=== PATIENT | female | born 1970 | race African-American/Black ===

== ENCOUNTER 2019-11-01 14:53 | Inpatient (IN) | payer BC, SELFPAY ==
[2019-11-01] VITALS (9 sets, daily range): BP systolic 79–103; BP diastolic 49–75; PULSE 71–79; RESP 16–20; TEMP 36.9–39.1; O2SAT 88–97; BMI 42.1
--- NOTE | ~2019-11-01 | XR_ITS ---
EXAMINATION: XR chest 1V portable DATE: 11/12/2019 06:49 INDICATION: Bilateral pneumonia. TECHNIQUE: A single frontal view of the chest was obtained. COMPARISON: Chest single view 11/09/2019 FINDINGS: There are airspace opacities in all lung zones bilaterally. No pleural effusion or pneumoth orax. The heart size is normal. There are surgical clips in left axilla. IMPRESSION: 1. Diffuse lung disease with slight improvement on the right, consistent with pneumonia versus pulmon rajendra edema versus acute respiratory distress syndrome (ARDS). Reviewed, dictated and finalized at location A. IMPRESSION: 1. Diffuse lung disease with slight improvement on the right, consistent with p neumonia versus pulmonary edema versus acute respiratory distress syndrome (CAPRICE S).
--- NOTE | ~2019-11-01 | XR_ITS ---
EXAMINATION: XR chest 1V portable DATE: 11/09/2019 06:05 INDICATION: Respiratory failure. TECHNIQUE: A single frontal view of the chest was obtained. COMPARISON: Chest single view 11/08/2019 FINDINGS: There are patchy airspace opacities in all lung zones bilaterally. No pleural effusion or p neumothorax. The heart size is normal. Surgical clips overlie left axilla. IMPRESSION: 1. Diffuse lung disease with slight improvement on the left, consistent with pneumonia versus pulmona ry edema versus acute respiratory distress syndrome (ARDS). Reviewed, dictated and finalized at location A. IMPRESSION: 1. Diffuse lung disease with slight improvement on the left, consistent with pn eumonia versus pulmonary edema versus acute respiratory distress syndrome (ARDS ).
--- NOTE | ~2019-11-01 | XR_ITS ---
EXAMINATION: XR chest 1V portable DATE: 11/01/2019 15:54 INDICATION: Cough and congestion. TECHNIQUE: A single frontal view of the chest was obtained. COMPARISON: Neck CT 11/09/2016 FINDINGS: There are airspace opacities involving all lung zones bilaterally with relative sparing of left upper lung zone. No pleural effusion or pneumothorax. The heart size is normal. IMPRESSION: 1. Diffuse lung disease, consistent with pneumonia versus pulmonary edema versus chronic lung disease . Reviewed, dictated and finalized at location A. IMPRESSION: 1. Diffuse lung disease, consistent with pneumonia versus pulmonary edema versu s chronic lung disease.
--- NOTE | ~2019-11-01 | XR_ITS ---
EXAMINATION: XR chest 1V portable DATE: 11/05/2019 05:49 INDICATION: Respiratory failure. TECHNIQUE: A single frontal view of the chest was obtained. COMPARISON: Chest single view 11/04/2019 FINDINGS: Lung volumes are small. There are airspace opacities involving all lung zones bilaterally. No pleural effusion or pneumothorax. The heart size is normal. IMPRESSION: 1. Stable diffuse lung disease, consistent with pneumonia versus pulmonary edema versus acute respira tory distress syndrome (ARDS). Reviewed, dictated and finalized at location A. IMPRESSION: 1. Stable diffuse lung disease, consistent with pneumonia versus pulmonary laureen a versus acute respiratory distress syndrome (ARDS).
--- NOTE | ~2019-11-01 | XR_ITS ---
XR chest 1V portable DATE: 11/07/2019 06:22 INDICATION: Respiratory failure TECHNIQUE: Portable upright AP chest on 11/07/2019 at 0546 hours COMPARISON: 11/06/2019 portable AP chest at 0519 hours FINDINGS: Persistent patchy consolidating infiltrates are again noted throughout both lung zones, rel atively sparing only the apices. No pleural effusion or pneumothorax is evident. Heart size appears within normal range. IMPRESSION: Stable extensive bilateral pulmonary infiltrates Reviewed, dictated and finalized at location A.
--- NOTE | ~2019-11-01 | XR_ITS ---
EXAMINATION: XR chest 1V portable DATE: 11/04/2019 06:06 INDICATION: Bilateral pneumonia. TECHNIQUE: A single frontal view of the chest was obtained. COMPARISON: Chest single view 11/03/2019 FINDINGS: The lung volumes are small. There are patchy airspace opacities throughout the lungs bilate rally. No pleural effusion or pneumothorax. The heart size is normal. IMPRESSION: 1. Stable diffuse lung disease, consistent with pulmonary edema versus pneumonia versus acute respira tory distress syndrome (ARDS). Reviewed, dictated and finalized at location A. IMPRESSION: 1. Stable diffuse lung disease, consistent with pulmonary edema versus pneumoni a versus acute respiratory distress syndrome (ARDS).
--- NOTE | ~2019-11-01 | US_ITS ---
EXAMINATION: US renal BI DATE: 11/02/2019 13:37 INDICATION: Acute renal failure TECHNIQUE: Multiple ultrasound grayscale images of the kidneys were obtained. COMPARISON: None. FINDINGS: The right kidney measures 10.1 x 4.7 x 3.9 cm. The left kidney measures 10.2 x 4.7 x 5.6 cm. The kidn eys demonstrate normal echogenicity. 2.9 cm anechoic cyst at the left kidney. There is no hydronephro sis in either kidney. No stones identified. The bladder is normal. IMPRESSION: 1. 2.9 cm left renal cyst. Otherwise normal kidneys with no hydronephrosis. Reviewed, dictated and finalized at location A.
--- NOTE | ~2019-11-01 | XR_ITS ---
EXAMINATION: XR chest 1V portable DATE: 11/03/2019 05:33 INDICATION: Pneumonia TECHNIQUE: frontal view of the chest was obtained. COMPARISON: Chest radiograph dated 11/03/2019 FINDINGS: Patchy airspace opacities throughout both lungs relatively sparing the apices which is without signif icant interval change accounting for differences in positioning. No pleural effusion or pneumothorax. The cardiomediastinal silhouette is normal. Surgical clips at the left axilla. IMPRESSION: 1. No significant change in bilateral airspace disease which could represent pneumonia or pulmonary e tye. Reviewed, dictated and finalized at location A. IMPRESSION: 1. No significant change in bilateral airspace disease which could represent pn eumonia or pulmonary edema.
--- NOTE | ~2019-11-01 | XR_ITS ---
XR chest 1V portable DATE: 11/08/2019 06:02 INDICATION: Respiratory failure TECHNIQUE: Portable upright AP chest on 11/08/2019 at 0526 hours COMPARISON: 11/07/2019 portable AP chest at 0546 hours FINDINGS: Extensive persistent lateral pulmonary infiltrates without significant change since 0. Heart size appears within normal limits. No pleural effusion or pneumothorax. Surgical clips overlie left axillary area. IMPRESSION: Persistent extensive bilateral pulmonary infiltrates, without significant change since 11/07/2019 Reviewed, dictated and finalized at location A. IMPRESSION: Persistent extensive bilateral pulmonary infiltrates, without signi ficant change since 11/07/2019
--- NOTE | ~2019-11-01 | XR_ITS ---
EXAMINATION: XR chest 1V portable DATE: 11/06/2019 05:50 INDICATION: Respiratory failure. TECHNIQUE: A single frontal view of the chest was obtained. COMPARISON: Chest single view 11/05/2019 FINDINGS: The lung volumes are small. There are patchy airspace opacities throughout the lungs bilate rally. No pleural effusion or pneumothorax. The heart size is normal. There are surgical clips in lef t axilla. IMPRESSION: 1. Stable diffuse lung disease, consistent with pneumonia versus pulmonary edema versus acute respira tory distress syndrome (ARDS). Reviewed, dictated and finalized at location A. IMPRESSION: 1. Stable diffuse lung disease, consistent with pneumonia versus pulmonary laureen a versus acute respiratory distress syndrome (ARDS).
--- NOTE | 2019-11-01 14:58 | ECG_ITS ---
Measurements Intervals Casa Rate: 77 P: 42 MT: 140 QRS: -10 QRSD: 105 T: -2 QT: 354 QTc: 401 Interpretive Statements SINUS RHYTHM INCOMPLETE RIGHT BUNDLE BRANCH BLOCK VOLTAGE CRITERIA FOR LVH BORDERLINE ST-T WAVE ABNORMALITY- ANT/INF LEADS BORDERLINE ECG Electronically Signed On 11-02-2019 7:13:56 CDT by Kayden Knapp D.O.
--- NOTE | 2019-11-01 15:14 | ED.URI ---
HPI - URI/Sore Throat General Chief Complaint: Upper Respiratory Infection Stated Complaint: COUGHING, TREATED WITH ANTIBX, NOT HELPING Time Seen by Provider: 11/01/19 15:15 Source: patient Mode of arrival: ambulatory Limitations: no limitations History of Present Illness HPI Narrative: A 49 y/o female presents to the ED with c/o a cough for 5 days. Pt states she was prescribed antibiotics over the phone by her PCP on (3 days ago) which she has been taking with no relief. Pt has become more SOB over the past few days and also c/o left-sided CP, diarrhea, and low grade fevers of 97 degrees F for a few days. Pt is not normally on oxygen at home. Pt notes that she works for [employer], but works over the phone and has not had contact with the residents. Pt has not taken Ibuprofen or Tylenol today. She denies smoking, alcohol use, drug use, sick contacts, and recent travel. Family member at bedside states she has not been experiencing any of the same symptoms as the pt. Onset (ago): day(s) () Related Data Home Medications Medication Instructions Recorded Confirmed amlodipine 11/01/19 carvedilol 11/01/19 doxycycline hyclate 11/01/19 fluoxetine mg 11/01/19 fluticasone propionate INTRANASAL 11/01/19 hydroxyzine HCl 11/01/19 lisinopril-hydrochlorothiazide tablet 11/01/19 methocarbamol mg 11/01/19 propranolol 11/01/19 spironolactone 11/01/19 trazodone 11/01/19 Allergies Allergy/AdvReac Type Severity Reaction Status Date / Time bupropion Allergy Severe HALLUCINATIONS Verified 11/09/16 14:28 & AGITATION Penicillins Allergy Severe Hives / Verified 11/09/16 14:28 Red Face latex Allergy Mild Rash Verified 11/09/16 14:28 Sulfa (Sulfonamide Allergy Mild Rash Verified 11/09/16 14:28 Antibiotics) Review of Systems Review of Systems: Narrative: CONSTITUTIONAL: Reports: low grade fevers of 97 degrees F; Denies chills, or sweats. CARDIOVASCULAR: Reports: left-sided CP; Denies palpitations, or edema. RESPIRATORY: Reports: cough, dyspnea GASTROINTESTINAL: Reports: diarrhea; Denies abdominal pain, nausea, vomiting. Neuro: Denies numbness Skin: Denies rash All systems reviewed & are unremarkable except as noted in HPI and below PMFSH Past Medical History Medical History Abnormal uterine bleeding Anxiety Back injury Depression Fibroids HTN (hypertension) IBS (irritable bowel syndrome) Panic disorder Wears glasses Surgical History Surgical History History of surgery on arm right Social History Social History (Updated 11/01/19 @ 15:39 by Samantha Anand) Smoking status: Never smoker Alcohol intake: never Substance use: never Comments PCP: Dr. Burnette Exam Narrative: Exam Narrative: GENERAL: Awake, alert, conversant HEAD: Normocephalic, atraumatic. NECK: Full range of motion CHEST: No respiratory distress, speaking in full sentences, no tachypnea HEART: Regular rate ABDOMEN: Non distended, non tender EXTREMITIES: Normal range of motion. No edema. SKIN: Warm, dry, no rash. NEURO: No focal deficits. Alert and oriented x3. Course Consultations Consultation #1: Discussed case with Dr. Bustos and accepted admission. Date: 11/01/19 Time: 15:56 Consultation #2: Discussed case with CELINE Krause and accepted admission. Date: 11/01/19 Time: 16:37 Vital Signs Vital signs: Vital Signs Temperature 36.9 C 11/01/19 14:56 Pulse Rate 79 11/01/19 14:56 Respiratory Rate 20 11/01/19 14:56 Blood Pressure 93/49 L 11/01/19 14:56 Pulse Oximetry 89 L 11/01/19 14:56 Temperature 39.1 C H 11/01/19 15:14 Pulse Rate 71 11/01/19 17:40 Respiratory Rate 18 11/01/19 17:40 Blood Pressure 103/75 11/01/19 17:40 Pulse Oximetry 97 11/01/19 17:40 MDM - URI/Sore Throat MDM Narrative Medical decision making narrative: Patient presents to the emergency department for eval
[2019-11-01 15:34] LABS: Basophils Percent Auto 0.1 % (0.2-1.2); Hematocrit 41.3 % (37.0-47.0); Hemoglobin 13.3 g/dL (12.0-15.0); Immature Granulocyte Absolute 0.07 K/mm3 (0.00-0.031); Immature Granulocyte Percent A 0.8 % (0-0.5); Lymphocytes Absolute Auto 1.23 K/mm3 (0.9-3.2); Lymphocytes Percent Auto 14.7 % (18.3-44.2); Mean Corpuscular HGB Conc 32.2 g/dl (32-36); Mean Corpuscular Hemoglobin 29.4 pg (26-34); Mean Corpuscular Volume 91.2 fl (80-100); Mean Platelet Volume 10.6 fl (7.4-10.4); Monocytes Absolute Auto 0.4 K/mm3 (0.1-0.6); Monocytes Percent Auto 5.1 % (2.6-8.5); Neutrophils Absolute Auto 6.7 K/mm3 (1.3-6.7); Neutrophils Percent Auto 79.3 % (45.5-73.1); Platelet Count Result 259 k/mm3 (150-375); Red Blood Count 4.53 M/mm3 (4.2-5.4); Red Cell Distribution Width 13.9 % (11.5-14.5); White Blood Count 8.4 K/mm3 (4.5-10.0)
[2019-11-01 15:37] LABS: Carboxyhemoglobin 0.5 % THb (0-2.0); Fractional Inspired Oxygen 32 %; HCO3 ABG 22.3 mEq/l (22.0-26.0); Methemoglobin ABG 0.3 %THb (0-1.5); Oxygen Content ABG 17.9 %vol (16.0-22.0); Oxygen Saturation ABG 95.9 % (95.0-100.0); Oxyhemoglobin 94.1 % THb (90.0-100.0); PCO2 ABG 36.5 mmHg (35.0-45.0); PO2 ABG 79.5 mmHg (80.0-100.0); PO2 FiO2 Ratio Arterial Blood 2.48 %; Reduced Hemoglobin 5.1 %THb (0-5.0); Total Hemoglobin 13.5 g/dL (12.0-18.0); pH ABG 7.403 (7.350-7.450)
[2019-11-01 15:38] LABS: Device NASAL CANNULA; Modified Allen's Test Pass; Site Drawn RIGHT RADIAL
[2019-11-01 15:43] LABS: Prothrombin Time 12.5 Seconds (11.1-14.7)
[2019-11-01 15:44] LABS: Partial Thromboplastin Time 32.8 SECONDS (22.3-36.8)
[2019-11-01 15:47] LABS: Alanine Aminotransferase 42 U/L (4-35); Alkaline Phosphatase 63 U/L (38-126); Aspartate Amino Transferase 61 U/L (14-36); Bilirubin,Total 0.7 mg/dL (0.2-1.3); Blood Urea Nitrogen 41 mg/dL (7-17); Calcium 8.7 mg/dL (8.4-10.2); Carbon Dioxide 24 mmol/L (22-30); Chloride 102 mmol/L (98-107); Estimated CRCL calculation 19 ml/min; Estimated Glomerular Filt Rate 15; Glucose 111 mg/dL (65-105); Lactate Dehydrogenase 1072 U/L (313-618); Potassium 4.4 mmol/L (3.4-5.0); Sodium 138 mmol/L (137-145)
[2019-11-01] MEDS: SODIUM CHLORIDE 0.9% IV 1,000 ML 999 ML IV CONT (15:53)
[2019-11-01 15:57] LABS: NT Pro B Type Natriuretic Pept 126 PG/ML (5-100); Troponin I < 0.012 ng/mL (0.000-0.034)
[2019-11-01 16:00] LABS: CRP 26.2 mg/dL (<1.0)
[2019-11-01 16:05] LABS: Lactic Acid Reflex 1.2 mmol/L (0.7-2.1)
[2019-11-01 17:23] LABS: Add Urine Microscopic? YES; Appearance Urine Cloudy (Clear); Bacteria Urine 3+ /hpf; Bilirubin Urine 1+ (Negative); Blood Urine 1+ (Negative); Color Urine Amber (Yellow); Glucose Urine UA Negative (Negative); Hyaline Casts Urine 50+ /lpf; Ketones Urine Trace mg/dL (Negative); Leukocyte Esterase Ur Negative LEU/UL (Negative); Mucus Urine Moderate /lpf; Nitrate Urine Negative (Negative); Protein Urine 2+ mg/dL (Negative); Specific Grav Ur 1.025 (1.001-1.035); Squamous Epithelial Cell Urine Many /hpf (Few); WBC Clumps Urine Present /HPF
--- NOTE | 2019-11-01 18:04 | ADMGEN ---
This patient, Jeaneth Junior, was admitted to Intensive Care Unit-2 at 1750. Patient/family oriented to hospital policies and general routines including ID bracelet, bed and alarms, visiting hours, pain management, procedures, bathroom and other care routines, personal items, smoking policy, room service/diet, and visiting hours. Valuables list has been completed. Information on how to activate the Rapid Response Team has been discussed. Patient/Family are encouraged to report perceived risks to care and to ask questions if they do not understand what they are told or what they should do.
[2019-11-01] MEDS: SODIUM CHLORIDE 0.9% IV 500 ML 999 ML IV CONT (18:18)
--- NOTE | 2019-11-01 19:41 | P.PCNBED_ITS ---
Procedures Central Line Placement: Right Femoral: Discussed w/ patient and/or surrogate, the non-emergent placement of a central venous catheter, including its clinical necessity/indication & associated potential risks & complications.: Yes The patient and/or surrogate understand(s) and acknowledge(s) the need to proceed with central venous catheter insertion as an important element of the patient's clinical management.: Yes (I have discussed with the patient and/or surrogate) Central Line Date: 11/01/19 Pre-procedural Time-Out was completed immediately before starting the procedure and confirmed: Patient Identification, Site, Procedure, Patient Position and the Availability of Requisite Equipment.: Yes Patient Position: supine Patient placed on monitor/pulse ox: Yes Provider Prep: mask, sterile gown, sterile gloves and Max. sterile barrier precautions Central line prep: Povidone-Iodine 1% and sterile full body sheet applied Local anesthesia used: lidocaine 1% Ultrasound used for placement: Yes Central line lumen inserted: triple Icelandic: 7 Length (cm): 16 Depth of Insertion (cm): 16 Post procedure: sutured in place Patient tolerated procedure: well Complications: none
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
[2019-11-01] MEDS: SODIUM CHLORIDE 0.9% IV 1,000 ML 50 ML IV CONT (19:53)
[2019-11-02] VITALS (18 sets, daily range): BP systolic 95–113; BP diastolic 61–86; PULSE 70–95; RESP 18–30; TEMP 37.1–38.5; O2SAT 90–95; BMI 42.1
[2019-11-02] MEDS: BENZOCAINE/MENTHOL (*BKC) 18 EA LOZENGE 1 LOZENGE PO (02:36)
[2019-11-02] MEDS: GUAIFENESIN/DEXTROMETHORPHAN 10 ML UDC PO ×4 (02:36→20:39)
[2019-11-02 05:12] LABS: Basophils Percent Auto 0.2 % (0.2-1.2); Eosinophils Percent Auto 0.1 % (0-4.4); Hematocrit 35.8 % (37.0-47.0); Hemoglobin 11.4 g/dL (12.0-15.0); Immature Granulocyte Percent A 1.1 % (0-0.5); Lymphocytes Absolute Auto 1.22 K/mm3 (0.9-3.2); Lymphocytes Percent Auto 13.7 % (18.3-44.2); Mean Corpuscular HGB Conc 31.8 g/dl (32-36); Mean Corpuscular Hemoglobin 29.6 pg (26-34); Mean Platelet Volume 10.5 fl (7.4-10.4); Monocytes Absolute Auto 0.5 K/mm3 (0.1-0.6); Monocytes Percent Auto 5.7 % (2.6-8.5); Neutrophils Percent Auto 79.2 % (45.5-73.1); Platelet Count Result 240 k/mm3 (150-375); Red Blood Count 3.85 M/mm3 (4.2-5.4); White Blood Count 8.9 K/mm3 (4.5-10.0)
[2019-11-02 05:23] LABS: Lactic Acid 0.6 mmol/L (0.7-2.1)
[2019-11-02 05:24] LABS: Alanine Aminotransferase 35 U/L (4-35); Albumin Level 3.3 g/dL (3.5-5.1); Alkaline Phosphatase 56 U/L (38-126); Aspartate Amino Transferase 49 U/L (14-36); Bilirubin,Total 0.5 mg/dL (0.2-1.3); Blood Urea Nitrogen 40 mg/dL (7-17); Calcium 7.9 mg/dL (8.4-10.2); Carbon Dioxide 22 mmol/L (22-30); Chloride 108 mmol/L (98-107); Estimated CRCL calculation 29 ml/min; Estimated Glomerular Filt Rate 26; Glucose 110 mg/dL (65-105); Potassium 4.3 mmol/L (3.4-5.0); Sodium 142 mmol/L (137-145)
--- NOTE | 2019-11-02 08:34 | WPDCNINT ---
Assessment and Plan Assessment and plan (1) Respiratory failure: Qualifiers: Chronicity: acute Respiratory failure complication: hypoxia Qualified Code(s): J96.01 - Acute respiratory failure with hypoxia Code(s): J96.90 - Respiratory failure, unspecified, unspecified whether with hypoxia or hypercapnia Status: Acute Assessment and Plan: patient with worsening respiratory failure along with cough, fevers, myalgias. - patient had lymphopenia, elevated CRP, elevated LDH, elevated creatinine - bilateral pneumonia chest x-ray - given all the above symptoms and lab /radiology results, patient fits the criteria for COVID-19, - COVID-19 Swab was sent out to lab. waiting results - influenza was negative - patient started on azithromycin and ceftriaxone (2) Bilateral pneumonia: Qualifiers: Lung location: unspecified part of lung Pneumonia type: due to unspecified organism Qualified Code(s): J18.9 - Pneumonia, unspecified organism Code(s): J18.9 - Pneumonia, unspecified organism Status: Acute Assessment and Plan: patient currently on high flow nasal cannula, will maintain O2 sats greater than 92% - continue antibiotics as above - Robitussin p.r.n. for cough along with benzocaine lozenges (3) Acute kidney injury: Code(s): N17.9 - Acute kidney failure, unspecified Status: Acute Assessment and Plan: patient with acute kidney injury with elevated creatinine of 3.8 on admission. - Patient was gently hydrated with improvement in creatinine to 2.4 this morning. - Continue monitor urine output, electrolytes and renal function (4) Depression: Code(s): F32.9 - Major depressive disorder, single episode, unspecified Status: Chronic Assessment and Plan: patient with history depression, on fluoxetine, will continue (5) Anxiety: Code(s): F41.9 - Anxiety disorder, unspecified Status: Chronic (6) DVT prophylaxis: Code(s): Z29.9 - Encounter for prophylactic measures, unspecified Status: Acute Assessment and Plan: will add heparin SQ Additional Plan discussed with patient updated with her condition and plan of care. I answered all questions and updated her with her lab and radiology reports. Code status: Full code Critical care time spent: 38 minutes Due to a high probability of clinically significant, life threatening deterioration, the patient required my highest level of preparedness to intervene emergently and I personally spent this critical care time directly and personally managing the patient. This critical care time included obtaining a history; examining the patient; pulse oximetry; ordering and review of studies; arranging urgent treatment with development of a management plan; evaluation of patient's response to treatment; frequent reassessment; and discussions with other providers. It was exclusive of separately billable procedures and treating other patients and teaching time. 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 Patient started complaining of shortness of breath and left-sided chest pain which is worsened since the last 3 days. Patient also complained of diarrhea and low-grade fevers. In states she works at [employer] but has been working over the phone and from home, And has not
[2019-11-02] MEDS: FLUOXETINE HCL 20 MG CAP PO (09:22)
[2019-11-02] MEDS: HEPARIN SODIUM 5,000 UNITS/ML VIAL 5000 UNITS SUB-Q ×2 (09:22→20:36)
[2019-11-02] MEDS: ACETAMINOPHEN 325 MG TABLET 650 MG PO ×3 (09:30→23:39)
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
[2019-11-02] MEDS: SODIUM CHLORIDE 0.9% IV 1,000 ML 50 ML IV CONT (15:28)
[2019-11-02 15:40] LABS: Creatine Kinase 432 U/L (30-135)
[2019-11-02 17:15] LABS: Creatinine Urine 199.3 mg/dL; Total Protein Urine Random 44 mg/dL
[2019-11-02 17:19] LABS: Sodium Urine Random 120 meq/L
--- NOTE | 2019-11-02 17:50 | PM.IMPN ---
Progress Note: A&P Assessment and Plan (1) DVT prophylaxis: Code(s): Z29.9 - Encounter for prophylactic measures, unspecified Status: Acute Assessment and Plan: On heparin. (2) Anxiety: Code(s): F41.9 - Anxiety disorder, unspecified Status: Chronic Assessment and Plan: On SSRI. (3) Depression: Code(s): F32.9 - Major depressive disorder, single episode, unspecified Status: Chronic Assessment and Plan: Continue fluoxetine. (4) Bilateral pneumonia: Qualifiers: Lung location: unspecified part of lung Pneumonia type: due to unspecified organism Qualified Code(s): J18.9 - Pneumonia, unspecified organism Code(s): J18.9 - Pneumonia, unspecified organism Status: Acute Assessment and Plan: The patient is on a Zithromax and Rocephin. Pt has a central line pt is on levophed and oxygen. (5) Respiratory failure: Qualifiers: Chronicity: acute Respiratory failure complication: hypoxia Qualified Code(s): J96.01 - Acute respiratory failure with hypoxia Code(s): J96.90 - Respiratory failure, unspecified, unspecified whether with hypoxia or hypercapnia Status: Acute Assessment and Plan: The patient is on 8 L. The patient is a full code. Pt is on vasopressors, iv fluids, Iv rocephin and iv azithromycin. benzocaine lozenges. I agree with career coordinator plan, long discussion with him about patient progress. To save critical supplies and PAPR mask, shorter note from me. Awaiting covid testing. (6) Acute kidney injury: Code(s): N17.9 - Acute kidney failure, unspecified Status: Acute Assessment and Plan: Pt seen by nephrology. ARF secondary to dehydration continue IV hydration. Renal Us shows 2.9 cm left renal cyst. continue to monitor BMP. 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 symptomatic with chest pain, diarrhea and shortness of breath. Pt has central line insitu and is currently on 8 liters of oxygen. awaiting Covid testing. CXr shows BL pneumonia. Flu screen negative. 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 Chest x-ray was read as diffuse lung disease, consistent with pneumonia versus pulmonary edema versus chronic lung disease. Review of Systems Review of Systems: All systems reviewed & are unremarkable except as noted in HPI and below Constitutional: Constitutional: Reports fatigue Cardiovascular: Cardiovascular: Reports chest pain at rest and Reports dyspnea Respiratory: Respiratory: Reports chest congestion, Reports cough and Reports dyspnea Comments: Pleuritc chest pain Gastrointestinal: Gastrointestinal: Reports diarrhea Exam Narrative: Exam Narrative: Critically unwell middle aged lady on oxygen in ICU Objective Data Vital Signs Vital Signs: Vital Signs - 24 hr 11/01/19 18:00 11/01/19 18:10 11/01/19 19:30 Temperature 37.2 C Pulse Rate 75 77 Respiratory Rate 19 Blood Pressure 79/52 L 99/65 L Pulse Oximetry 91 11/01/19 20:00 11/01/19 21:24 11/01/19 22:00 Temperature 37.0 C Pulse Rate 77 74 Respiratory Rate 20 Blood Pressure 98/70 L Pulse Oximetry 92 93 11/02/19 00:00 11/02/19 02:00 11/02/19 04:00 Temperature 37.1 C 37.1 C Pulse Rate 70 81 74 Respiratory Rate 19 20 Blood Pressure 100/65 107/71 Pulse Oximetry 93 93 11/02/19 06:00 11/02/19 07:46 11/02/19 08:00 Temperature 37.8 C H Pulse Rate 79 76 Respiratory Rate 25 H Blood Pressure 104/68 Pulse Oximetry 95 95 11/02/19 09:30 11/02/19 10:00 11/02/19 10:30 Temperature 37.7 C H 37.4 C Pulse Rate 80 Respiratory Rate Blood Pressure Pulse Oximetry 11/02/19 12:00 11/02/19 14:00 11/02/19 15:56 Temperature 37.4 C 38.5 C H Pulse Rate 78 79 Respiratory Rate 19 Blood Pressure 95
[2019-11-03] VITALS (20 sets, daily range): BP systolic 103–146; BP diastolic 65–99; PULSE 68–97; RESP 14–29; TEMP 37.2–38.2; O2SAT 83–96
[2019-11-03] MEDS: BENZOCAINE/MENTHOL (*BKC) 18 EA LOZENGE 1 LOZENGE PO (04:20)
[2019-11-03] MEDS: GUAIFENESIN/DEXTROMETHORPHAN 10 ML UDC PO ×5 (04:20→21:05)
[2019-11-03 04:43] LABS: Basophils Percent Auto 0.3 % (0.2-1.2); Eosinophils Percent Auto 0.3 % (0-4.4); Immature Granulocyte Percent A 1.9 % (0-0.5); Lymphocytes Absolute Auto 1.94 K/mm3 (0.9-3.2); Lymphocytes Percent Auto 18.3 % (18.3-44.2); Mean Corpuscular HGB Conc 31.4 g/dl (32-36); Mean Corpuscular Hemoglobin 29.5 pg (26-34); Mean Corpuscular Volume 93.8 fl (80-100); Mean Platelet Volume 10.3 fl (7.4-10.4); Monocytes Absolute Auto 0.5 K/mm3 (0.1-0.6); Monocytes Percent Auto 4.9 % (2.6-8.5); Neutrophils Absolute Auto 7.9 K/mm3 (1.3-6.7); Neutrophils Percent Auto 74.3 % (45.5-73.1); Platelet Count Result 278 k/mm3 (150-375); Red Blood Count 3.73 M/mm3 (4.2-5.4); Red Cell Distribution Width 14.4 % (11.5-14.5); White Blood Count 10.6 K/mm3 (4.5-10.0)
[2019-11-03 05:12] LABS: Blood Urea Nitrogen 31 mg/dL (7-17); Calcium 7.8 mg/dL (8.4-10.2); Carbon Dioxide 23 mmol/L (22-30); Chloride 109 mmol/L (98-107); Estimated CRCL calculation 49 ml/min; Estimated Glomerular Filt Rate 48; Glucose 101 mg/dL (65-105); Lactate Dehydrogenase 1044 U/L (313-618); Phosphorus 3.7 mg/dL (2.5-4.5); Potassium 4.2 mmol/L (3.4-5.0); Sodium 141 mmol/L (137-145)
[2019-11-03 06:27] LABS: CRP 24.7 mg/dL (<1.0)
[2019-11-03] MEDS: HEPARIN SODIUM 5,000 UNITS/ML VIAL 5000 UNITS SUB-Q ×2 (09:01→21:07)
[2019-11-03] MEDS: FLUOXETINE HCL 20 MG CAP PO (09:01)
[2019-11-03] MEDS: SODIUM CHLORIDE 0.9% IV 1,000 ML 50 ML IV CONT (09:14)
--- NOTE | 2019-11-03 10:38 | PCDIET ---
ICU Rounding Note: Patient refused one meal yesterday and ate 100% of other two meals on regular diet with Ensure Compact BID. Last recorded weight is 104.5kg which is stable. Bowel Motility: BM x 1 on 11/02/19. Labs Reviewed: BUN (31), Cr (1.4), Areli Ca (8.36) Meds Noted: Zithromax, Rocephin, Levophed, NS at 50mL/hr Additional Notes: No documented skin breakdown. Following daily in ICU rounds. Assessing/reassessing every 3 days.
--- NOTE | 2019-11-03 10:51 | WPDINTPN ---
Progress Note: A&P Assessment and Plan (1) Respiratory failure: Qualifiers: Chronicity: acute Respiratory failure complication: hypoxia Qualified Code(s): J96.01 - Acute respiratory failure with hypoxia Code(s): J96.90 - Respiratory failure, unspecified, unspecified whether with hypoxia or hypercapnia Status: Acute Assessment and Plan: patient presented with worsening respiratory failure along with cough, fevers, myalgias. - patient had lymphopenia, elevated CRP, elevated LDH, elevated creatinine, bilateral pneumonia chest x-ray - currently being treated for viral pneumonia - given all the above symptoms and lab /radiology results, patient fits the criteria for COVID-19, - COVID-19 Swab was sent to outside lab. waiting results - influenza was negative - patient started on azithromycin and ceftriaxone (2) Bilateral pneumonia: Qualifiers: Lung location: unspecified part of lung Pneumonia type: due to unspecified organism Qualified Code(s): J18.9 - Pneumonia, unspecified organism Code(s): J18.9 - Pneumonia, unspecified organism Status: Acute Assessment and Plan: patient currently on high flow nasal cannula, will maintain O2 sats greater than 92% - continue antibiotics as above - Robitussin p.r.n. for cough along with benzocaine lozenges - Combivent p.r.n. - blood cultures, urine cultures and sputum cultures are negative (3) Acute kidney injury: Code(s): N17.9 - Acute kidney failure, unspecified Status: Acute Assessment and Plan: patient with acute kidney injury with elevated creatinine of 3.8 on admission. this could be related to diuretic use, dehydration, hypovolemia, infection - Patient was gently hydrated with improvement in creatinine to 1.4 this morning. - Continue monitor urine output, electrolytes and renal function (4) Depression: Qualifiers: Depression Type: unspecified Qualified Code(s): F32.9 - Major depressive disorder, single episode, unspecified Code(s): F32.9 - Major depressive disorder, single episode, unspecified Status: Chronic Assessment and Plan: patient with history depression, on fluoxetine, will continue (5) Anxiety: Code(s): F41.9 - Anxiety disorder, unspecified Status: Chronic (6) DVT prophylaxis: Code(s): Z29.9 - Encounter for prophylactic measures, unspecified Status: Acute Assessment and Plan: will add heparin SQ (7) Essential hypertension: Code(s): I10 - Essential (primary) hypertension Status: Acute Assessment and Plan: patient has history of essential hypertension, blood pressures are elevated, will add amlodipine which is her home medication Additional Plan discussed with patient updated with her condition and plan of care. I answered all questions and updated her with her lab and radiology reports. Code status: Full code Critical care time spent: 33 minutes Due to a high probability of clinically significant, life threatening deterioration, the patient required my highest level of preparedness to intervene emergently and I personally spent this critical care time directly and personally managing the patient. This critical care time included obtaining a history; examining the patient; pulse oximetry; ordering and review of studies; arranging urgent treatment with development of a management plan; evaluation of patient's response to treatment; frequent reassessment; and discussions with other providers. It was exclusive of separately billable procedures and treating other patients and teaching time. Please see Assessment and Plan section and the rest of the note for further information on patient assessment and treatment Subjective Date/time seen: 11/03/19 10:51 Reason for consult: acute respiratory failure with pneumonia Patient seen examined this morning. Urine output has been adequate, creatinin
--- NOTE | 2019-11-03 11:57 | PM.IMPN ---
Progress Note: A&P Assessment and Plan (1) Respiratory failure: Qualifiers: Chronicity: acute Respiratory failure complication: hypoxia Qualified Code(s): J96.01 - Acute respiratory failure with hypoxia Code(s): J96.90 - Respiratory failure, unspecified, unspecified whether with hypoxia or hypercapnia Status: Acute Assessment and Plan: The patient remains on 8 L but stable since admission. The patient is a full code. Pt has not required any vasopressors. She remains on IVF and IV abx. COVID testing pending. Continue to wean O2 as tolerated. Remove central line when safe to do so. (2) Bilateral pneumonia: Qualifiers: Lung location: unspecified part of lung Pneumonia type: due to unspecified organism Qualified Code(s): J18.9 - Pneumonia, unspecified organism Code(s): J18.9 - Pneumonia, unspecified organism Status: Acute Assessment and Plan: CXR in admission showing bilateral airspace disease. Patient with fever but fever curve improving. The patient currently on Zithromax and Rocephin. Combivent available as needed. Sputum and urine cx negative. BCx NGTD. Wean O2 as tolerated. (3) Acute kidney injury: Code(s): N17.9 - Acute kidney failure, unspecified Status: Acute Assessment and Plan: Cr 3.8 on admission. Pt seen by nephrology. ARF secondary to dehydration +/- ATN. Renal US shows 2.9 cm left renal cyst. Cr trending downward with IVF. Unclear on baseline renal function but suspect it is normal. Continue IVF. Appreciate nephrology input. (4) HTN (hypertension): Qualifiers: Hypertension type: essential hypertension Qualified Code(s): I10 - Essential (primary) hypertension Code(s): I10 - Essential (primary) hypertension Status: Acute Assessment and Plan: Blood pressure dropped to 79/52 on admission. Central line was placed but patient has not required norepinephrine. BP reviewed on 11/03/19. BP has come up and actually her Norvasc has been resumed. Continue to monitor. (5) Depression: Qualifiers: Depression Type: unspecified Qualified Code(s): F32.9 - Major depressive disorder, single episode, unspecified Code(s): F32.9 - Major depressive disorder, single episode, unspecified Status: Chronic Assessment and Plan: Mood stable. Continue fluoxetine. (6) DVT prophylaxis: Code(s): Z29.9 - Encounter for prophylactic measures, unspecified Status: Acute Assessment and Plan: Heparin SQ. Subjective Date/time seen: 11/03/19 11:57 Interval history: 49yo female here for acute respiratory failure from pneumonia. Chart reviewed. Assuming care. Patient feels short of breath at rest. Worse with minimal exertion. No chest pain or abdominal pain. She does have diffuse myalgias. No nausea or vomiting. She does get mildly nauseous related to coughing jags. Cough is nonproductive. She does become hypoxic with the coughing jags according to the nurse. She has not required any of the norepinephrine since admission. Eating small amounts. Exam Narrative: Exam Narrative: tm 101.3 yesterday. 98.9 146/81 90 28 93% 8L HFNC Gen - NARD, appears comfortable. No conversational dyspnea Chest -mild diffuse inspiratory crackles. No wheezing. Becomes tachypneic with exertion. CV - RRR S1/S2. Telemetry showing no significant dysrhythmias. Abd - Soft, NT/ND, Positive BS. Right femoral line dressing is clean dry -Soriano catheter secured draining clear yellow urine. Ext - No pedal edema Psych - Nml mood and affect Skin - Warm and dry Objective Data Vital Signs Vital Signs: Vital Signs - 24 hr 11/02/19 12:00 11/02/19 14:00 11/02/19 15:56 Temperature 99.4 F 101.3 F H Pulse Rate 78 79 Respiratory Rate 19 Blood Pressure 95/65 L Pulse Oximetry 90 11/02/19 16:00 11/02/19 17:27 11/02/19 18:00 Temperature 101.3 F H
[2019-11-03] MEDS: AMLODIPINE BESYLATE 5 MG TABLET 10 MG PO (12:19)
[2019-11-03] MEDS: ACETAMINOPHEN 325 MG TABLET 650 MG PO ×2 (12:22→21:05)
[2019-11-03 16:11] LABS: Procalcitonin 1.44 ng/mL (<0.10)
[2019-11-04] VITALS (23 sets, daily range): BP systolic 102–149; BP diastolic 48–102; PULSE 66–94; RESP 17–36; TEMP 36.8–38.1; O2SAT 88–99
--- NOTE | 2019-11-04 | ECHO_ITS ---
Patient Info Name: Jeaneth Junior Age: 49 years : 1970 Gender: Female Ht: 62 in Wt: 243 lbs BSA: 2.26 m2 HR: 79 bpm BP: 102 / 48 mmHg Heart Rhythm: Sinus Rhythm Technical Quality: Good Exam Date: 11/04/2019 12:52 PM Exam Location: [facility] Exam Room: ICU 02 Patient Status: Inpatient Admit Date: 11/01/2019 Staff Ordering Physician: Cristhian Mcintyre MD Tobacco Sprayer: Sonya Saunders RCS Attending Provider: Enoc Guerrier MD Exam Type: CA echo doppler color flow Study Info Indications - fluid volume excess Complete two-dimensional, color flow and Doppler transthoracic echocardiogram is performed. Summary 1. Normal left ventricular size and global function with no focal wall motion abnormalities. Mild concentric left ventricular hypertrophy. Borderline criteria for diastolic dysfunction. Measured ejection fraction 64%, visual estimate 60-65%. 2. Left atrial chamber dimension is mildly enlarged. 3. There is moderate tricuspid valve regurgitation. 4. Mild pulmonary hypertension, estimated pulmonary arterial systolic pressure is 42 mmHg. 5. Normal sinus rhythm. Left Ventricle Left ventricular chamber dimension is normal. Left ventricular systolic function is normal, estimated at 60-65%. There is mildly increased left ventricular wall thickness. Left ventricular septal wall motion is normal. The left ventricular diastolic function is abnormal. Right Ventricle Right ventricular chamber dimension is normal. Right ventricular systolic function is normal. Left Atria Left atrial chamber dimension is mildly enlarged. Right Atria Right atrial chamber dimension is normal. Aortic Valve The aortic valve is trileaflet. There is no aortic valve sclerosis. There is no aortic valve stenosis. There is no aortic valve regurgitation. Pulmonic Valve The pulmonic valve is normal. There is no pulmonic valve stenosis. There is no pulmonic regurgitation. Mitral Valve The mitral valve has normal leaflets. There is no mitral valve stenosis. There is no mitral valve regurgitation. Tricuspid Valve The tricuspid valve leaflets are normal. There is no significant tricuspid valve stenosis. There is moderate tricuspid valve regurgitation. Mild pulmonary hypertension, estimated pulmonary arterial systolic pressure is 42 mmHg. Pericardium/Pleural The pericardium appears normal. There is no pericardial effusion. Inferior Vena Cava Normal inferior vena cava with >50% collapse upon inspiration consistent with Empty right atrial pressure, 10 mmHg. Aorta The aortic root size at the sinus of Valsalva is normal. The prox ascending aorta size is normal. Left Ventricular Outflow Tract Name Value Normal LVOT 2D LVOT Diameter 2.0 cm LVOT Doppler LVOT Peak Gradient 7 mmHg LVOT Mean Gradient 4 mmHg LVOT VTI 24 cm LVOT VTI/AV VTI Ratio 0.9 LVOT Stroke Volume 80 ml LVOT CO 19.5 l/min
[2019-11-04] MEDS: GUAIFENESIN/DEXTROMETHORPHAN 10 ML UDC PO ×4 (04:06→20:30)
[2019-11-04] MEDS: ACETAMINOPHEN 325 MG TABLET 650 MG PO ×2 (04:06→20:34)
[2019-11-04] MEDS: SODIUM CHLORIDE 0.9% IV 1,000 ML 50 ML IV CONT (04:08)
[2019-11-04 04:36] LABS: Basophils Absolute Auto 0.1 K/mm3 (0.0-0.1); Basophils Percent Auto 0.6 % (0.2-1.2); Eosinophils Absolute Auto 0.1 K/mm3 (0-0.3); Eosinophils Percent Auto 1.2 % (0-4.4); Hematocrit 35.8 % (37.0-47.0); Hemoglobin 11.3 g/dL (12.0-15.0); Immature Granulocyte Absolute 0.43 K/mm3 (0.00-0.031); Lymphocytes Absolute Auto 1.68 K/mm3 (0.9-3.2); Lymphocytes Percent Auto 19.4 % (18.3-44.2); Mean Corpuscular HGB Conc 31.6 g/dl (32-36); Mean Corpuscular Volume 91.8 fl (80-100); Mean Platelet Volume 9.8 fl (7.4-10.4); Monocytes Absolute Auto 0.7 K/mm3 (0.1-0.6); Monocytes Percent Auto 7.6 % (2.6-8.5); Neutrophils Absolute Auto 5.8 K/mm3 (1.3-6.7); Neutrophils Percent Auto 66.2 % (45.5-73.1); Platelet Count Result 324 k/mm3 (150-375); Red Cell Distribution Width 14.2 % (11.5-14.5); White Blood Count 8.7 K/mm3 (4.5-10.0)
[2019-11-04 04:58] LABS: Alanine Aminotransferase 37 U/L (4-35); Albumin Level 3.2 g/dL (3.5-5.1); Alkaline Phosphatase 74 U/L (38-126); Aspartate Amino Transferase 54 U/L (14-36); Bilirubin,Total 0.5 mg/dL (0.2-1.3); Blood Urea Nitrogen 18 mg/dL (7-17); Calcium 8.2 mg/dL (8.4-10.2); Carbon Dioxide 26 mmol/L (22-30); Chloride 107 mmol/L (98-107); Estimated CRCL calculation 63 ml/min; Estimated Glomerular Filt Rate > 60; Glucose 106 mg/dL (65-105); Magnesium 1.8 mg/dL (1.6-2.3); Phosphorus 3.3 mg/dL (2.5-4.5); Potassium 4.3 mmol/L (3.4-5.0); Sodium 139 mmol/L (137-145)
[2019-11-04 05:08] LABS: CRP 23.9 mg/dL (<1.0)
[2019-11-04 05:39] LABS: Alveolar/Arterial O2 Gradient 399.2 mmHg; Base Excess ABG -0.9 mEq/l (+/-2.0); Carboxyhemoglobin 0.3 % THb (0-2.0); Device HIGH FLOW NASAL CANN; Fractional Inspired Oxygen 70 %; HCO3 ABG 23.5 mEq/l (22.0-26.0); Methemoglobin ABG 0.4 %THb (0-1.5); Modified Allen's Test Pass; Oxygen Content ABG 15.8 %vol (16.0-22.0); Oxygen Saturation ABG 90.7 % (95.0-100.0); Oxyhemoglobin 89.6 % THb (90.0-100.0); PCO2 ABG 38.3 mmHg (35.0-45.0); PO2 ABG 58.7 mmHg (80.0-100.0); PO2 FiO2 Ratio Arterial Blood 0.84 %; Reduced Hemoglobin 9.7 %THb (0-5.0); Site Drawn RIGHT RADIAL; Total Hemoglobin 12.5 g/dL (12.0-18.0); pH ABG 7.406 (7.350-7.450)
[2019-11-04] MEDS: FLUOXETINE HCL 20 MG CAP PO (07:38)
[2019-11-04] MEDS: AMLODIPINE BESYLATE 5 MG TABLET 10 MG PO (07:38)
[2019-11-04] MEDS: HEPARIN SODIUM 5,000 UNITS/ML VIAL 5000 UNITS SUB-Q ×2 (07:39→20:29)
--- NOTE | 2019-11-04 08:44 | PM.IMPN ---
Progress Note: A&P Assessment and Plan (1) Respiratory failure: Qualifiers: Chronicity: acute Respiratory failure complication: hypoxia Qualified Code(s): J96.01 - Acute respiratory failure with hypoxia Code(s): J96.90 - Respiratory failure, unspecified, unspecified whether with hypoxia or hypercapnia Status: Acute Assessment and Plan: The patient's O2 requirement worsened yesterday and now on 13L (up from 8 L). The patient is a full code. Pt has not required any vasopressors. She remains on IVF and IV abx. COVID testing pending. Continue to wean O2 as tolerated. Discussed with mold laminator. He offered hydroxychloroquine but patient declined at this time. (2) Bilateral pneumonia: Qualifiers: Lung location: unspecified part of lung Pneumonia type: due to unspecified organism Qualified Code(s): J18.9 - Pneumonia, unspecified organism Code(s): J18.9 - Pneumonia, unspecified organism Status: Acute Assessment and Plan: CXR in admission showing bilateral airspace disease. Patient still with fever intermittently. The patient currently on Zithromax and Rocephin. Combivent available as needed. Sputum and urine cx negative. BCx NGTD. Wean O2 as tolerated. (3) Acute kidney injury: Code(s): N17.9 - Acute kidney failure, unspecified Status: Acute Assessment and Plan: Cr 3.8 on admission. Pt seen by nephrology. ARF secondary to dehydration +/- ATN. Renal US shows 2.9 cm left renal cyst otherwise normal. Cr trending downward with IVF to Cr of 1.1. Unclear on baseline renal function but suspect it is normal. Continue IVF at low dose since patient not eating much. Appreciate nephrology input. (4) Elevated transaminase level: Code(s): R74.0 - Nonspecific elevation of levels of transaminase and lactic acid dehydrogenase [LDH] Status: Acute Assessment and Plan: AST and ALT elevated on admission to 61 and 42 respectfully. Levels checked periodically and have fluctuated but not worsened. Suspect related to the infectious etiology as above. Continue to monitor periodically. (5) HTN (hypertension): Qualifiers: Hypertension type: essential hypertension Qualified Code(s): I10 - Essential (primary) hypertension Code(s): I10 - Essential (primary) hypertension Status: Acute Assessment and Plan: Blood pressure dropped to 79/52 on admission. Central line was placed but patient has not required norepinephrine. BP has improved and Norvasc has been resumed. BP reviewed on 11/04/19 and remains well controlled. Will cut back Norvasc so as not to over correct. Continue to monitor. (6) Depression: Qualifiers: Depression Type: unspecified Qualified Code(s): F32.9 - Major depressive disorder, single episode, unspecified Code(s): F32.9 - Major depressive disorder, single episode, unspecified Status: Chronic Assessment and Plan: Mood stable. Continue fluoxetine. (7) DVT prophylaxis: Code(s): Z29.9 - Encounter for prophylactic measures, unspecified Status: Acute Assessment and Plan: Heparin SQ. Subjective Date/time seen: 11/04/19 08:44 Interval history: 49yo female here for acute respiratory failure from pneumonia. Patient required increasing supplemental oxygen yesterday and overnight. She is currently on 13 L up from 8 L yesterday. She has some mild nausea with coughing jags. The coughing jags are associated with hypoxia. No nausea or vomiting otherwise. No diarrhea. Cough is nonproductive. No chest pain. Patient with shortness of breath at rest worse with minimal activity. Patient is not eating much. Exam Narrative: Exam Narrative: tm 100.8 98.5 118/81 76 25 94% 13L Gen - NARD, appears comfortable Chest - scattered inspiratory rhonchi, becomes more tachypneic with minimal activity CV - RRR S1/S2. Telemetry showing
--- NOTE | 2019-11-04 08:45 | WPDINTPN ---
Progress Note: A&P Assessment and Plan (1) Respiratory failure: Qualifiers: Chronicity: acute Respiratory failure complication: hypoxia Qualified Code(s): J96.01 - Acute respiratory failure with hypoxia Code(s): J96.90 - Respiratory failure, unspecified, unspecified whether with hypoxia or hypercapnia Status: Acute Assessment and Plan: patient presented with worsening respiratory failure along with cough, fevers, myalgias. - patient had lymphopenia, elevated CRP, elevated LDH, elevated creatinine, bilateral pneumonia chest x-ray - Suspected to have COVID-19 and PCR has come back positive - influenza was negative - patient started on empiric azithromycin and ceftriaxone - I discussed pros and cons of treating with empiric hydroxychloroquine. Patient at this time does not want to try any unproven treatment. - patient she presented with acute kidney injury and received fluids. Patient on IV fluids at this time. I will discontinue IV fluids and start Lasix. - although patient is hypoxic she is not in any respiratory distress. She is saturating adequately on the high-flow nasal cannula at this time. I will continue close monitoring and try Lasix. obviously if she worsens, then she will need to be intubated and placed on invasive mechanical ventilation. - continue triple isolation (2) Bilateral pneumonia: Qualifiers: Lung location: unspecified part of lung Pneumonia type: due to unspecified organism Qualified Code(s): J18.9 - Pneumonia, unspecified organism Code(s): J18.9 - Pneumonia, unspecified organism Status: Acute Assessment and Plan: patient currently on high flow nasal cannula, will maintain O2 sats greater than 92% - continue antibiotics as above - Robitussin p.r.n. for cough along with benzocaine lozenges - Combivent p.r.n. - blood cultures, urine cultures and sputum cultures are negative (3) Acute kidney injury: Code(s): N17.9 - Acute kidney failure, unspecified Status: Acute Assessment and Plan: patient with acute kidney injury with elevated creatinine of 3.8 on admission. this could be related to diuretic use, dehydration, hypovolemia, infection - Patient was gently hydrated with improvement in creatinine to 1.1 this morning. - Continue monitor urine output, electrolytes and renal function - Lasix at this time due to worsening Hypoxia. (4) Depression: Qualifiers: Depression Type: unspecified Qualified Code(s): F32.9 - Major depressive disorder, single episode, unspecified Code(s): F32.9 - Major depressive disorder, single episode, unspecified Status: Chronic Assessment and Plan: patient with history depression, on fluoxetine, will continue (5) Anxiety: Code(s): F41.9 - Anxiety disorder, unspecified Status: Chronic Assessment and Plan: Monitor and treat as needed (6) DVT prophylaxis: Code(s): Z29.9 - Encounter for prophylactic measures, unspecified Status: Acute Assessment and Plan: heparin SQ (7) Essential hypertension: Code(s): I10 - Essential (primary) hypertension Status: Acute Assessment and Plan: patient has history of essential hypertension, blood pressures are elevated, will add amlodipine which is her home medication Additional Plan Discussed with patient updated with her condition and plan of care. I answered all questions and updated her with her lab and radiology reports. Code status: Full code Critical care time spent: 32 minutes Due to a high probability of clinically significant, life threatening deterioration, the patient required my highest level of preparedness to intervene emergently and I personally spent this critical care time directly and personally managing the patient. This critical care time included obtaining a history; examining the patient; pulse oximetry; ordering and review of s
[2019-11-04] MEDS: FUROSEMIDE INJ 40 MG/4 ML VIAL IV PUSH (10:14)
--- NOTE | 2019-11-04 11:09 | PCDIET ---
ICU Rounding Note: Patient is eating fairly well on regular diet. Intakes averaged ~50% of meals yesterday. Patient only taking sips of Ensure Compact, so would discontinue due to reports of patient eating well today and not caring for supplement. Last recorded weight is 107.8kg which is increased. Bowel Motility: +BMs today, liquid. Labs Reviewed: Glu (106), BUN (18), Cr (1.1), Alb (3.2), CRP (23.9) Meds Noted: Combivent, Zithromax, Rocephin, NS at 50mL/hr Additional Notes: No reported skin breakdown. Recommend continuing regular diet at this time. Following daily in ICU rounds. Assessing/reassessing every 3 days.
[2019-11-04] MEDS: FAMOTIDINE 20 MG TABLET PO ×2 (13:18→20:29)
[2019-11-05] VITALS (13 sets, daily range): BP systolic 103–133; BP diastolic 60–97; PULSE 69–99; RESP 17–29; TEMP 36.4–37; O2SAT 93–100
[2019-11-05] MEDS: GUAIFENESIN/DEXTROMETHORPHAN 10 ML UDC PO ×3 (03:22→12:38)
[2019-11-05] MEDS: ACETAMINOPHEN 325 MG TABLET 650 MG PO (03:23)
[2019-11-05 05:18] LABS: Basophils Absolute Auto 0.1 K/mm3 (0.0-0.1); Basophils Percent Auto 0.6 % (0.2-1.2); Eosinophils Absolute Auto 0.1 K/mm3 (0-0.3); Eosinophils Percent Auto 1.6 % (0-4.4); Hematocrit 35.1 % (37.0-47.0); Hemoglobin 11.2 g/dL (12.0-15.0); Immature Granulocyte Absolute 0.58 K/mm3 (0.00-0.031); Immature Granulocyte Percent A 6.7 % (0-0.5); Lymphocytes Absolute Auto 1.83 K/mm3 (0.9-3.2); Mean Corpuscular HGB Conc 31.9 g/dl (32-36); Mean Corpuscular Volume 90.9 fl (80-100); Mean Platelet Volume 9.6 fl (7.4-10.4); Monocytes Absolute Auto 0.7 K/mm3 (0.1-0.6); Monocytes Percent Auto 8.5 % (2.6-8.5); Neutrophils Absolute Auto 5.4 K/mm3 (1.3-6.7); Neutrophils Percent Auto 61.6 % (45.5-73.1); Platelet Count Result 347 k/mm3 (150-375); Red Blood Count 3.86 M/mm3 (4.2-5.4); Red Cell Distribution Width 13.9 % (11.5-14.5); White Blood Count 8.7 K/mm3 (4.5-10.0)
[2019-11-05 05:19] LABS: Alveolar/Arterial O2 Gradient 610.3 mmHg; Base Excess ABG 0.7 mEq/l (+/-2.0); Carboxyhemoglobin 0.3 % THb (0-2.0); Fractional Inspired Oxygen 100 %; HCO3 ABG 25.3 mEq/l (22.0-26.0); Methemoglobin ABG 0.4 %THb (0-1.5); Oxygen Content ABG 16.1 %vol (16.0-22.0); Oxygen Saturation ABG 92.4 % (95.0-100.0); Oxyhemoglobin 90.6 % THb (90.0-100.0); PCO2 ABG 40.1 mmHg (35.0-45.0); PO2 ABG 62.6 mmHg (80.0-100.0); PO2 FiO2 Ratio Arterial Blood 0.63 %; Reduced Hemoglobin 8.7 %THb (0-5.0); Total Hemoglobin 12.6 g/dL (12.0-18.0); pH ABG 7.417 (7.350-7.450)
[2019-11-05 05:20] LABS: Device NON-REBREATHER MASK; Modified Allen's Test Pass; Site Drawn LEFT RADIAL
[2019-11-05 05:34] LABS: D Dimer 1.71 ug/mL (<0.48)
[2019-11-05 05:39] LABS: Alanine Aminotransferase 31 U/L (4-35); Albumin Level 3.1 g/dL (3.5-5.1); Alkaline Phosphatase 74 U/L (38-126); Aspartate Amino Transferase 42 U/L (14-36); Bilirubin,Total 0.6 mg/dL (0.2-1.3); Blood Urea Nitrogen 15 mg/dL (7-17); Calcium 8.2 mg/dL (8.4-10.2); Carbon Dioxide 29 mmol/L (22-30); Chloride 102 mmol/L (98-107); Estimated CRCL calculation 62 ml/min; Estimated Glomerular Filt Rate > 60; Glucose 106 mg/dL (65-105); Lactate Dehydrogenase 938 U/L (313-618); Potassium 3.9 mmol/L (3.4-5.0); Sodium 138 mmol/L (137-145)
[2019-11-05 05:45] LABS: Troponin I < 0.012 ng/mL (0.000-0.034)
[2019-11-05 05:48] LABS: CRP 23.1 mg/dL (<1.0)
--- NOTE | 2019-11-05 08:40 | WPDINTPN ---
Progress Note: A&P Assessment and Plan (1) Respiratory failure: Qualifiers: Chronicity: acute Respiratory failure complication: hypoxia Qualified Code(s): J96.01 - Acute respiratory failure with hypoxia Code(s): J96.90 - Respiratory failure, unspecified, unspecified whether with hypoxia or hypercapnia Status: Acute Assessment and Plan: patient presented with worsening respiratory failure along with cough, fevers, myalgias. She had lymphopenia, elevated CRP, elevated LDH, elevated creatinine, bilateral pneumonia chest x-ray - influenza was negative - Suspected to have COVID-19 and SARS-CoV-2 PCR positive - patient started on empiric azithromycin and ceftriaxone. I will continue at this time - I discussed pros and cons of treating with empiric hydroxychloroquine. Patient at this time does not want to try any unproven treatment. - patient she presented with acute kidney injury and received fluids. IV fluids discontinued yesterday. I will continue Lasix. - although patient is hypoxic she is not in any respiratory distress. She is saturating adequately on the non-rebreather mask at this time. I will continue close monitoring and continue Lasix. Obviously if she worsens, then she will need to be intubated and placed on invasive mechanical ventilation. Patient is agreeable for that if need arises - Patient is in Airborne, Droplet and Contact Isolation - Follow Troponin, LDH, D-Dimer, CRP, Procal, Ferritin periodically (2) Bilateral pneumonia: Qualifiers: Lung location: unspecified part of lung Pneumonia type: due to unspecified organism Qualified Code(s): J18.9 - Pneumonia, unspecified organism Code(s): J18.9 - Pneumonia, unspecified organism Status: Acute Assessment and Plan: patient currently on high flow nasal cannula, will maintain O2 sats greater than 92% - continue antibiotics as above - Robitussin p.r.n. for cough along with benzocaine lozenges - Combivent p.r.n. - blood cultures, urine cultures and sputum cultures are negative so far (3) Acute kidney injury: Code(s): N17.9 - Acute kidney failure, unspecified Status: Acute Assessment and Plan: patient with acute kidney injury with elevated creatinine of 3.8 on admission. this could be related to diuretic use, dehydration, hypovolemia, infection - Patient was gently hydrated with improvement in creatinine to 1.0 this morning. - Continue monitor urine output, electrolytes and renal function - continue Lasix at this time due to worsening hypoxia to bring intake and output balance to even. (4) Depression: Qualifiers: Depression Type: unspecified Qualified Code(s): F32.9 - Major depressive disorder, single episode, unspecified Code(s): F32.9 - Major depressive disorder, single episode, unspecified Status: Chronic Assessment and Plan: patient with history depression, on fluoxetine, will continue (5) Anxiety: Code(s): F41.9 - Anxiety disorder, unspecified Status: Chronic Assessment and Plan: Monitor and treat as needed (6) DVT prophylaxis: Code(s): Z29.9 - Encounter for prophylactic measures, unspecified Status: Acute Assessment and Plan: heparin SQ will switch to Lovenox q.day (7) Essential hypertension: Code(s): I10 - Essential (primary) hypertension Status: Acute Assessment and Plan: monitor and treat as needed amlodipine was discontinued because of soft blood pressure (8) Diastolic CHF: Code(s): I50.30 - Unspecified diastolic (congestive) heart failure Status: Acute Assessment and Plan: ECHO 11/03 1. Normal left ventricular size and global function with no focal wall motion abnormalities. Mild concentric left ventricular hypertrophy. Borderline criteria for diastolic dysfunction. Measured ejection fraction 64%, visual estimate 60-65%. 2. Left atrial
--- NOTE | 2019-11-05 08:55 | PM.IMPN ---
Progress Note: A&P Assessment and Plan (1) Respiratory failure: Qualifiers: Chronicity: acute Respiratory failure complication: hypoxia Qualified Code(s): J96.01 - Acute respiratory failure with hypoxia Code(s): J96.90 - Respiratory failure, unspecified, unspecified whether with hypoxia or hypercapnia Status: Acute Assessment and Plan: The patient's O2 requirement worsened yesterday and now on 15L. The patient is a full code. Pt has not required any vasopressors. She remains on IV abx. COVID testing positive. Continue to wean O2 as tolerated. Discussed with airport ramp attendant. He offered hydroxychloroquine but patient declined at this time. (2) COVID-19: Code(s): U07.1 - COVID-19 Status: Acute Assessment and Plan: DDimer 1.71. LDH and CRP trending down. Wean O2 as toelrated. As above. (3) Bilateral pneumonia: Qualifiers: Lung location: unspecified part of lung Pneumonia type: due to unspecified organism Qualified Code(s): J18.9 - Pneumonia, unspecified organism Code(s): J18.9 - Pneumonia, unspecified organism Status: Acute Assessment and Plan: CXR on admission showing bilateral airspace disease. Patient still with fever intermittently. The patient currently on Zithromax and Rocephin. Combivent available as needed. Sputum and urine cx negative. BCx NGTD. Wean O2 as tolerated. (4) Acute kidney injury: Code(s): N17.9 - Acute kidney failure, unspecified Status: Acute Assessment and Plan: Cr 3.8 on admission. Pt seen by nephrology. ARF secondary to dehydration +/- ATN. Renal US shows 2.9 cm left renal cyst otherwise normal. Cr trended downward with IVF. IVF have been stopped and Lasix IV given intermittently. Cr better at 1.0 today. Continue to monitor with the Lasix. (5) Elevated transaminase level: Code(s): R74.0 - Nonspecific elevation of levels of transaminase and lactic acid dehydrogenase [LDH] Status: Acute Assessment and Plan: AST and ALT elevated on admission to 61 and 42 respectfully. Levels checked periodically and have improved. Suspect related to the infectious etiology as above. Continue to monitor periodically. (6) HTN (hypertension): Qualifiers: Hypertension type: essential hypertension Qualified Code(s): I10 - Essential (primary) hypertension Code(s): I10 - Essential (primary) hypertension Status: Acute Assessment and Plan: Blood pressure dropped to 79/52 on admission. Central line was placed but patient has not required norepinephrine. BP has improved and Norvasc was resumed but then stopped due to soft BP. BP reviewed on 11/05/19 and remains well controlled. Continue to monitor. (7) Depression: Qualifiers: Depression Type: unspecified Qualified Code(s): F32.9 - Major depressive disorder, single episode, unspecified Code(s): F32.9 - Major depressive disorder, single episode, unspecified Status: Chronic Assessment and Plan: Mood stable. Continue fluoxetine. (8) DVT prophylaxis: Code(s): Z29.9 - Encounter for prophylactic measures, unspecified Status: Acute Assessment and Plan: Lovenox Subjective Date/time seen: 11/05/19 08:55 Interval history: 49yo female here for acute respiratory failure from pneumonia. Patient required increasing supplemental oxygen yesterday and overnight and now on 15L NRB. No CP or abd pain. No n/v. no diarrhea. SOB persistent and worse with minimal activity. +cough. UOP decreased overnight. Exam Narrative: Exam Narrative: tm 100.6 97.6 110/71 71 28 98% 15L Gen - appears comfortable at rest but becomes tachypneic with minimal exertion; develops conversational dyspnea Chest - fine inspir crackles CV - RRR S1/S2. Telemetry showing episode of atrial tach Abd - soft, NT/ND, +BS -Soriano catheter secured draining jeanie
[2019-11-05] MEDS: FUROSEMIDE INJ 40 MG/4 ML VIAL IV PUSH (09:19)
[2019-11-05] MEDS: FLUOXETINE HCL 20 MG CAP PO (09:19)
[2019-11-05] MEDS: HEPARIN SODIUM 5,000 UNITS/ML VIAL 5000 UNITS SUB-Q (09:19)
[2019-11-05] MEDS: FAMOTIDINE 20 MG TABLET PO ×2 (09:19→20:54)
--- NOTE | 2019-11-05 10:55 | PCDIET ---
ICU Rounding Note: Pt current nutrition is regular diet. Nutrition recommendation: No new recommendations at this time. Last recorded weight is 90.3 kg. Bowel Motility: BM 11/03 Labs Reviewed:Na 138, K 3.9, Glu 106 Ca 8.2 Meds Noted:Pecid started Additional Notes: Paient positive for COVID19, currently on high flow O2, not on pressers, with adequate I&O's / urine output, no edema noted. Pt eating 25-80% of meals with most meals being 50% or greater. No current nutrition concerns. Following daily in ICU rounds. Assessing/reassessing q 5 days.
[2019-11-05] MEDS: ENOXAPARIN 40 MG/0.4 ML SYRINGE SUB-Q (20:54)
[2019-11-06] VITALS (14 sets, daily range): BP systolic 104–140; BP diastolic 63–87; PULSE 66–92; RESP 16–36; TEMP 36.6–37; O2SAT 90–100
[2019-11-06] MEDS: ALTEPLASE 2 MG VIAL (CATHFLO) IV PUSH ×2 (00:16→00:20)
[2019-11-06 04:53] LABS: Alveolar/Arterial O2 Gradient 440.4 mmHg; Base Excess ABG 3.8 mEq/l (+/-2.0); Carboxyhemoglobin 0.3 % THb (0-2.0); Fractional Inspired Oxygen 80 %; HCO3 ABG 29.1 mEq/l (22.0-26.0); Methemoglobin ABG 0.5 %THb (0-1.5); Oxygen Content ABG 20.8 %vol (16.0-22.0); Oxygen Saturation ABG 96.1 % (95.0-100.0); Oxyhemoglobin 94.2 % THb (90.0-100.0); PO2 ABG 81.7 mmHg (80.0-100.0); PO2 FiO2 Ratio Arterial Blood 1.02 %; Total Hemoglobin 15.7 g/dL (12.0-18.0); pH ABG 7.419 (7.350-7.450)
[2019-11-06 04:55] LABS: Modified Allen's Test Pass; Site Drawn LEFT RADIAL
[2019-11-06 04:56] LABS: Device NON-REBREATHER MASK
[2019-11-06 05:26] LABS: Basophils Absolute Auto 0.1 K/mm3 (0.0-0.1); Basophils Percent Auto 0.9 % (0.2-1.2); Eosinophils Absolute Auto 0.2 K/mm3 (0-0.3); Eosinophils Percent Auto 2.3 % (0-4.4); Hemoglobin 11.2 g/dL (12.0-15.0); Immature Granulocyte Absolute 0.75 K/mm3 (0.00-0.031); Immature Granulocyte Percent A 8.3 % (0-0.5); Lymphocytes Absolute Auto 1.93 K/mm3 (0.9-3.2); Lymphocytes Percent Auto 21.3 % (18.3-44.2); Mean Corpuscular Volume 90.7 fl (80-100); Mean Platelet Volume 9.5 fl (7.4-10.4); Monocytes Absolute Auto 0.9 K/mm3 (0.1-0.6); Monocytes Percent Auto 9.8 % (2.6-8.5); Neutrophils Absolute Auto 5.2 K/mm3 (1.3-6.7); Neutrophils Percent Auto 57.4 % (45.5-73.1); Platelet Count Result 368 k/mm3 (150-375); Red Blood Count 3.86 M/mm3 (4.2-5.4); Red Cell Distribution Width 13.7 % (11.5-14.5); White Blood Count 9.1 K/mm3 (4.5-10.0)
[2019-11-06 05:40] LABS: Alanine Aminotransferase 39 U/L (4-35); Albumin Level 3.2 g/dL (3.5-5.1); Alkaline Phosphatase 82 U/L (38-126); Aspartate Amino Transferase 50 U/L (14-36); Bilirubin,Total 0.5 mg/dL (0.2-1.3); Blood Urea Nitrogen 16 mg/dL (7-17); Calcium 8.1 mg/dL (8.4-10.2); Carbon Dioxide 30 mmol/L (22-30); Chloride 100 mmol/L (98-107); Estimated CRCL calculation 66 ml/min; Estimated Glomerular Filt Rate > 60; Glucose 108 mg/dL (65-105); Sodium 137 mmol/L (137-145)
[2019-11-06 05:47] LABS: Troponin I < 0.012 ng/mL (0.000-0.034)
[2019-11-06 05:50] LABS: D Dimer 6.34 ug/mL (<0.48)
--- NOTE | 2019-11-06 08:41 | WPDINTPN ---
Progress Note: A&P Assessment and Plan (1) Respiratory failure: Qualifiers: Chronicity: acute Respiratory failure complication: hypoxia Qualified Code(s): J96.01 - Acute respiratory failure with hypoxia Code(s): J96.90 - Respiratory failure, unspecified, unspecified whether with hypoxia or hypercapnia Status: Acute Assessment and Plan: patient presented with worsening respiratory failure along with cough, fevers, myalgias. She had lymphopenia, elevated CRP, elevated LDH, elevated creatinine, bilateral pneumonia chest x-ray - influenza was negative - COVID-19 and SARS-CoV-2 PCR positive - patient started on empiric azithromycin and ceftriaxone. I will continue at this time - Dr. Mcintyre discussed pros and cons of treating with empiric hydroxychloroquine. Patient at this time does not want to try any unproven treatment. - patient currently on high-flow nasal cannula and 100% non-rebreather, O2 sats have been 98-100% except for which she is eating or having a bout of cough she desaturates. - She does not seem to be any respiratory distress at this time, will continue supplemental oxygen and if she worsens and requires to be intubated and placed on mechanical ventilation, Patient is agreeable for that if need arises - Patient is on Airborne, Droplet and Contact Isolation - Follow Troponin, LDH, D-Dimer, CRP, Procal, Ferritin periodically - will give 1 dose of Bumex (2) Bilateral pneumonia: Qualifiers: Lung location: unspecified part of lung Pneumonia type: due to unspecified organism Qualified Code(s): J18.9 - Pneumonia, unspecified organism Code(s): J18.9 - Pneumonia, unspecified organism Status: Acute Assessment and Plan: patient currently on high flow nasal cannula, will maintain O2 sats greater than 92% - continue antibiotics as above - Robitussin p.r.n. for cough along with benzocaine lozenges - Combivent p.r.n. - blood cultures, urine cultures and sputum cultures are negative so far (3) Acute kidney injury: Code(s): N17.9 - Acute kidney failure, unspecified Status: Acute Assessment and Plan: patient with acute kidney injury with elevated creatinine of 3.8 on admission. this could be related to diuretic use, dehydration, hypovolemia, infection - Patient was gently hydrated with improvement in creatinine to 1.0 this morning. off IV fluids - Continue monitor urine output, electrolytes and renal function - low urine output, will try Bumex (4) Depression: Qualifiers: Depression Type: unspecified Qualified Code(s): F32.9 - Major depressive disorder, single episode, unspecified Code(s): F32.9 - Major depressive disorder, single episode, unspecified Status: Chronic Assessment and Plan: patient with history depression, on fluoxetine, will continue (5) Anxiety: Code(s): F41.9 - Anxiety disorder, unspecified Status: Chronic Assessment and Plan: Monitor and treat as needed (6) DVT prophylaxis: Code(s): Z29.9 - Encounter for prophylactic measures, unspecified Status: Acute Assessment and Plan: Lovenox q.day (7) Essential hypertension: Code(s): I10 - Essential (primary) hypertension Status: Acute Assessment and Plan: monitor and treat as needed amlodipine was discontinued because of soft blood pressure (8) Diastolic CHF: Qualifiers: Heart failure chronicity: unspecified Qualified Code(s): I50.30 - Unspecified diastolic (congestive) heart failure Code(s): I50.30 - Unspecified diastolic (congestive) heart failure Status: Acute Assessment and Plan: ECHO 11/03 1. Normal left ventricular size and global function with no focal wall motion abnormalities. Mild concentric left ventricular hypertrophy. Borderline criteria for diastolic dysfunction. Measured ejection fraction 64%, visual estimate 60-65%. 2. Lef
[2019-11-06] MEDS: FLUOXETINE HCL 20 MG CAP PO (09:26)
[2019-11-06] MEDS: FAMOTIDINE 20 MG TABLET PO ×2 (09:26→19:44)
[2019-11-06] MEDS: BUMETANIDE INJ 1 MG/4 ML VIAL IV PUSH (09:26)
--- NOTE | 2019-11-06 11:25 | PCDIET ---
Nutrition Follow-Up Complete: Nutrition Diagnosis: Involuntary weight loss related to medical issues as evidenced by reported 2-13# weight loss without trying. Nutrition Goal: Patient to consume 75% of meals or greater. Goal in progress. Patient consuming 50-75% of most meals on regular diet which is appropriate. Ensure Compact re-ordered which is acceptable, though patient not taking entirely. Last recorded weight is 99.3 kg which is increased. +I/O and decreased urine output noted. Bowel Motility: BM X 1 on 11/04/19. Labs Reviewed: Glu (108), Alb (3.2), Aerli Ca (8.74) Meds Noted: Combivent, Pepcid, Zithromax, Prozac, Rocephin, Bumex Additional Notes: No documented skin breakdown. Will continue to monitor with same goal. Nutrition Monitoring and Evaluation: Follow up every 5 days.
--- NOTE | 2019-11-06 15:58 | PM.IMPN ---
Progress Note: A&P Assessment and Plan (1) Respiratory failure: Qualifiers: Chronicity: acute Respiratory failure complication: hypoxia Qualified Code(s): J96.01 - Acute respiratory failure with hypoxia Code(s): J96.90 - Respiratory failure, unspecified, unspecified whether with hypoxia or hypercapnia Status: Acute Assessment and Plan: The patient's O2 requirement worsening and now on NC and NRB mask. The patient is a full code. Pt has not required any vasopressors. She remains on IV abx. COVID testing positive. Invensivist offered hydroxychloroquine but patient declined at this time. Continue to wean O2 as tolerated. Discussed with interlocking installer. (2) COVID-19: Code(s): U07.1 - COVID-19 Status: Acute Assessment and Plan: DDimer 1.71 but now 6.34. LDH 1072 on admission but trending down. CRP 26.2 on admission but also trending down. Wean O2 as tolerated. As above. (3) Bilateral pneumonia: Qualifiers: Lung location: unspecified part of lung Pneumonia type: due to unspecified organism Qualified Code(s): J18.9 - Pneumonia, unspecified organism Code(s): J18.9 - Pneumonia, unspecified organism Status: Acute Assessment and Plan: CXR on admission showing bilateral airspace disease. Fever ws intermittent but no fever past 48 hours now. The patient currently on Zithromax and Rocephin Day 6. Combivent available as needed but not using much. Sputum and urine cx negative. BCx NGTD. Wean O2 as tolerated. (4) Acute kidney injury: Code(s): N17.9 - Acute kidney failure, unspecified Status: Acute Assessment and Plan: Cr 3.8 on admission. Pt seen by nephrology. ARF secondary to dehydration +/- ATN. Renal US shows 2.9 cm left renal cyst otherwise normal. Cr trended downward with IVF. IVF have been stopped and Lasix IV given intermittently. Cr stable at 1.0 today. Bumex x1 given today. Continue to monitor. (5) Elevated transaminase level: Code(s): R74.0 - Nonspecific elevation of levels of transaminase and lactic acid dehydrogenase [LDH] Status: Acute Assessment and Plan: AST and ALT elevated on admission to 61 and 42 respectfully. Levels checked periodically and have waxed and waned but never above 100. Suspect related to the infectious etiology as above. Continue to monitor periodically. (6) HTN (hypertension): Qualifiers: Hypertension type: essential hypertension Qualified Code(s): I10 - Essential (primary) hypertension Code(s): I10 - Essential (primary) hypertension Status: Acute Assessment and Plan: Blood pressure dropped to 79/52 on admission. Central line was placed but patient has not required norepinephrine. BP has improved and Norvasc was resumed briefly but then stopped. BP reviewed on 11/06/19 and remains well controlled. Continue to monitor. (7) Depression: Qualifiers: Depression Type: unspecified Qualified Code(s): F32.9 - Major depressive disorder, single episode, unspecified Code(s): F32.9 - Major depressive disorder, single episode, unspecified Status: Chronic Assessment and Plan: Mood stable. Continue fluoxetine. (8) DVT prophylaxis: Code(s): Z29.9 - Encounter for prophylactic measures, unspecified Status: Acute Assessment and Plan: Lovenox Subjective Date/time seen: 11/06/19 15:58 Interval history: 49yo female here for acute respiratory failure from pneumonia. Patient requiring NC and NRB mask for her hypoxia. She feels SOB with exertion. She was up to the chair yesterday but this wore her out. She is eating okay. No n/v. No diarrhea. Had chest pain yesterday but not today. Exam Narrative: Exam Narrative: AF 111/66 83% on NC (off the NRB mask) so mask replaced. Gen - appears more comfortable. Chest - distant but mostly clear BS, less tachypne
[2019-11-06] MEDS: GUAIFENESIN/DEXTROMETHORPHAN 10 ML UDC PO ×2 (15:59→19:44)
[2019-11-06] MEDS: ENOXAPARIN 40 MG/0.4 ML SYRINGE SUB-Q (19:44)
[2019-11-07] VITALS (15 sets, daily range): BP systolic 93–132; BP diastolic 64–92; PULSE 70–86; RESP 13–30; TEMP 36.4–37.5; O2SAT 83–99
[2019-11-07] MEDS: ACETAMINOPHEN 325 MG TABLET 650 MG PO ×3 (00:12→20:56)
[2019-11-07 04:23] LABS: Alveolar/Arterial O2 Gradient 452.6 mmHg; Base Excess ABG 3.8 mEq/l (+/-2.0); Carboxyhemoglobin 0.3 % THb (0-2.0); Fractional Inspired Oxygen 80 %; HCO3 ABG 29.3 mEq/l (22.0-26.0); Methemoglobin ABG 0.6 %THb (0-1.5); Oxygen Saturation ABG 93.9 % (95.0-100.0); Oxyhemoglobin 92.4 % THb (90.0-100.0); PCO2 ABG 46.7 mmHg (35.0-45.0); PO2 ABG 68.8 mmHg (80.0-100.0); PO2 FiO2 Ratio Arterial Blood 0.86 %; Reduced Hemoglobin 6.7 %THb (0-5.0); Total Hemoglobin 18.5 g/dL (12.0-18.0); pH ABG 7.416 (7.350-7.450)
[2019-11-07 04:24] LABS: Device NON-REBREATHER MASK; Modified Allen's Test Pass; Site Drawn LEFT RADIAL
[2019-11-07 06:06] LABS: Basophils Absolute Auto 0.1 K/mm3 (0.0-0.1); Basophils Percent Auto 0.9 % (0.2-1.2); Eosinophils Absolute Auto 0.2 K/mm3 (0-0.3); Eosinophils Percent Auto 2.6 % (0-4.4); Hematocrit 34.7 % (37.0-47.0); Hemoglobin 11.3 g/dL (12.0-15.0); Immature Granulocyte Absolute 0.85 K/mm3 (0.00-0.031); Immature Granulocyte Percent A 9.1 % (0-0.5); Lymphocytes Absolute Auto 1.91 K/mm3 (0.9-3.2); Lymphocytes Percent Auto 20.5 % (18.3-44.2); Mean Corpuscular HGB Conc 32.6 g/dl (32-36); Mean Corpuscular Hemoglobin 29.5 pg (26-34); Mean Corpuscular Volume 90.6 fl (80-100); Mean Platelet Volume 9.1 fl (7.4-10.4); Monocytes Percent Auto 10.9 % (2.6-8.5); Neutrophils Absolute Auto 5.2 K/mm3 (1.3-6.7); Platelet Count Result 416 k/mm3 (150-375); Red Blood Count 3.83 M/mm3 (4.2-5.4); Red Cell Distribution Width 13.5 % (11.5-14.5); White Blood Count 9.3 K/mm3 (4.5-10.0)
[2019-11-07 06:16] LABS: D Dimer 1.59 ug/mL (<0.48)
[2019-11-07 06:26] LABS: Alanine Aminotransferase 66 U/L (4-35); Albumin Level 3.3 g/dL (3.5-5.1); Alkaline Phosphatase 88 U/L (38-126); Aspartate Amino Transferase 71 U/L (14-36); Bilirubin,Total 0.5 mg/dL (0.2-1.3); Blood Urea Nitrogen 20 mg/dL (7-17); Calcium 8.8 mg/dL (8.4-10.2); Carbon Dioxide 35 mmol/L (22-30); Chloride 99 mmol/L (98-107); Estimated CRCL calculation 60 ml/min; Estimated Glomerular Filt Rate > 60; Glucose 109 mg/dL (65-105); Sodium 138 mmol/L (137-145)
[2019-11-07 06:36] LABS: Troponin I < 0.012 ng/mL (0.000-0.034)
[2019-11-07 07:04] LABS: Lactate Dehydrogenase 942 U/L (313-618)
[2019-11-07 07:11] LABS: CRP 14.2 mg/dL (<1.0)
--- NOTE | 2019-11-07 07:35 | PM.IMPN ---
Progress Note: A&P Assessment and Plan (1) Respiratory failure: Qualifiers: Chronicity: acute Respiratory failure complication: hypoxia Qualified Code(s): J96.01 - Acute respiratory failure with hypoxia Code(s): J96.90 - Respiratory failure, unspecified, unspecified whether with hypoxia or hypercapnia Status: Acute Assessment and Plan: The patient's O2 requirement has worsened and now on NC and NRB mask. The patient is a full code. Pt has not required any vasopressors. She remains on IV abx. COVID testing positive. Invensivist offered hydroxychloroquine but patient declined at this time. She took her NRB off this morning to talk and able to have sats in 88-92% range while in the room. She was instructed to keep NRB off and will monitor. Continue to wean O2 as tolerated. Discussed with waistline joiner overlock. (2) COVID-19: Code(s): U07.1 - COVID-19 Status: Acute Assessment and Plan: DDimer 1.71, up to 6.34 now down to 1.6. LDH 1072 on admission but trending down (stable at 940 today). CRP 26.2 on admission but also trending down to 14 today. Wean O2 as tolerated. Continue supportive care. As above. (3) Bilateral pneumonia: Qualifiers: Lung location: unspecified part of lung Pneumonia type: due to unspecified organism Qualified Code(s): J18.9 - Pneumonia, unspecified organism Code(s): J18.9 - Pneumonia, unspecified organism Status: Acute Assessment and Plan: CXR on admission showing bilateral airspace disease. Fever was intermittent but no fever since 11/04/19. The patient currently on Zithromax and Rocephin Day 7. Combivent available as needed but not using much. Sputum and urine cx negative. BCx NGTD. Wean O2 as tolerated. (4) Acute kidney injury: Code(s): N17.9 - Acute kidney failure, unspecified Status: Acute Assessment and Plan: Cr 3.8 on admission. Pt seen by nephrology. ARF secondary to dehydration +/- ATN. Renal US shows 2.9 cm left renal cyst otherwise normal. Cr trended downward with IVF. IVF have been stopped and Lasix/Bumex IV given intermittently. Cr stable at 1.1 today. Continue to monitor. (5) Elevated transaminase level: Code(s): R74.0 - Nonspecific elevation of levels of transaminase and lactic acid dehydrogenase [LDH] Status: Acute Assessment and Plan: AST and ALT elevated on admission to 61 and 42 respectfully. Levels checked periodically and have waxed and waned but never above 100. Suspect related to the infectious etiology as above. Continue to monitor periodically. (6) HTN (hypertension): Qualifiers: Hypertension type: essential hypertension Qualified Code(s): I10 - Essential (primary) hypertension Code(s): I10 - Essential (primary) hypertension Status: Acute Assessment and Plan: Blood pressure dropped to 79/52 on admission. Central line was placed but patient has not required norepinephrine. BP has improved and Norvasc was resumed briefly but then stopped. BP reviewed on 11/07/19 and remains well controlled. Continue to monitor. Consider removing central line (7) Depression: Qualifiers: Depression Type: unspecified Qualified Code(s): F32.9 - Major depressive disorder, single episode, unspecified Code(s): F32.9 - Major depressive disorder, single episode, unspecified Status: Chronic Assessment and Plan: Mood poor today. Encouraged her an explained about the improvement in her CXR. Continue fluoxetine. (8) DVT prophylaxis: Code(s): Z29.9 - Encounter for prophylactic measures, unspecified Status: Acute Assessment and Plan: Lovenox Subjective Date/time seen: 11/07/19 07:35 Interval history: 49yo female here for acute respiratory failure from pneumonia. Slept poorly last night. Was not out of bed yesterday. She denies nausea or vomiting. Diarrhea. Coug
[2019-11-07] MEDS: FAMOTIDINE 20 MG TABLET PO ×2 (08:19→20:56)
[2019-11-07] MEDS: FLUOXETINE HCL 20 MG CAP PO (08:19)
[2019-11-07] MEDS: GUAIFENESIN/DEXTROMETHORPHAN 10 ML UDC PO ×2 (08:19→12:09)
--- NOTE | 2019-11-07 12:05 | WPDINTPN ---
Progress Note: A&P Assessment and Plan (1) Respiratory failure: Qualifiers: Chronicity: acute Respiratory failure complication: hypoxia Qualified Code(s): J96.01 - Acute respiratory failure with hypoxia Code(s): J96.90 - Respiratory failure, unspecified, unspecified whether with hypoxia or hypercapnia Status: Acute Assessment and Plan: patient presented with worsening respiratory failure along with cough, fevers, myalgias. She had lymphopenia, elevated CRP, elevated LDH, elevated creatinine, bilateral pneumonia chest x-ray - influenza was negative - COVID-19 and SARS-CoV-2 PCR positive - patient started on empiric azithromycin and ceftriaxone. I will continue at this time - Dr. Mcintyre discussed pros and cons of treating with empiric hydroxychloroquine. Patient at this time does not want to try any unproven treatment. - patient currently on high-flow nasal cannula and 100% non-rebreather, O2 sats have been 98-100% except for which she is eating or having a bout of cough she desaturates. - She does not seem to be any respiratory distress at this time, will continue supplemental oxygen and if she worsens and requires to be intubated and placed on mechanical ventilation, Patient is agreeable for that if need arises - Patient is on Airborne, Droplet and Contact Isolation - Follow Troponin, LDH, D-Dimer, CRP, Procal, Ferritin periodically - patient diuresed well with Bumex yesterday (2) Bilateral pneumonia: Qualifiers: Lung location: unspecified part of lung Pneumonia type: due to unspecified organism Qualified Code(s): J18.9 - Pneumonia, unspecified organism Code(s): J18.9 - Pneumonia, unspecified organism Status: Acute Assessment and Plan: patient currently on high flow nasal cannula, wean FiO2 to maintain O2 sats greater than 92%, - continue antibiotics as above - Robitussin p.r.n. for cough along with benzocaine lozenges - Combivent p.r.n. - blood cultures, urine cultures and sputum cultures are negative so far (3) Acute kidney injury: Code(s): N17.9 - Acute kidney failure, unspecified Status: Acute Assessment and Plan: patient with acute kidney injury with elevated creatinine of 3.8 on admission. this could be related to diuretic use, dehydration, hypovolemia, infection - Patient was gently hydrated with improvement in creatinine to 1.1 this morning. off IV fluids - Continue monitor urine output, electrolytes and renal function - urine output which improved with diuretic (4) Depression: Qualifiers: Depression Type: unspecified Qualified Code(s): F32.9 - Major depressive disorder, single episode, unspecified Code(s): F32.9 - Major depressive disorder, single episode, unspecified Status: Chronic Assessment and Plan: patient with history depression, on fluoxetine, will continue (5) Anxiety: Code(s): F41.9 - Anxiety disorder, unspecified Status: Chronic Assessment and Plan: Monitor and treat as needed (6) DVT prophylaxis: Code(s): Z29.9 - Encounter for prophylactic measures, unspecified Status: Acute Assessment and Plan: Lovenox q.day (7) Essential hypertension: Code(s): I10 - Essential (primary) hypertension Status: Acute Assessment and Plan: monitor and treat as needed amlodipine was discontinued because of soft blood pressure (8) Diastolic CHF: Qualifiers: Heart failure chronicity: unspecified Qualified Code(s): I50.30 - Unspecified diastolic (congestive) heart failure Code(s): I50.30 - Unspecified diastolic (congestive) heart failure Status: Acute Assessment and Plan: ECHO 11/03. Normal left ventricular size and global function with no focal wall motion abnormalities. Mild concentric left ventricular hypertrophy. Borderline criteria for diastolic dysfunction. Measured ejection fraction
[2019-11-07] MEDS: ENOXAPARIN 40 MG/0.4 ML SYRINGE SUB-Q (20:56)
[2019-11-08] VITALS (16 sets, daily range): BP systolic 107–123; BP diastolic 65–79; PULSE 66–90; RESP 11–23; TEMP 36.5–37.2; O2SAT 64–97
[2019-11-08 04:18] LABS: Alveolar/Arterial O2 Gradient 604.3 mmHg; Base Excess ABG 2.1 mEq/l (+/-2.0); Carboxyhemoglobin 0.3 % THb (0-2.0); Fractional Inspired Oxygen 100 %; Methemoglobin ABG 0.5 %THb (0-1.5); Modified Allen's Test Pass; Oxygen Content ABG 20.4 %vol (16.0-22.0); Oxygen Saturation ABG 93.3 % (95.0-100.0); Oxyhemoglobin 91.3 % THb (90.0-100.0); PCO2 ABG 42.8 mmHg (35.0-45.0); PO2 ABG 65.9 mmHg (80.0-100.0); PO2 FiO2 Ratio Arterial Blood 0.66 %; Reduced Hemoglobin 7.9 %THb (0-5.0); Site Drawn RIGHT RADIAL; Total Hemoglobin 15.9 g/dL (12.0-18.0); pH ABG 7.417 (7.350-7.450)
[2019-11-08 04:19] LABS: Device NON-REBREATHER MASK
[2019-11-08 05:03] LABS: Basophils Absolute Auto 0.1 K/mm3 (0.0-0.1); Basophils Percent Auto 0.9 % (0.2-1.2); Eosinophils Absolute Auto 0.3 K/mm3 (0-0.3); Eosinophils Percent Auto 3.2 % (0-4.4); Hematocrit 36.5 % (37.0-47.0); Hemoglobin 11.6 g/dL (12.0-15.0); Immature Granulocyte Percent A 10.5 % (0-0.5); Lymphocytes Absolute Auto 2.08 K/mm3 (0.9-3.2); Lymphocytes Percent Auto 24.3 % (18.3-44.2); Mean Corpuscular HGB Conc 31.8 g/dl (32-36); Mean Corpuscular Volume 91.3 fl (80-100); Mean Platelet Volume 9.3 fl (7.4-10.4); Monocytes Absolute Auto 0.9 K/mm3 (0.1-0.6); Monocytes Percent Auto 10.9 % (2.6-8.5); Neutrophils Absolute Auto 4.3 K/mm3 (1.3-6.7); Neutrophils Percent Auto 50.2 % (45.5-73.1); Platelet Count Result 434 k/mm3 (150-375); Red Cell Distribution Width 13.4 % (11.5-14.5); White Blood Count 8.6 K/mm3 (4.5-10.0)
[2019-11-08 05:27] LABS: Alanine Aminotransferase 85 U/L (4-35); Albumin Level 3.4 g/dL (3.5-5.1); Alkaline Phosphatase 96 U/L (38-126); Aspartate Amino Transferase 80 U/L (14-36); Bilirubin,Total 0.4 mg/dL (0.2-1.3); Blood Urea Nitrogen 16 mg/dL (7-17); Calcium 8.7 mg/dL (8.4-10.2); Carbon Dioxide 32 mmol/L (22-30); Chloride 99 mmol/L (98-107); Estimated CRCL calculation 68 ml/min; Estimated Glomerular Filt Rate > 60; Glucose 101 mg/dL (65-105); Potassium 4.1 mmol/L (3.4-5.0); Sodium 137 mmol/L (137-145)
[2019-11-08 05:39] LABS: Troponin I < 0.012 ng/mL (0.000-0.034)
[2019-11-08 05:50] LABS: D Dimer 1.19 ug/mL (<0.48)
[2019-11-08] MEDS: GUAIFENESIN/DEXTROMETHORPHAN 10 ML UDC PO ×4 (08:10→20:50)
[2019-11-08] MEDS: FLUOXETINE HCL 20 MG CAP PO (08:12)
[2019-11-08] MEDS: FAMOTIDINE 20 MG TABLET PO ×2 (08:12→20:50)
--- NOTE | 2019-11-08 09:54 | PM.IMPN ---
Progress Note: A&P Assessment and Plan (1) Respiratory failure: Qualifiers: Chronicity: acute Respiratory failure complication: hypoxia Qualified Code(s): J96.01 - Acute respiratory failure with hypoxia Code(s): J96.90 - Respiratory failure, unspecified, unspecified whether with hypoxia or hypercapnia Status: Acute Assessment and Plan: Persistent hypoxia with requiring HFNC and NRB mask last night. Currently just on HFNC. The patient is a full code. Pt has not required any vasopressors. She remains on IV abx. COVID positive. Invensivist offered hydroxychloroquine but patient declined. Continue to wean O2 as tolerated. Bumex x1 today (2) COVID-19: Code(s): U07.1 - COVID-19 Status: Acute Assessment and Plan: DDimer down to 1.2 today. LDH 1072 on admission but trending down (stable at 940 yesterday). CRP 26.2 on admission but also trending down to 14 yesterday. Wean O2 as tolerated. Continue supportive care. As above. (3) Bilateral pneumonia: Qualifiers: Lung location: unspecified part of lung Pneumonia type: due to unspecified organism Qualified Code(s): J18.9 - Pneumonia, unspecified organism Code(s): J18.9 - Pneumonia, unspecified organism Status: Acute Assessment and Plan: CXR on admission showing bilateral airspace disease. Fever was intermittent but no fever since 11/04/19. The patient currently on Zithromax and Rocephin Day 8. Combivent available as needed but not using much. Sputum and urine cx negative. CXR reviewed from today and showing some improvement overall. BCx NGTD. Wean O2 as tolerated. (4) Acute kidney injury: Code(s): N17.9 - Acute kidney failure, unspecified Status: Acute Assessment and Plan: Cr 3.8 on admission. Pt seen by nephrology. ARF secondary to dehydration +/- ATN. Renal US shows 2.9 cm left renal cyst otherwise normal. Cr trended downward with IVF. IVF have been stopped and Lasix/Bumex IV given intermittently. Cr stable at 1.0 today. Continue to monitor. Repeat Bumex today. (5) Elevated transaminase level: Code(s): R74.0 - Nonspecific elevation of levels of transaminase and lactic acid dehydrogenase [LDH] Status: Acute Assessment and Plan: AST and ALT elevated on admission to 61 and 42 respectfully. Levels checked periodically and have waxed and waned but never above 100. Suspect related to the infectious etiology as above. Continue to monitor periodically. (6) HTN (hypertension): Qualifiers: Hypertension type: essential hypertension Qualified Code(s): I10 - Essential (primary) hypertension Code(s): I10 - Essential (primary) hypertension Status: Acute Assessment and Plan: Blood pressure dropped to 79/52 on admission. Central line was placed but patient has not required norepinephrine. BP has improved and Norvasc was resumed briefly but then stopped. BP reviewed on 11/08/19 and remains well controlled. Continue to monitor. (7) Depression: Qualifiers: Depression Type: unspecified Qualified Code(s): F32.9 - Major depressive disorder, single episode, unspecified Code(s): F32.9 - Major depressive disorder, single episode, unspecified Status: Chronic Assessment and Plan: Mood still poor. Words of encouragement given. Continue fluoxetine. (8) DVT prophylaxis: Code(s): Z29.9 - Encounter for prophylactic measures, unspecified Status: Acute Assessment and Plan: Lovenox Subjective Date/time seen: 11/08/19 09:54 Interval history: 49yo female here for acute respiratory failure from pneumonia. No issues overnight. She did require the NRB mask overnight. When she did get up to the chair, she desat briefly but then improved. No CP or abd pain. Eating okay. no other complaints. Exam Narrative: Exam Narrative: AF 111/65 Gen - NARD sitting up
[2019-11-08] MEDS: SALINE 0.65% NAS SOLN 44 ML BTL 1 SPRAY NASAL (12:25)
[2019-11-08] MEDS: BUMETANIDE INJ 1 MG/4 ML VIAL IV PUSH ×2 (12:27→20:52)
[2019-11-08] MEDS: ENOXAPARIN 40 MG/0.4 ML SYRINGE SUB-Q (20:50)
[2019-11-08] MEDS: ACETAMINOPHEN 325 MG TABLET 650 MG PO (20:51)
[2019-11-09] VITALS (18 sets, daily range): BP systolic 103–120; BP diastolic 64–81; PULSE 64–88; RESP 17–28; TEMP 36.6–37.2; O2SAT 92–97
[2019-11-09 04:38] LABS: Basophils Absolute Auto 0.1 K/mm3 (0.0-0.1); Basophils Percent Auto 0.7 % (0.2-1.2); Eosinophils Absolute Auto 0.2 K/mm3 (0-0.3); Eosinophils Percent Auto 2.7 % (0-4.4); Hematocrit 35.5 % (37.0-47.0); Hemoglobin 11.5 g/dL (12.0-15.0); Immature Granulocyte Absolute 0.66 K/mm3 (0.00-0.031); Lymphocytes Absolute Auto 2.48 K/mm3 (0.9-3.2); Lymphocytes Percent Auto 30.2 % (18.3-44.2); Mean Corpuscular HGB Conc 32.4 g/dl (32-36); Mean Corpuscular Hemoglobin 29.3 pg (26-34); Mean Corpuscular Volume 90.6 fl (80-100); Mean Platelet Volume 9.1 fl (7.4-10.4); Monocytes Absolute Auto 0.9 K/mm3 (0.1-0.6); Monocytes Percent Auto 10.6 % (2.6-8.5); Neutrophils Absolute Auto 3.9 K/mm3 (1.3-6.7); Neutrophils Percent Auto 47.8 % (45.5-73.1); Platelet Count Result 498 k/mm3 (150-375); Red Blood Count 3.92 M/mm3 (4.2-5.4); Red Cell Distribution Width 13.2 % (11.5-14.5); White Blood Count 8.2 K/mm3 (4.5-10.0)
[2019-11-09 04:57] LABS: Alanine Aminotransferase 108 U/L (4-35); Albumin Level 3.4 g/dL (3.5-5.1); Alkaline Phosphatase 98 U/L (38-126); Aspartate Amino Transferase 91 U/L (14-36); Bilirubin,Total 0.4 mg/dL (0.2-1.3); Blood Urea Nitrogen 17 mg/dL (7-17); Calcium 8.7 mg/dL (8.4-10.2); Carbon Dioxide 34 mmol/L (22-30); Chloride 96 mmol/L (98-107); Estimated CRCL calculation 70 ml/min; Estimated Glomerular Filt Rate > 60; Glucose 100 mg/dL (65-105); Magnesium 1.7 mg/dL (1.6-2.3); Phosphorus 4.7 mg/dL (2.5-4.5); Potassium 3.8 mmol/L (3.4-5.0); Sodium 135 mmol/L (137-145)
[2019-11-09] MEDS: FLUOXETINE HCL 20 MG CAP PO (07:27)
[2019-11-09] MEDS: FAMOTIDINE 20 MG TABLET PO ×2 (07:27→20:34)
[2019-11-09] MEDS: ACETAMINOPHEN 325 MG TABLET 650 MG PO ×2 (07:32→20:34)
--- NOTE | 2019-11-09 13:21 | PM.IMPN ---
Progress Note: A&P Assessment and Plan (1) Respiratory failure: Qualifiers: Chronicity: acute Respiratory failure complication: hypoxia Qualified Code(s): J96.01 - Acute respiratory failure with hypoxia Code(s): J96.90 - Respiratory failure, unspecified, unspecified whether with hypoxia or hypercapnia Status: Acute Assessment and Plan: Persistent hypoxia but improved. Currently just on HFNC and able to wean to 10L. The patient is a full code. Pt has not required any vasopressors. She remains on IV abx. COVID positive. Invensivist offered hydroxychloroquine but patient declined. Continue to wean O2 as tolerated. (2) COVID-19: Code(s): U07.1 - COVID-19 Status: Acute Assessment and Plan: DDimer down to 1.2. LDH 1072 on admission but trending down (stable at 940). CRP 26.2 on admission but also trending down to 6 today. Wean O2 as tolerated. Continue supportive care. As above. Will hold off on repeating inflammatory markers unless she clinically changes. (3) Bilateral pneumonia: Qualifiers: Lung location: unspecified part of lung Pneumonia type: due to unspecified organism Qualified Code(s): J18.9 - Pneumonia, unspecified organism Code(s): J18.9 - Pneumonia, unspecified organism Status: Acute Assessment and Plan: CXR on admission showing bilateral airspace disease. Fever was intermittent but no fever since 11/04/19. The patient currently on Zithromax and Rocephin Day 9 of 14. Combivent available as needed but not using much. Sputum, Blood and urine cx negative. CXR reviewed from today and showing slight improvement despite the diuresis and decreased O2 requirement. Continue to wean O2 as tolerated. (4) Acute kidney injury: Code(s): N17.9 - Acute kidney failure, unspecified Status: Acute Assessment and Plan: Cr 3.8 on admission. Pt seen by nephrology. ARF secondary to dehydration +/- ATN. Renal US shows 2.9 cm left renal cyst otherwise normal. Cr trended downward with IVF. IVF have been stopped and Lasix/Bumex IV given intermittently. She recveived two doses of Bumex yesterday and Cr stable at 1.0 today. Continue to monitor. Repeat Bumex tomorrow if BP tolerates. (5) Elevated transaminase level: Code(s): R74.0 - Nonspecific elevation of levels of transaminase and lactic acid dehydrogenase [LDH] Status: Acute Assessment and Plan: AST and ALT elevated on admission to 61 and 42 respectfully. Levels checked periodically and have waxed and waned. Suspect related to the infectious etiology as above. Continue to monitor periodically. (6) HTN (hypertension): Qualifiers: Hypertension type: essential hypertension Qualified Code(s): I10 - Essential (primary) hypertension Code(s): I10 - Essential (primary) hypertension Status: Acute Assessment and Plan: Blood pressure dropped to 79/52 on admission. Central line was placed but patient has not required norepinephrine. BP has improved and Norvasc was resumed briefly but then stopped. Central line has been removed. BP reviewed on 11/09/19 and remains well controlled. Continue to monitor. (7) Depression: Qualifiers: Depression Type: unspecified Qualified Code(s): F32.9 - Major depressive disorder, single episode, unspecified Code(s): F32.9 - Major depressive disorder, single episode, unspecified Status: Chronic Assessment and Plan: Mood better today. Continue fluoxetine. (8) DVT prophylaxis: Code(s): Z29.9 - Encounter for prophylactic measures, unspecified Status: Acute Assessment and Plan: Lovenox Subjective Date/time seen: 11/09/19 13:21 Interval history: 49yo female here for acute respiratory failure from pneumonia. No issues overnight. She complains of chest pain since yesterday. Has not informed the staff. It is a 'pressure'
[2019-11-09] MEDS: GUAIFENESIN/DEXTROMETHORPHAN 10 ML UDC PO (20:34)
[2019-11-09] MEDS: ENOXAPARIN 40 MG/0.4 ML SYRINGE SUB-Q (20:34)
[2019-11-10] VITALS (15 sets, daily range): BP systolic 99–123; BP diastolic 64–84; PULSE 61–94; RESP 16–27; TEMP 36.3–36.9; O2SAT 92–99
[2019-11-10 05:51] LABS: Hematocrit 36.6 % (37.0-47.0); Hemoglobin 11.7 g/dL (12.0-15.0); Mean Corpuscular Hemoglobin 29.5 pg (26-34); Mean Corpuscular Volume 92.4 fl (80-100); Mean Platelet Volume 9.2 fl (7.4-10.4); Platelet Count Result 488 k/mm3 (150-375); Red Blood Count 3.96 M/mm3 (4.2-5.4); Red Cell Distribution Width 13.2 % (11.5-14.5); White Blood Count 6.9 K/mm3 (4.5-10.0)
[2019-11-10 06:05] LABS: Blood Urea Nitrogen 18 mg/dL (7-17); Calcium 8.7 mg/dL (8.4-10.2); Carbon Dioxide 31 mmol/L (22-30); Chloride 101 mmol/L (98-107); Estimated CRCL calculation 70 ml/min; Estimated Glomerular Filt Rate > 60; Glucose 94 mg/dL (65-105); Potassium 4.3 mmol/L (3.4-5.0); Sodium 138 mmol/L (137-145)
[2019-11-10] MEDS: FAMOTIDINE 20 MG TABLET PO ×2 (07:42→20:25)
[2019-11-10] MEDS: FLUOXETINE HCL 20 MG CAP PO (07:42)
--- NOTE | 2019-11-10 11:21 | PCOTNOTE ---
Therapy treatment plan and handouts given to nursing 11/09/19. Nursing to follow up with OT/PT with further questions or needs.
[2019-11-10] MEDS: ALUM/CAMP/MENTH/PHENOL/SALICY (CARMEX) 7.5 GM JAR 1 APPLIC TOPICAL (12:32)
--- NOTE | 2019-11-10 14:09 | PM.IMPN ---
Progress Note: A&P Assessment and Plan (1) Respiratory failure: Qualifiers: Chronicity: acute Respiratory failure complication: hypoxia Qualified Code(s): J96.01 - Acute respiratory failure with hypoxia Code(s): J96.90 - Respiratory failure, unspecified, unspecified whether with hypoxia or hypercapnia Status: Acute Assessment and Plan: Result of pneumonia due to COVID-19. Has now weaned down to 3 L oxygen. Continue treatment of pneumonia as noted below. Continue to wean oxygen as tolerated. Telemetry reviewed on 11/10/2019 with sinus rhythm. Will transfer to medical floor as stable. Continue isolation. Echocardiogram with EF 64% and mild pulmonary hypertension. (2) Bilateral pneumonia: Qualifiers: Lung location: unspecified part of lung Pneumonia type: due to unspecified organism Qualified Code(s): J18.9 - Pneumonia, unspecified organism Code(s): J18.9 - Pneumonia, unspecified organism Status: Acute Assessment and Plan: Imaging on admission with bilateral airspace disease. Last follow-up chest x-ray on 11/09/2019 with diffuse lung disease still present but slight improvement. Weaning down on oxygen as noted above. Continue IV azithromycin and ceftriaxone currently at Day #10/14. Continue Combivent as needed. Sputum, blood and urine cultures all negative. (3) COVID-19: Code(s): U07.1 - COVID-19 Status: Acute Assessment and Plan: Testing initiated with COVID-19 test positive. Continue isolation. Continue treatment of pneumonia as noted above. LDH decreased from admission. CRP also improved. Was offered hydroxychloroquine by machine shorthand reporter but declined. (4) Acute kidney injury: Code(s): N17.9 - Acute kidney failure, unspecified Status: Acute Assessment and Plan: Creatinine 3.8 on admission. Appreciate input from Nephrology earlier in stay. Creatinine is now remaining normal at 1.00 today. Renal ultrasound with 2.9 cm left renal cyst but otherwise normal. IV fluids. Has had Bumex as needed. Will use Bumex as needed. Continue to monitor. (5) Elevated transaminase level: Code(s): R74.0 - Nonspecific elevation of levels of transaminase and lactic acid dehydrogenase [LDH] Status: Acute Assessment and Plan: AST and ALT remain mildly elevated. Suspect result of infection. Will monitor periodically. (6) HTN (hypertension): Qualifiers: Hypertension type: essential hypertension Qualified Code(s): I10 - Essential (primary) hypertension Code(s): I10 - Essential (primary) hypertension Status: Acute Assessment and Plan: Blood pressure reviewed on 11/10/2019 and stable. Never required pressors. Will continue to monitor off medication at this time. Was on amlodipine, lisinopril, HCTZ and spironolactone at home. (7) Depression: Qualifiers: Depression Type: unspecified Qualified Code(s): F32.9 - Major depressive disorder, single episode, unspecified Code(s): F32.9 - Major depressive disorder, single episode, unspecified Status: Chronic Assessment and Plan: Mood stable. Continue fluoxetine. (8) DVT prophylaxis: Code(s): Z29.9 - Encounter for prophylactic measures, unspecified Status: Acute Assessment and Plan: Lovenox. Time Spent With Patient Time with patient: 15 - 25 minutes Subjective Date/time seen: 11/10/19 14:09 Interval history: Date of Service: 11/10/2019. Admitted with acute respiratory failure, pneumonia, COVID-19. Sitting in chair. Feeling better but still has cough and shortness of breath with activity. Does also have some chest pain from coughing. No abdominal pain. No nausea or vomiting. Review of Systems Review of Systems: Narrative: Starting to feel better. Constitutional: Constitutional: Denies chills and Denies fever(s) ENT: Denies nasal congestion and Denies nasal discharge Card
[2019-11-10] MEDS: GUAIFENESIN/DEXTROMETHORPHAN 10 ML UDC PO (20:25)
[2019-11-10] MEDS: ENOXAPARIN 40 MG/0.4 ML SYRINGE SUB-Q (20:25)
[2019-11-10] MEDS: ACETAMINOPHEN 325 MG TABLET 650 MG PO (20:28)
[2019-11-11] VITALS: PULSE 72; RESP 21; O2SAT 96
[2019-11-11 05:56] VITALS: BP 113/74; PULSE 75; RESP 21; TEMP 36.2; O2SAT 96
[2019-11-11] MEDS: ACETAMINOPHEN 325 MG TABLET 650 MG PO ×2 (06:21→20:57)
[2019-11-11] MEDS: GUAIFENESIN/DEXTROMETHORPHAN 10 ML UDC PO ×2 (06:21→18:26)
[2019-11-11 07:03] LABS: Basophils Absolute Auto 0.1 K/mm3 (0.0-0.1); Basophils Percent Auto 0.8 % (0.2-1.2); Eosinophils Absolute Auto 0.2 K/mm3 (0-0.3); Eosinophils Percent Auto 2.8 % (0-4.4); Hematocrit 34.5 % (37.0-47.0); Hemoglobin 11.3 g/dL (12.0-15.0); Immature Granulocyte Absolute 0.42 K/mm3 (0.00-0.031); Immature Granulocyte Percent A 6.9 % (0-0.5); Lymphocytes Absolute Auto 2.38 K/mm3 (0.9-3.2); Lymphocytes Percent Auto 39.3 % (18.3-44.2); Mean Corpuscular HGB Conc 32.8 g/dl (32-36); Mean Corpuscular Hemoglobin 29.6 pg (26-34); Mean Corpuscular Volume 90.3 fl (80-100); Mean Platelet Volume 9.5 fl (7.4-10.4); Monocytes Absolute Auto 0.5 K/mm3 (0.1-0.6); Monocytes Percent Auto 8.3 % (2.6-8.5); Neutrophils Absolute Auto 2.5 K/mm3 (1.3-6.7); Neutrophils Percent Auto 41.9 % (45.5-73.1); Platelet Count Result 450 k/mm3 (150-375); Red Blood Count 3.82 M/mm3 (4.2-5.4); Red Cell Distribution Width 13.2 % (11.5-14.5); White Blood Count 6.1 K/mm3 (4.5-10.0)
[2019-11-11 08:00] VITALS: BP 131/78; PULSE 62; RESP 14; TEMP 36.6; O2SAT 94
[2019-11-11 08:23] VITALS: O2SAT 96
[2019-11-11] MEDS: FAMOTIDINE 20 MG TABLET PO ×2 (08:35→20:58)
[2019-11-11] MEDS: FLUOXETINE HCL 20 MG CAP PO (08:35)
--- NOTE | 2019-11-11 11:20 | PCNFU ---
Nutrition Follow-Up Complete: Involuntary weight loss related to medical issues as evidenced by reported 2-13# weight loss without trying. Goal: Patient to consume 75% of meals or greater. Patient has been met goal. Pt current nutrition is Regular . Nutrition recommendation:Agree Last recorded weight is 109.5 kg. Bowel Motility:+BM today. Labs Reviewed:GFR 55,BUN 18,Glu 114,Na 132,Alb 2.7 Meds Noted:Lovenox Additional Notes: Patient remains on a Regular diet, eating 100% of breakfast today. Spoke with nursing today regarding patient 2/2 to COVID 19 precautions. Patient is not drinking Ensure compacts. Called MD today, diet supplements discontinued. Monitoring: Follow up every 5 days.
--- NOTE | 2019-11-11 13:13 | PCOTNOTE ---
Met with nursing to discuss patient therapy progress and plan of care this date.
--- NOTE | 2019-11-11 13:14 | PCPTNOTE ---
Spoke w/ Alina RN regarding pt's therapy progress and POC. Will follow.
--- NOTE | 2019-11-11 14:32 | PM.IMPN ---
Progress Note: A&P Assessment and Plan (1) Respiratory failure: Qualifiers: Chronicity: acute Respiratory failure complication: hypoxia Qualified Code(s): J96.01 - Acute respiratory failure with hypoxia Code(s): J96.90 - Respiratory failure, unspecified, unspecified whether with hypoxia or hypercapnia Status: Acute Assessment and Plan: Result of pneumonia due to COVID-19. Continues to progressively improve. Was down to 2 L high-flow oxygen this morning but able to wean to 2 L by nasal cannula this afternoon. Continue treatment of pneumonia as noted below. Continue to wean oxygen as tolerated. Telemetry reviewed on 11/11/2019 with sinus rhythm although patient is medical floor status. Echocardiogram with EF 64% and mild pulmonary hypertension. Continued to encourage ambulation. (2) Bilateral pneumonia: Qualifiers: Lung location: unspecified part of lung Pneumonia type: due to unspecified organism Qualified Code(s): J18.9 - Pneumonia, unspecified organism Code(s): J18.9 - Pneumonia, unspecified organism Status: Acute Assessment and Plan: Imaging on admission with bilateral airspace disease. Last follow-up chest x-ray on 11/09/2019 with diffuse lung disease still present but slight improvement. Weaning down on oxygen as noted above. Continue IV ceftriaxone currently at Day #11/14 but will stop IV azithromycin. Continue Combivent as needed. Sputum, blood and urine cultures all negative. Repeat chest xray in am. WBC normal at 6.1 today. (3) COVID-19: Code(s): U07.1 - COVID-19 Status: Acute Assessment and Plan: Testing initiated with COVID-19 test positive. Continue isolation. Continue treatment of pneumonia as noted above. LDH decreased from admission. CRP also improved. Was offered hydroxychloroquine by foaming machine operator but declined. (4) Acute kidney injury: Code(s): N17.9 - Acute kidney failure, unspecified Status: Acute Assessment and Plan: Creatinine 3.8 on admission. Appreciate input from Nephrology earlier in stay. Creatinine is now remaining normal at 1.00 on 11/10/2019. Renal ultrasound with 2.9 cm left renal cyst but otherwise normal. IV fluids. Has had Bumex as needed. Will only use Bumex as needed. Continue to monitor. (5) Elevated transaminase level: Code(s): R74.0 - Nonspecific elevation of levels of transaminase and lactic acid dehydrogenase [LDH] Status: Acute Assessment and Plan: AST and ALT remain mildly elevated. Suspect result of infection. Will monitor periodically. (6) HTN (hypertension): Qualifiers: Hypertension type: essential hypertension Qualified Code(s): I10 - Essential (primary) hypertension Code(s): I10 - Essential (primary) hypertension Status: Acute Assessment and Plan: Blood pressure reviewed on 11/11/2019 and remains stable. Never required pressors. Will continue to monitor off medication at this time. Was on amlodipine, lisinopril, HCTZ and spironolactone at home. (7) Depression: Qualifiers: Depression Type: unspecified Qualified Code(s): F32.9 - Major depressive disorder, single episode, unspecified Code(s): F32.9 - Major depressive disorder, single episode, unspecified Status: Chronic Assessment and Plan: Mood remains stable. Continue fluoxetine. (8) DVT prophylaxis: Code(s): Z29.9 - Encounter for prophylactic measures, unspecified Status: Acute Assessment and Plan: Lovenox. Subjective Date/time seen: 11/11/19 14:32 Interval history: Date of Service: 11/11/2019. Admitted with acute respiratory failure, pneumonia, COVID-19. Sitting in chair. Feeling better but still has shortness of breath. Cough improving but still present. No headache. No abdominal pain. Review of Systems Constitutional: Constitutional: Denies chills and Denies fever(s) ENT: Denies n
[2019-11-11 16:00] VITALS: BP 146/83; PULSE 84; RESP 28; TEMP 35.9; O2SAT 98
[2019-11-11 20:00] VITALS: PULSE 83; RESP 22; O2SAT 98
[2019-11-11] MEDS: ENOXAPARIN 40 MG/0.4 ML SYRINGE SUB-Q (20:58)
[2019-11-12] VITALS (7 sets, daily range): BP systolic 90–122; BP diastolic 63–75; PULSE 76–84; RESP 16–18; TEMP 36.3–37.4; O2SAT 93–94
--- NOTE | 2019-11-12 04:23 | PC.NURSE ---
Report given, patient transferred. Patient has all belongings. Room 329
--- NOTE | 2019-11-12 05:51 | PC.NURSE ---
Pt arrived from ICU per WC at 0415, oriented to room, equipment and call light verbalixed her understanding of instructions.
[2019-11-12] MEDS: FLUOXETINE HCL 20 MG CAP PO (10:01)
[2019-11-12] MEDS: ACETAMINOPHEN 325 MG TABLET 650 MG PO ×3 (10:01→20:32)
[2019-11-12] MEDS: FAMOTIDINE 20 MG TABLET PO ×2 (10:01→20:27)
--- NOTE | 2019-11-12 11:29 | PM.IMPN ---
Progress Note: A&P Assessment and Plan (1) Respiratory failure: Qualifiers: Chronicity: acute Respiratory failure complication: hypoxia Qualified Code(s): J96.01 - Acute respiratory failure with hypoxia Code(s): J96.90 - Respiratory failure, unspecified, unspecified whether with hypoxia or hypercapnia Status: Acute Assessment and Plan: Result of pneumonia due to COVID-19. Continues to make slow improvements. Now on oxygen by nasal cannula and has weaned back down to 2 L. will continue to wean oxygen as tolerated. Echocardiogram with EF 64% and mild pulmonary hypertension. Ambulation encouraged. Discussed removal of Soriano catheter possibly tomorrow if able to ambulate better today. Repeat chest x-ray today with diffuse lung disease with slight improvement on the right. Continue to monitor. (2) Bilateral pneumonia: Qualifiers: Lung location: unspecified part of lung Pneumonia type: due to unspecified organism Qualified Code(s): J18.9 - Pneumonia, unspecified organism Code(s): J18.9 - Pneumonia, unspecified organism Status: Acute Assessment and Plan: Imaging on admission with bilateral airspace disease. Chest x-ray today as noted above. Weaning oxygen as noted. IV azithromycin discontinued as of 11/11/2019. Remains on IV ceftriaxone currently at Day #12/14. Sputum, blood and urine cultures all negative. Last WBC normal. (3) COVID-19: Code(s): U07.1 - COVID-19 Status: Acute Assessment and Plan: Testing initiated with COVID-19 test positive. Continue isolation. Continue treatment of pneumonia as noted above. LDH decreased from admission. CRP also improved. Was offered hydroxychloroquine by insurance representative but declined. (4) Acute kidney injury: Code(s): N17.9 - Acute kidney failure, unspecified Status: Acute Assessment and Plan: Creatinine 3.8 on admission. Appreciate input from Nephrology earlier in stay. Creatinine is now remaining normal at 1.00 on 11/10/2019. Renal ultrasound with 2.9 cm left renal cyst but otherwise normal. IV fluids. Has had Bumex as needed. Will only use Bumex as needed. Continue to monitor. (5) Elevated transaminase level: Code(s): R74.0 - Nonspecific elevation of levels of transaminase and lactic acid dehydrogenase [LDH] Status: Acute Assessment and Plan: AST and ALT remain mildly elevated. Suspect result of infection. Will monitor periodically. (6) HTN (hypertension): Qualifiers: Hypertension type: essential hypertension Qualified Code(s): I10 - Essential (primary) hypertension Code(s): I10 - Essential (primary) hypertension Status: Acute Assessment and Plan: Blood pressure reviewed on 11/12/2019. Presently low normal but stable. Never required pressors. Will continue to monitor off medications at this time. Was on amlodipine, lisinopril, HCTZ and spironolactone at home. (7) Depression: Qualifiers: Depression Type: unspecified Qualified Code(s): F32.9 - Major depressive disorder, single episode, unspecified Code(s): F32.9 - Major depressive disorder, single episode, unspecified Status: Chronic Assessment and Plan: Mood remains stable. Continue fluoxetine. (8) DVT prophylaxis: Code(s): Z29.9 - Encounter for prophylactic measures, unspecified Status: Acute Assessment and Plan: Lovenox. Time Spent With Patient Time with patient: 15 - 25 minutes Subjective Date/time seen: 11/12/19 11:29 Interval history: Date of Service: 11/12/2019. Admitted with acute respiratory failure, pneumonia, COVID-19. Patient still with cough and shortness of breath today. Does notice some chest pain on the right with breathing. No abdominal pain. No nausea or vomiting. Review of Systems Constitutional: Constitutional: Denies chills and Denies fever(s) ENT: Denies nasal congestion and Den
[2019-11-12] MEDS: ENOXAPARIN 40 MG/0.4 ML SYRINGE SUB-Q (20:38)
[2019-11-13] VITALS (7 sets, daily range): BP systolic 102–127; BP diastolic 60–79; PULSE 68–83; RESP 16–22; TEMP 36.4–37.1; O2SAT 92–97
[2019-11-13] MEDS: FLUOXETINE HCL 20 MG CAP PO (08:23)
[2019-11-13] MEDS: FAMOTIDINE 20 MG TABLET PO ×2 (08:23→20:48)
[2019-11-13] MEDS: ACETAMINOPHEN 325 MG TABLET 650 MG PO ×2 (08:23→20:50)
--- NOTE | 2019-11-13 11:09 | PCPTNOTE ---
The PT treatment was unable to be completed today due to patient refusal. Will continue per Plan of Care frequency and duration.
--- NOTE | 2019-11-13 11:24 | PM.IMPN ---
Progress Note: A&P Assessment and Plan (1) Respiratory failure: Qualifiers: Chronicity: acute Respiratory failure complication: hypoxia Qualified Code(s): J96.01 - Acute respiratory failure with hypoxia Code(s): J96.90 - Respiratory failure, unspecified, unspecified whether with hypoxia or hypercapnia Status: Acute Assessment and Plan: Result of pneumonia due to COVID-19. Continues to steadily improve. Remains on oxygen by nasal cannula at 2 L. Suspect will need oxygen at discharge. Discussed with respiratory therapy. Order for home O2 done but no need for home oxygen evaluation due to COVID-19.. Echocardiogram with EF 64% and mild pulmonary hypertension. Ambulation encouraged. Discontinue Soriano catheter today. At this point, anticipate discharge in next 1-2 days as long as continues to improve. (2) Bilateral pneumonia: Qualifiers: Lung location: unspecified part of lung Pneumonia type: due to unspecified organism Qualified Code(s): J18.9 - Pneumonia, unspecified organism Code(s): J18.9 - Pneumonia, unspecified organism Status: Acute Assessment and Plan: Imaging on admission with bilateral airspace disease. Chest x-ray today as noted above. Weaning oxygen as noted. IV azithromycin discontinued as of 11/11/2019. Remains on IV ceftriaxone currently at Day #13/14. Sputum, blood and urine cultures all negative. Last WBC normal. (3) COVID-19: Code(s): U07.1 - COVID-19 Status: Acute Assessment and Plan: Testing initiated with COVID-19 test positive. Continue isolation. Continue treatment of pneumonia as noted above. LDH decreased from admission. CRP also improved. Was offered hydroxychloroquine by mexican food machine tender but declined. (4) Acute kidney injury: Code(s): N17.9 - Acute kidney failure, unspecified Status: Acute Assessment and Plan: Creatinine 3.8 on admission. Appreciate input from Nephrology earlier in stay. Creatinine is now remaining normal at 1.00 on 11/10/2019. Renal ultrasound with 2.9 cm left renal cyst but otherwise normal. IV fluids. Has had Bumex as needed. Will only use Bumex as needed. Continue to monitor. (5) Elevated transaminase level: Code(s): R74.0 - Nonspecific elevation of levels of transaminase and lactic acid dehydrogenase [LDH] Status: Acute Assessment and Plan: AST and ALT remain mildly elevated on last check. Suspect result of infection. Will monitor periodically. (6) HTN (hypertension): Qualifiers: Hypertension type: essential hypertension Qualified Code(s): I10 - Essential (primary) hypertension Code(s): I10 - Essential (primary) hypertension Status: Acute Assessment and Plan: Blood pressure reviewed on 11/13/2019. Remains low normal but stable. Never required pressors. Will continue to monitor off medications at this time. Was on amlodipine, lisinopril, HCTZ and spironolactone at home. (7) Depression: Qualifiers: Depression Type: unspecified Qualified Code(s): F32.9 - Major depressive disorder, single episode, unspecified Code(s): F32.9 - Major depressive disorder, single episode, unspecified Status: Chronic Assessment and Plan: Mood is good and stable. Continue fluoxetine. (8) DVT prophylaxis: Code(s): Z29.9 - Encounter for prophylactic measures, unspecified Status: Acute Assessment and Plan: Lovenox. Time Spent With Patient Time with patient: 15 - 25 minutes Subjective Date/time seen: 11/13/19 11:24 Interval history: Date of Service: 11/13/2019. Admitted with acute respiratory failure, pneumonia, COVID-19. Feeling better today. Cough improving. Shortness of breath improving. Chest pressure still present but improving. No abdominal pain. Review of Systems Review of Systems: Narrative: Feeling better today. Constitutional: Constitutional: Denies chills an
--- NOTE | 2019-11-13 15:10 | PCRCNOTE ---
HOME O2 TO BE SET UP WITH [facility], ORDER WRITTEN FOR 2L. HOME O2 EVALUATION FOR COVID POSITIVE PATIENTS IS NOT NEEDED, ONLY THE DOCTORS ORDER FOR THE O2. TANK TO BE DROPPED OFF TO PATIENT [facility] FOR TRANSPORT HOME.
[2019-11-13] MEDS: ENOXAPARIN 40 MG/0.4 ML SYRINGE SUB-Q (20:48)
[2019-11-14 02:00] VITALS: BP 121/82; PULSE 79; RESP 18; TEMP 36.6; O2SAT 93
[2019-11-14 06:00] VITALS: BP 134/83; PULSE 85; RESP 18; TEMP 36.4; O2SAT 96
[2019-11-14 06:57] LABS: Alanine Aminotransferase 108 U/L (4-35); Albumin Level 3.3 g/dL (3.5-5.1); Alkaline Phosphatase 87 U/L (38-126); Aspartate Amino Transferase 69 U/L (14-36); Bilirubin,Total 0.4 mg/dL (0.2-1.3); Blood Urea Nitrogen 20 mg/dL (7-17); Carbon Dioxide 30 mmol/L (22-30); Chloride 106 mmol/L (98-107); Estimated CRCL calculation 70 ml/min; Estimated Glomerular Filt Rate > 60; Glucose 93 mg/dL (65-105); Potassium 4.5 mmol/L (3.4-5.0); Sodium 138 mmol/L (137-145)
[2019-11-14 10:00] VITALS: BP 103/68; PULSE 83; RESP 18; TEMP 36.9; O2SAT 94
[2019-11-14] MEDS: FLUOXETINE HCL 20 MG CAP PO (10:09)
[2019-11-14] MEDS: FAMOTIDINE 20 MG TABLET PO (10:09)
[2019-11-14] MEDS: ACETAMINOPHEN 325 MG TABLET 650 MG PO (10:15)
--- NOTE | 2019-11-14 10:55 | PM.IMPN ---
Progress Note: A&P Assessment and Plan (1) Respiratory failure: Qualifiers: Chronicity: acute Respiratory failure complication: hypoxia Qualified Code(s): J96.01 - Acute respiratory failure with hypoxia Code(s): J96.90 - Respiratory failure, unspecified, unspecified whether with hypoxia or hypercapnia Status: Acute Assessment and Plan: Result of pneumonia due to COVID-19. Overall continue to improve but has been unable to wean off oxygen by nasal cannula remaining at 2 L. arrangements for home oxygen have been made. Echocardiogram with EF 64% and mild pulmonary hypertension. Soriano catheter removed yesterday with patient urinating on her own. Will plan to give final dose of IV antibiotics this afternoon and then may discharge home. (2) Bilateral pneumonia: Qualifiers: Lung location: unspecified part of lung Pneumonia type: due to unspecified organism Qualified Code(s): J18.9 - Pneumonia, unspecified organism Code(s): J18.9 - Pneumonia, unspecified organism Status: Acute Assessment and Plan: Imaging on admission with bilateral airspace disease. Chest x-ray on 11/13/2019 with continued diffuse lung disease but improved. Sending home on home oxygen as noted above. WBC remains normal. IV azithromycin discontinued as of 11/11/2019. Will complete Day #14/14 of IV ceftriaxone before discharge this afternoon. Sputum, blood and urine cultures all negative. (3) COVID-19: Code(s): U07.1 - COVID-19 Status: Acute Assessment and Plan: Testing initiated with COVID-19 test positive. Continue isolation. Continue treatment of pneumonia as noted above. LDH decreased from admission. CRP also improved. Was offered hydroxychloroquine by shield runner but declined. Patient aware will need to continue self isolation at home until symptoms resolved. Patient has expressed interest in possible plasma donation and will provide information. (4) Acute kidney injury: Code(s): N17.9 - Acute kidney failure, unspecified Status: Resolved Assessment and Plan: Creatinine 3.8 on admission. Appreciate input from Nephrology earlier in stay. Creatinine remains normal at 1.00 on 11/14/2019. Has previously required p.r.n. Bumex but none recently. Renal ultrasound with 2.9 cm left renal cyst but otherwise normal. (5) Elevated transaminase level: Code(s): R74.0 - Nonspecific elevation of levels of transaminase and lactic acid dehydrogenase [LDH] Status: Acute Assessment and Plan: AST and ALT remain mildly elevated but improving with AST 69 and ALT 108 today. Suspect result of infection. Follow as outpatient. (6) HTN (hypertension): Qualifiers: Hypertension type: essential hypertension Qualified Code(s): I10 - Essential (primary) hypertension Code(s): I10 - Essential (primary) hypertension Status: Acute Assessment and Plan: Blood pressure reviewed on 11/14/2019 and remains stable with home medications of amlodipine, lisinopril, HCTZ and spironolactone all remaining on hold. Did not require pressor agents during this stay. Will need to monitor as an outpatient. (7) Depression: Qualifiers: Depression Type: unspecified Qualified Code(s): F32.9 - Major depressive disorder, single episode, unspecified Code(s): F32.9 - Major depressive disorder, single episode, unspecified Status: Chronic Assessment and Plan: Mood stable. Continue fluoxetine. (8) DVT prophylaxis: Code(s): Z29.9 - Encounter for prophylactic measures, unspecified Status: Acute Assessment and Plan: Lovenox. Time Spent With Patient Time with patient: 15 - 25 minutes Subjective Date/time seen: 11/14/19 10:55 Interval history: Date of Service: 11/14/2019. Admitted with acute respiratory failure, pneumonia, COVID-19. Just finished some exercises with therapy. Patient reports does stil
--- NOTE | 2019-11-14 12:05 | PCOTNOTE ---
The patient treatment was not able to be completed on 11/14/19 due to patient in the process of discharging upon therapy s arrival. Will plan to continue treatment per plan of care.
[2019-11-14 14:00] VITALS: BP 108/76; PULSE 66; RESP 18; TEMP 36.9; O2SAT 94
[2019-11-14] MEDS: CEFDINIR 300 MG CAPSULE PO (16:28)
--- NOTE | 2019-11-14 16:43 | PM.DS ---
DS: Diagnosis Admitting Diagnosis Admitting Diagnosis: Acute respiratory failure with hypoxia Discharge Diagnosis (1) Respiratory failure: Qualifiers: Chronicity: acute Respiratory failure complication: hypoxia Qualified Code(s): J96.01 - Acute respiratory failure with hypoxia Code(s): J96.90 - Respiratory failure, unspecified, unspecified whether with hypoxia or hypercapnia Status: Acute (2) Bilateral pneumonia: Qualifiers: Lung location: unspecified part of lung Pneumonia type: due to unspecified organism Qualified Code(s): J18.9 - Pneumonia, unspecified organism Code(s): J18.9 - Pneumonia, unspecified organism Status: Acute (3) COVID-19: Code(s): U07.1 - COVID-19 Status: Acute (4) Acute kidney injury: Code(s): N17.9 - Acute kidney failure, unspecified Status: Resolved (5) Elevated transaminase level: Code(s): R74.0 - Nonspecific elevation of levels of transaminase and lactic acid dehydrogenase [LDH] Status: Acute (6) HTN (hypertension): Qualifiers: Hypertension type: essential hypertension Qualified Code(s): I10 - Essential (primary) hypertension Code(s): I10 - Essential (primary) hypertension Status: Acute (7) Depression: Qualifiers: Depression Type: unspecified Qualified Code(s): F32.9 - Major depressive disorder, single episode, unspecified Code(s): F32.9 - Major depressive disorder, single episode, unspecified Status: Chronic DS: Summary Hospital Course Reason for hospitalization: Chest pain, shortness of breath, low-grade fevers. Hospital Course: Date of Service of Discharge: November 14, 2019. History of Present Illness: Patient is a pleasant 49-year-old female who presented to the emergency room with complaint of left-sided chest pain, shortness of breath and low-grade fevers. Patient has been ill since the 22 of October. She was prescribed some antibiotics by her primary care physician approximately 3 days prior to admission without improvement. Addition to other symptoms she has been noted to have dry cough, muscle aches and body aches. 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 She did not travel. Evaluation in the emergency room did reveal bilateral pneumonia and was concerning for COVID-19 infection. testing was initiated through the emergency room. She additionally had hypotension with IV fluids given. Given her status, she was felt most appropriate to admit to the ICU for further evaluation and treatment. Course in Hospital: Patient was initially admitted to the ICU with physician allergist immunologist consultation. Aggressive treatment ensued. She was given IV fluids initially. She was started on IV azithromycin and Rocephin. Inhaler was available as needed. She initially did require 5-6 L of oxygen. Cultures were obtained. Patient did have worsening respiratory status requiring increased oxygen need and did increase to a maximum of 15 L high-flow oxygen during her stay. COVID testing did eventually return as positive with other cultures negative. Acute phase reactants were elevated but CRP, ferritin and LDH as well as LFTs were decreasing by discharge. She continued her respiratory treatments with slow but steady improvement. Patient was able to be transferred from the ICU to IMU on 11/07/2019. She was then able to transfer to the medical floor on 11/10/2019 where she remained for the duration of her stay. Oxygen needs eventually did steadily decrease. Patient was able to eventually transition from high-flow oxygen back to nasal cannula. She continued to require 2 L oxygen per nasal cannula and was not able to be weaned off by discharge. Arrangements were made for home oxygen as result. She did complete her course of IV azithromycin. Patient had completed 13 of 14 doses of IV ceftriaxone. Plan was complete last dose prior to discharge but IV access lost. Instead,
--- NOTE | 2019-11-14 17:50 | PC.NURSE ---
Patient discharged via wheel chair @1745. Patient discharged with home O2 and was instructed to call [facility] for further instruction. IV lines discontinued and discharge instructions were verified with the patient.
== END 2019-11-14 17:45 | disposition home or self-care (01) | DRG 177 ==
LOC: ANHED 17:32 → ANHICU 17:35 → ANH3MEDSUR 11-14 11:21 → ANHICU 11-16 14:50
PROVIDERS: Internal Medicine; Internal Medicine Nephrology; Nurse Practitioner; Admitting Provider Family Medicine; Emergency Provider Emergency Medicine; Visit Provider Hospitalist
DX: U07.1 COVID-19 (principal); J18.9 Pneumonia, unspecified organism; J96.01 Acute respiratory failure with hypoxia; I50.31 Acute diastolic (congestive) heart failure; N17.9 Acute kidney failure, unspecified; I11.0 Hypertensive heart disease with heart failure; F41.8 Other specified anxiety disorders; E86.0 Dehydration; R74.0 Nonspecific elevation of levels of transaminase and lactic acid dehydrogenase [LDH]
CPT/HCPCS: 36415; 36600; 71045; 76775; 80048; 80053; 81001; 82375; 82550; 82570; 82728; 82805; 83050; 83605; 83615; 83735; 83880; 84100; 84145; 84156; 84300; 84484; 85025; 85027; 85380; 85610; 85730; 86140; 87040; 87070; 87086; 87088; 87205; 87804; 93005; 93306; 94640; 96365; 96367; 96368; 97110; 97116; 97162; 97165; 97530; 97535; 99285; A9270; C1751; J0131; J0456; J0696; J1644; J1650; J1940; J2997; J7030; J7040

== ENCOUNTER 2020-07-05 08:01 | Outpatient (CLI) | payer BC, SELFPAY ==
--- NOTE | 2020-07-19 08:32 | WPDSIXMINUTE ---
Six Minute Walk Six Minute Walk: The patients O2 sats started at 92% and dropped as low as 90% Total walk distance 274.32 meters conclusion: Although there was some exertional hypoxemia, it did not meet criteria for benefit from home oxygen therapy.
== END 2020-07-05 08:02 | disposition home or self-care (01) ==
PROVIDERS: PCP Nurse Practitioner Family
DX: R06.00 Dyspnea, unspecified (principal)
CPT/HCPCS: 94618

== ENCOUNTER 2020-08-02 07:38 | Outpatient (CLI) | payer BC, SELFPAY ==
--- NOTE | ~2020-08-02 | US_ITS ---
EXAMINATION: US renal BI EXAM DATE: 08/02/2020 08:04 INDICATION: Acute kidney failure. TECHNIQUE: Multiple grayscale and Doppler images of the kidneys were obtained (by a technologist who performed the scan) and subsequently reviewed. Comparison is made to prior examination from 11/02/2019 . FINDINGS: Right kidney: There is normal contour and echogenicity. It measures 9.4 x 3.7 x 3.6 centimeters. Th ere are no focal renal lesions identified. There is no hydronephrosis. Left kidney: There is normal contour and echogenicity. It measures 9.4 x 5.2 x 4.2 centimeters. Ther e is a 3.5 cm cyst in the inferior pole. There is no hydronephrosis. Bladder unremarkable. IMPRESSION: No hydronephrosis or interval change. Reviewed, dictated and finalized at location B. X SERVER ADMINISTRATOR
== END 2020-08-02 07:39 | disposition home or self-care (01) ==
PROVIDERS: PCP Nurse Practitioner Family; Visit Provider Internal Medicine Nephrology
DX: N17.9 Acute kidney failure, unspecified (principal)
CPT/HCPCS: 76775

== ENCOUNTER 2020-08-16 08:19 | Outpatient (CLI) | payer BC, OTHER, SELFPAY ==
--- NOTE | 2020-08-16 14:22 | WPDPFTINT ---
PFT Interpretation This is a pulmonary function test with pre and post-bronchodilator spirometry, plethysmography and diffusing capacity. The test was performed and results interpreted in accordance with the 2019 and 2005 ATS/ERS Task Force guidelines respectively using the Floyd/Raheem reference equations. Findings: Spirometry: The contour of the inspiratory and expiratory flow tracing are normal. The pre-bronchodilator FVC is 2.85 L, 93% predicted. The pre bronchodilator FEV1 is 2.32 L, 99% predicted. The FEV1: FVC ratio is 82%. The post bronchodilator FVC is 2.92 L, representing a 2% increase. The post bronchodilator FEV1 is 2.37 L, representing a 2% increase. Plethysmography: The total lung capacity is 4.07 L, 89% predicted. The functional residual capacity is 1.65 L, 96% predicted. The residual volume is 1.22, 76% predicted. Diffusing capacity: The absolute diffusing capacity is 17.1, 63% predicted. The diffusing capacity corrected for alveolar volume is 4.69, 115% predicted Impression: The spirometry is normal without evidence of an obstructive abnormality. There is no significant improvement after inhaling a single dose of albuterol. The total lung capacity is normal and there is an isolated decrease in the residual volume of uncertain significance. The absolute diffusing capacity is mildly decreased but normalizes when corrected for alveolar volume. There are no prior studies for comparison
== END 2020-08-16 08:20 | disposition home or self-care (01) ==
PROVIDERS: PCP Nurse Practitioner Family; Visit Provider Nurse Practitioner
DX: R06.00 Dyspnea, unspecified (principal)
CPT/HCPCS: 94060; 94726; 94729

== ENCOUNTER 2020-10-19 09:03 | Outpatient (CLI) | payer BC, OTHER, SELFPAY ==
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
[2020-11-04 21:00] VITALS: BMI 44.0
== END 2020-10-19 09:04 | disposition home or self-care (01) ==
LOC: ANHCSM 09:04
PROVIDERS: PCP Nurse Practitioner Family; Visit Provider Nurse Practitioner
DX: G47.30 Sleep apnea, unspecified (principal); G47.33 Obstructive sleep apnea (adult) (pediatric)
CPT/HCPCS: 95806

== ENCOUNTER → 2021-01-02 02:22 | Outpatient (CLI) | payer BC, OTHER, SELFPAY ==
[2021-01-02 17:04] LABS: SARS-CoV-2 RNA PCR Negative
== END ==
PROVIDERS: PCP Nurse Practitioner Family; Visit Provider Internal Medicine Critical Care Medicine
DX: R68.89 Other general symptoms and signs (principal); Z20.822 Contact with and (suspected) exposure to COVID-19
CPT/HCPCS: C9803; U0003; U0005

== ENCOUNTER → 2021-01-04 | Outpatient (CLI) | payer BC, OTHER, SELFPAY ==
[2021-01-20 17:07] VITALS: BMI 44.0
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
== END | disposition home or self-care (01) ==
LOC: ANHCSM 07:58
PROVIDERS: PCP Nurse Practitioner Family; Visit Provider Nurse Practitioner
DX: G47.33 Obstructive sleep apnea (adult) (pediatric) (principal); E66.9 Obesity, unspecified; Z68.41 Body mass index [BMI] 40.0-44.9, adult
CPT/HCPCS: 95811

== ENCOUNTER 2022-01-22 18:00 | Outpatient (CLI) | payer BC, OTHER, SELFPAY ==
--- NOTE | ~2022-01-22 | XR_ITS ---
EXAM: XR knee RT 3V DATE: 01/22/2022 18:35 HISTORY: pain to medial/anterior right knee, no injury . COMPARISON: None available. FINDINGS: Normal mineralization. No fracture or dislocation. No lytic or blastic lesion. Severe tian llofemoral and moderate medial joint space narrowing. Tricompartmental osteophytosis. Lateral patella r subluxation. Quadriceps enthesopathy. No erosion or periosteal change. Soft tissues within normal l imits. IMPRESSION: Tricompartmental right knee osteoarthritis, severe in the patellofemoral compartment. Reviewed, dictated and finalized at location K. IMPRESSION: Tricompartmental right knee osteoarthritis, severe in the patellofe moral compartment.
== END 2022-01-22 18:01 | disposition home or self-care (01) ==
PROVIDERS: PCP Nurse Practitioner Family; Visit Provider Nurse Practitioner Family
DX: M17.11 Unilateral primary osteoarthritis, right knee (principal)
CPT/HCPCS: 73562

== ENCOUNTER 2022-03-21 18:16 | Outpatient (CLI) | payer BC, OTHER, SELFPAY ==
--- NOTE | ~2022-03-21 | XR_ITS ---
EXAMINATION: XR abdomen/kub 1V DATE: 03/21/2022 18:31 INDICATION: Abdominal pain. TECHNIQUE: A supine view of the abdomen on 2 radiographs was obtained. COMPARISON: None. FINDINGS: There are no dilated loops of bowel. There is a small volume of stool in the colon. IMPRESSION: 1. Normal bowel gas pattern. Reviewed, dictated and finalized at location A.
== END 2022-03-21 18:17 | disposition home or self-care (01) ==
PROVIDERS: PCP Nurse Practitioner Family; Visit Provider Nurse Practitioner Family
DX: R10.9 Unspecified abdominal pain (principal)
CPT/HCPCS: 74018

== ENCOUNTER 2022-12-05 15:47 | Outpatient (CLI) | payer BC, OTHER, SELFPAY ==
[2022-12-05 16:05] LABS: Basophils Absolute Auto 0.1 K/mm3 (0.0-0.1); Basophils Percent Auto 1.7 % (0.2-1.2); Eosinophils Absolute Auto 0.4 K/mm3 (0-0.3); Eosinophils Percent Auto 7.2 % (0-4.4); Hematocrit 38.2 % (37.0-47.0); Hemoglobin 12.5 g/dL (12.0-15.0); Immature Granulocyte Absolute 0.02 K/mm3 (0.00-0.031); Immature Granulocyte Percent A 0.4 % (0-0.5); Lymphocytes Absolute Auto 2.03 K/mm3 (0.9-3.2); Lymphocytes Percent Auto 38.5 % (18.3-44.2); Mean Corpuscular HGB Conc 32.7 g/dl (32-36); Mean Corpuscular Hemoglobin 29.2 pg (26-34); Mean Corpuscular Volume 89.3 fl (80-100); Mean Platelet Volume 9.3 fl (7.4-10.4); Monocytes Absolute Auto 0.5 K/mm3 (0.1-0.6); Monocytes Percent Auto 9.3 % (2.6-8.5); Neutrophils Absolute Auto 2.3 K/mm3 (1.3-6.7); Neutrophils Percent Auto 42.9 % (45.5-73.1); Platelet Count Result 332 k/mm3 (150-375); Red Blood Count 4.28 M/mm3 (4.2-5.4); Red Cell Distribution Width 13.9 % (11.5-14.5); White Blood Count 5.3 K/mm3 (4.5-10.0)
[2022-12-05 16:34] LABS: Iron 40 ug/dL (37-170)
[2022-12-05 16:38] LABS: Alanine Aminotransferase 26 U/L (6-35); Albumin Level 4.5 g/dL (3.5-5.1); Alkaline Phosphatase 87 U/L (38-126); Anion Gap 7 mmol/L (8-16); Aspartate Amino Transferase 26 U/L (14-36); Blood Urea Nitrogen 25 mg/dL (7-17); Calcium 9.3 mg/dL (8.4-10.2); Carbon Dioxide 29 mmol/L (22-30); Chloride 105 mmol/L (98-107); Estimated Glomerular Filt Rate 34; Glucose 92 mg/dL (65-110); Potassium 4.3 mmol/L (3.4-5.0); Sodium 141 mmol/L (137-145)
[2022-12-05 16:43] LABS: Percent Iron Saturation 11 % (20-50)
[2022-12-05 17:47] LABS: Folic Acid 8.7 ng/mL (2.76->20); Vitamin B12 > 1000.0 pg/mL (239-931)
[2022-12-12 11:33] LABS: Anti Nuclear Antibody Titer 1:40 (Negative)
== END 2022-12-05 15:48 | disposition home or self-care (01) ==
LOC: ANHLAB 15:51
PROVIDERS: PCP Nurse Practitioner Family; Visit Provider Internal Medicine Hematology & Oncology
DX: D72.819 Decreased white blood cell count, unspecified (principal)
CPT/HCPCS: 36415; 80053; 82607; 82728; 82746; 83540; 83550; 85025; 86038; 86039

== ENCOUNTER 2022-12-17 09:13 | Outpatient (CLI) | payer BC, OTHER, SELFPAY ==
--- NOTE | ~2022-12-17 | US_ITS ---
US abdomen complete EXAMINATION: US Abdomen Complete INDICATION: Leukopenia PROCEDURE: Realtime High Resolution abdomen ultrasound. COMPARISON: No prior studies for comparison FINDINGS: Gallbladder within normal limits. No gallstones, pericholecystic fluid, gallbladder wall t hickening or biliary dilatation. Common bile duct measures 5 mm. Liver echotexture within normal limits without focal mass. Pancreas within normal limits. Pancreati c tail is obscured by bowel gas. Spleen is unremarkeable. Renal echotexture is within normal limits bilaterally without hydronephrosis, contour deforming mass or renal stone. Right kidney measures 10.5 cm. Left kidney measures 10.5 cm. There is a left renal cyst measuring 4.2 cm. Visualized aspects of the aorta and IVC are within normal limits. Portal vein is patent. No sonograph ic Salazar's sign indicated by the technologist. IMPRESSION: 1: Normal abdominal ultrasound. Reviewed, dictated and finalized at location B.
== END 2022-12-17 09:14 | disposition home or self-care (01) ==
PROVIDERS: PCP Nurse Practitioner Family; Visit Provider Internal Medicine Hematology & Oncology
DX: D72.819 Decreased white blood cell count, unspecified (principal)
CPT/HCPCS: 76700

== ENCOUNTER 2023-03-22 12:44 | Outpatient (CLI) | payer BC, OTHER, SELFPAY ==
--- NOTE | ~2023-03-22 | US_ITS ---
EXAMINATION: US renal BI DATE: 03/22/2023 13:37 INDICATION: Stage III B chronic kidney failure TECHNIQUE: Multiple ultrasound grayscale images of the kidneys were obtained. COMPARISON: None. FINDINGS: The right kidney measures 9.3 x 4.2 x 4.5 cm. The left kidney measures 9.1 x 4.4 x 5.3 cm. The kidney s demonstrate normal echogenicity. Minimal increase in size of a now 4.5 cm anechoic cyst at the lowe r pole of the left kidney. There is no hydronephrosis in either kidney. No stones identified. The bl adder is normal with bilateral ureteral jets visualized on color Doppler. IMPRESSION: 1. 4.5 cm left renal cyst. Otherwise normal kidneys with no hydronephrosis. Reviewed, dictated and finalized at location A.
[2023-03-22 15:01] LABS: Albumin Level 4.1 g/dL (3.5-5.1); Anion Gap 4 mmol/L (8-16); Blood Urea Nitrogen 30 mg/dL (7-17); Calcium 8.7 mg/dL (8.4-10.2); Carbon Dioxide 24 mmol/L (22-30); Chloride 107 mmol/L (98-107); Estimated Glomerular Filt Rate 38; Glucose 91 mg/dL (65-110); Phosphorus 3.5 mg/dL (2.5-4.5); Potassium 4.1 mmol/L (3.4-5.0); Sodium 135 mmol/L (137-145)
[2023-03-22 15:07] LABS: Creatinine Urine 52.8 mg/dL; Total Protein Urine Random 8 mg/dL; Ur Ttl Prot Creatinine Ratio 0.15 mg/mg (0-0.20)
[2023-03-22 15:08] LABS: Complement C3 115 mg/dL (88-165)
[2023-03-26 15:19] LABS: Alpha 1 Globulin 0.3 g/dL (0.2-0.3); Alpha 2 Globulin 0.8 g/dL (0.5-0.9); Beta 1 Globulin 0.5 g/dL (0.4-0.6); Gamma Globulin 1.1 g/dL (0.8-1.7); Protein, Total 6.9 g/dL (6.1-8.1)
[2023-03-27 21:23] LABS: Creatinine, Random Urine 50 mg/dL (20-275)
[2023-04-02 21:50] LABS: ANCA Screen Negative (Negative)
[2023-04-04 19:00] LABS: Anti Glomerular Basement Memb <1.0 AI (<1.0)
== END 2023-03-22 12:45 | disposition home or self-care (01) ==
PROVIDERS: PCP Nurse Practitioner Family; Visit Provider Internal Medicine Nephrology
DX: I12.9 Hypertensive chronic kidney disease with stage 1 through stage 4 chronic kidney disease, or unspecified chronic kidney disease (principal); N18.32 Chronic kidney disease, stage 3b
CPT/HCPCS: 36415; 76775; 80069; 82570; 83520; 84155; 84156; 84165; 84166; 86036; 86038; 86039; 86160; 86225

== ENCOUNTER 2023-08-12 18:17 | Emergency (ER) | payer BC, OTHER, SELFPAY ==
[2023-08-12 18:21] VITALS: BP 121/79; PULSE 54; RESP 18; TEMP 37; O2SAT 100
--- NOTE | 2023-08-12 18:26 | ECG_ITS ---
Measurements Intervals [place] Rate: 55 P: 42 ND: 153 QRS: 3 QRSD: 97 T: 32 QT: 422 QTc: 406 Interpretive Statements SINUS BRADYCARDIA INCOMPLETE RIGHT BUNDLE BRANCH BLOCK LEFT VENTRICULAR HYPERTROPHY MINIMAL Q WAVES- HIGH LATERAL LEADS BORDERLINE ST-T WAVE ABNORMALITY- ANT/INF LEADS BASELINE ARTIFACT- I, III, AVR, AVL, V1 BORDERLINE ECG NO PREVIOUS ECG AVAILABLE FOR COMPARISON Electronically Signed On 08-13-2023 5:55:31 CYTOLOGY SUPERVISOR by Kayden Knapp D.O.
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
[2023-08-12 23:20] LABS: Basophils Absolute Auto 0.1 K/mm3 (0.0-0.1); Eosinophils Absolute Auto 0.2 K/mm3 (0-0.3); Eosinophils Percent Auto 4.4 % (0-4.4); Hematocrit 41.9 % (37.0-47.0); Hemoglobin 13.1 g/dL (12.0-15.0); Immature Granulocyte Absolute 0.02 K/mm3 (0.00-0.031); Immature Granulocyte Percent A 0.4 % (0-0.5); Lymphocytes Percent Auto 34.7 % (18.3-44.2); Mean Corpuscular HGB Conc 31.3 g/dl (32-36); Mean Corpuscular Hemoglobin 28.5 pg (26-34); Mean Corpuscular Volume 91.3 fl (80-100); Mean Platelet Volume 9.3 fl (7.4-10.4); Monocytes Absolute Auto 0.5 K/mm3 (0.1-0.6); Monocytes Percent Auto 8.7 % (2.6-8.5); Neutrophils Absolute Auto 2.6 K/mm3 (1.3-6.7); Neutrophils Percent Auto 50.8 % (45.5-73.1); Platelet Count Result 303 k/mm3 (150-375); Red Blood Count 4.59 M/mm3 (4.2-5.4); White Blood Count 5.2 K/mm3 (4.5-10.0)
[2023-08-12] MEDS: ONDANSETRON HCL ODT 4 MG TABLET PO (23:23)
[2023-08-12 23:30] LABS: Alanine Aminotransferase 20 U/L (6-35); Albumin Level 4.1 g/dL (3.5-5.1); Alkaline Phosphatase 87 U/L (38-126); Anion Gap 8 mmol/L (8-16); Aspartate Amino Transferase 23 U/L (14-36); Bilirubin,Total 0.9 mg/dL (0.2-1.3); Blood Urea Nitrogen 40 mg/dL (7-17); Calcium 9.3 mg/dL (8.4-10.2); Carbon Dioxide 26 mmol/L (22-30); Chloride 104 mmol/L (98-107); Estimated CRCL calculation 40 ml/min; Estimated Glomerular Filt Rate 36; Glucose 103 mg/dL (65-110); Magnesium 1.9 mg/dL (1.6-2.3); Potassium 4.9 mmol/L (3.4-5.0); Sodium 138 mmol/L (137-145)
[2023-08-12 23:31] LABS: Lactic Acid Reflex 0.6 mmol/L (0.7-2.0)
[2023-08-12 23:42] LABS: Troponin I < 0.012 ng/mL (0.000-0.034)
[2023-08-13 00:08] LABS: Appearance Urine Clear (Clear); Bacteria Urine None Seen /hpf; Bilirubin Urine Negative (Negative); Blood Urine Negative (Negative); Color Urine Yellow (Yellow); Glucose Urine UA Negative (Negative); Ketones Urine Negative (Negative); Leukocyte Esterase Ur 2+ LEU/UL (Negative); Nitrate Urine Negative (Negative); Non Pathogenic Casts 0-2; Protein Urine Negative (Negative); Specific Grav Ur 1.021 (1.001-1.035); Squamous Epithelial Cell Urine Occasional /hpf (Few); pH Urine 5.5 (5.0-9.0)
[2023-08-13 00:16] LABS: Add Urine Microscopic? YES
== END 2023-08-13 00:34 | disposition home or self-care (01) ==
PROVIDERS: Nurse Practitioner Family; Emergency Provider Physician Assistant; PCP Nurse Practitioner Family
DX: R55 Syncope and collapse (principal); I12.9 Hypertensive chronic kidney disease with stage 1 through stage 4 chronic kidney disease, or unspecified chronic kidney disease; N18.30 Chronic kidney disease, stage 3 unspecified; R73.03 Prediabetes; K58.9 Irritable bowel syndrome, unspecified; F41.9 Anxiety disorder, unspecified; F32.A Depression, unspecified; I45.10 Unspecified right bundle-branch block; I51.7 Cardiomegaly; R00.1 Bradycardia, unspecified
CPT/HCPCS: 36415; 80053; 81001; 83605; 83735; 84484; 85025; 87077; 87086; 87088; 93005; 99284; A9270

== ENCOUNTER 2023-09-24 16:16 | Outpatient (CLI) | payer BC, OTHER, SELFPAY ==
--- NOTE | ~2023-09-24 | US_ITS ---
EXAMINATION: US thyroid DATE: 09/24/2023 17:17 INDICATION: Neck mass. TECHNIQUE: Multiple ultrasound images of the thyroid were obtained. COMPARISON: Cervical spine CT 11/09/2016 FINDINGS: The right thyroid lobe measures 6.2 x 2.5 x 2.4 cm. The left thyroid lobe measures 9.9 x 4.0 x 6.0 c m. In the right thyroid lobe, there is a 6 mm solid, hypoechoic, wider than tall nodule with smooth margin without echogenic foci (TI-RADS TR4). In the left thyroid lobe, there is a 6.0 x 3.9 x 6.2 cm solid, hypoechoic, wider than tall nodule with lobulated margin without echogenic foci (TR4), increas ed in size from 5.1 x 3.4 cm on 11/09/16. IMPRESSION: 1. Left thyroid nodule with increase in size from 11/09/16. Consider ultrasound-guided fine-needle aspi ration. Reviewed, dictated and finalized at location E. NICAL SUPPORT SPECIALIST IMPRESSION: 1. Left thyroid nodule with increase in size from 11/09/16. Consider ultrasound-g uided fine-needle aspiration.
== END 2023-09-24 16:17 | disposition home or self-care (01) ==
LOC: ANHIMG 16:17
PROVIDERS: PCP Nurse Practitioner Family; Visit Provider Nurse Practitioner Family
DX: R22.1 Localized swelling, mass and lump, neck (principal)
CPT/HCPCS: 76536

== ENCOUNTER 2024-01-13 17:31 | Outpatient (CLI) | payer BC, OTHER, SELFPAY ==
[2024-01-13 18:22] LABS: Albumin Level 4.2 g/dL (3.5-5.1); Anion Gap 5 mmol/L (4-12); Blood Urea Nitrogen 31 mg/dL (7-17); Carbon Dioxide 27 mmol/L (22-30); Chloride 109 mmol/L (98-107); Estimated Glomerular Filt Rate 36; Glucose 106 mg/dL (65-110); Phosphorus 3.6 mg/dL (2.5-4.5); Potassium 4.8 mmol/L (3.4-5.0); Sodium 141 mmol/L (137-145)
[2024-01-13 18:30] LABS: Creatinine Urine 256.2 mg/dL
[2024-01-13 18:34] LABS: Parathyroid Intact 207.5 pg/mL (7.5-53.5)
[2024-01-13 19:05] LABS: Vitamin D 25 Hydroxy 57.9 ng/mL
[2024-01-13 19:28] LABS: Total Protein Urine Random < 5 mg/dL; Ur Ttl Prot Creatinine Ratio < 0.02 mg/mg (0-0.20)
== END 2024-01-13 17:32 | disposition home or self-care (01) ==
LOC: ANHLAB 17:34
PROVIDERS: PCP Nurse Practitioner Family; Visit Provider Internal Medicine Nephrology
DX: I12.9 Hypertensive chronic kidney disease with stage 1 through stage 4 chronic kidney disease, or unspecified chronic kidney disease (principal); N18.32 Chronic kidney disease, stage 3b; N25.81 Secondary hyperparathyroidism of renal origin; E55.9 Vitamin D deficiency, unspecified
CPT/HCPCS: 36415; 80069; 82306; 82570; 83970; 84156

== ENCOUNTER 2024-02-18 16:33 | Observation (INO) | payer BC, OTHER, SELFPAY ==
--- NOTE | ~2024-02-18 | US_ITS ---
EXAMINATION: US renal BI DATE: 02/19/2024 11:24 INDICATION: Acute renal insufficiency TECHNIQUE: Multiple ultrasound grayscale images of the kidneys were obtained. COMPARISON: 03/22/2023 FINDINGS: The right kidney measures 10.4 x 5.0 x 4.9 cm. The left kidney measures 11.3 x 5.4 x 3.8 cm. The kidn eys demonstrate normal echogenicity. 4.9 cm anechoic simple cyst at the mid left kidney. There is no hydronephrosis in either kidney. No stones identified. The bladder is normal. IMPRESSION: 1. 4.9 cm left renal cyst. Otherwise normal kidneys without hydronephrosis. Reviewed, dictated and finalized at location A.
[2024-02-18 16:50] VITALS: BP 95/58; PULSE 73; RESP 18; TEMP 36.3; O2SAT 100
[2024-02-18 17:48] LABS: Basophils Absolute Auto 0.1 K/mm3 (0.0-0.1); Basophils Percent Auto 0.8 % (0.2-1.2); Eosinophils Absolute Auto 0.1 K/mm3 (0-0.3); Hematocrit 44.7 % (37.0-47.0); Hemoglobin 14.7 g/dL (12.0-15.0); Immature Granulocyte Absolute 0.03 K/mm3 (0.00-0.031); Immature Granulocyte Percent A 0.5 % (0-0.5); Lymphocytes Absolute Auto 1.43 K/mm3 (0.9-3.2); Lymphocytes Percent Auto 22.7 % (18.3-44.2); Mean Corpuscular HGB Conc 32.9 g/dl (32-36); Mean Corpuscular Hemoglobin 29.6 pg (26-34); Mean Corpuscular Volume 89.9 fl (80-100); Mean Platelet Volume 9.5 fl (7.4-10.4); Monocytes Absolute Auto 0.5 K/mm3 (0.1-0.6); Monocytes Percent Auto 7.6 % (2.6-8.5); Neutrophils Absolute Auto 4.3 K/mm3 (1.3-6.7); Neutrophils Percent Auto 67.4 % (45.5-73.1); Platelet Count Result 369 k/mm3 (150-375); Red Blood Count 4.97 M/mm3 (4.2-5.4); White Blood Count 6.3 K/mm3 (4.5-10.0)
[2024-02-18 18:01] VITALS: RESP 12
[2024-02-18 18:46] VITALS: BP 110/68; PULSE 76; RESP 15; O2SAT 99
[2024-02-18] MEDS: SODIUM CHLORIDE 0.9% IV 1,000 ML 999 ML IV CONT (18:47)
[2024-02-18 19:27] VITALS: BP 107/85; PULSE 74; RESP 16; O2SAT 97
[2024-02-18 20:38] LABS: Alanine Aminotransferase 50 U/L (6-35); Albumin Level 4.2 g/dL (3.5-5.1); Alkaline Phosphatase 69 U/L (38-126); Anion Gap 12 mmol/L (4-12); Aspartate Amino Transferase 38 U/L (14-36); Bilirubin,Total 0.9 mg/dL (0.2-1.3); Blood Urea Nitrogen 38 mg/dL (7-17); Carbon Dioxide 23 mmol/L (22-30); Chloride 103 mmol/L (98-107); Estimated CRCL calculation 30 ml/min; Estimated Glomerular Filt Rate 27; Glucose 101 mg/dL (65-110); Potassium 4.8 mmol/L (3.4-5.0); Sodium 138 mmol/L (137-145)
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
[2024-02-18 22:32] VITALS: BP 114/70; PULSE 77; RESP 16; O2SAT 97
--- NOTE | 2024-02-18 22:55 | PC.NURSE ---
Attempted to call report to FRANSIS[facility] Crouch and was told the RN is in room with another patient and would have to call me back in a couple of minutes.
--- NOTE | 2024-02-18 23:09 | ADMGEN ---
This patient, Jeaneth Junior, was admitted to 3 [facility] Surg Room 315-02. Patient/family oriented to hospital policies and general routines including ID bracelet, bed and alarms, visiting hours, pain management, procedures, bathroom and other care routines, personal items, smoking policy, room service/diet, and visiting hours. Information on how to activate the Rapid Response Team has been discussed. Patient/Family are encouraged to report perceived risks to care and to ask questions if they do not understand what they are told or what they should do.
[2024-02-18 23:10] VITALS: BMI 45.9
[2024-02-18 23:24] VITALS: BP 132/88; PULSE 85; RESP 20; TEMP 36.1; O2SAT 97
[2024-02-18] MEDS: SODIUM CHLORIDE 0.9% IV 1,000 ML 125 ML IV CONT (23:26)
[2024-02-19] VITALS (8 sets, daily range): BP systolic 100–112; BP diastolic 58–76; PULSE 66–80; RESP 20; TEMP 36.4–36.7; O2SAT 94–100
[2024-02-19 06:45] LABS: Anion Gap 12 mmol/L (4-12); Blood Urea Nitrogen 39 mg/dL (7-17); Calcium 8.4 mg/dL (8.4-10.2); Carbon Dioxide 21 mmol/L (22-30); Chloride 105 mmol/L (98-107); Estimated CRCL calculation 32 ml/min; Estimated Glomerular Filt Rate 28; Glucose 96 mg/dL (65-110); Sodium 138 mmol/L (137-145)
[2024-02-19] MEDS: FLUoxetine HCL 20 MG CAPSULE 40 MG PO (08:12)
[2024-02-19] MEDS: ATORVASTATIN 20 MG TABLET PO (08:13)
[2024-02-19] MEDS: OLANZapine 2.5 MG TABLET PO (08:13)
[2024-02-19] MEDS: ERGOCALCIFEROL 50,000 UNITS CAPSULE 50000 UNITS PO (08:13)
[2024-02-19] MEDS: EMPAGLIFLOZIN 10 MG TABLET PO (08:13)
[2024-02-19] MEDS: carvediloL 12.5 MG TABLET PO (08:13)
[2024-02-19] MEDS: calcitrioL 0.25 MCG CAPSULE PO (08:13)
[2024-02-19] MEDS: PANTOPRAZOLE 40 MG TABLET PO (08:13)
[2024-02-19] MEDS: hydrOXYzine pamoate 25 MG CAPSULE 50 MG PO ×2 (08:14→17:19)
[2024-02-19] MEDS: amLODIPine BESYLATE 10 MG TABLET PO (08:14)
[2024-02-19] MEDS: ursodioL 300 MG CAPSULE PO ×2 (08:14→20:37)
[2024-02-19] MEDS: ENOXAPARIN 40 MG/0.4 ML SYRINGE SUB-Q (08:14)
[2024-02-19] MEDS: SODIUM CHLORIDE 0.9% IV 1,000 ML 125 ML IV CONT (08:15)
--- NOTE | 2024-02-19 20:04 | PM.IMPN ---
Progress Note: A&P Assessment and Plan (1) Hypotension: Code(s): I95.9 - Hypotension, unspecified Status: Acute Assessment and Plan: Patient had blood pressure of 80/56 on admission. Probably related to her continuing her antihypertensive medications despite being dehydrated. Losartan/HCTZ and spironolactone has been stopped. She has been continued on her Coreg and amlodipine. Blood pressure is soft but better overall. Low blood pressure also may be related to weight loss. Will stop Norvasc. Continue Coreg. Hold prn propranolol Continue IV Fluids. Stop IV fluids after this bag is complete. (2) Acute kidney injury superimposed on CKD: Code(s): N17.9 - Acute kidney failure, unspecified; N18.9 - Chronic kidney disease, unspecified Status: Acute Assessment and Plan: Patient with CKD with creatinine runs 1.7-1.9. Creatinine 2.3 on admission probably related to poor oral intake dehydration. She was also on spironolactone, hydrochlorothiazide and losartan which could have contributed to this. No recent contrast exposure. Could also be related to low blood pressure. Creatinine is better today slightly at 2.2. She is voiding well but urine output is not measured. Potassium is normal. Bicarb was 21. Will stop IV fluids after this current IV bag. Renal ultrasound showing no acute findings. Continue to follow renal function, urine output and electrolytes. (3) Gastric bypass status for obesity: Code(s): Z98.84 - Bariatric surgery status Status: Acute Assessment and Plan: Patient is requesting her diet to be advanced despite the fact that her surgeon told her she should be on a pureed through the remainder of this week. Will continue pureed diet. (4) N&V (nausea and vomiting): Code(s): R11.2 - Nausea with vomiting, unspecified Status: Acute Assessment and Plan: Etiology unclear. Symptoms seemed to have resolved. Follow.. Stop dapagliflozin (5) Diastolic CHF: Qualifiers: Heart failure chronicity: unspecified Qualified Code(s): I50.30 - Unspecified diastolic (congestive) heart failure Code(s): I50.30 - Unspecified diastolic (congestive) heart failure Status: Acute Assessment and Plan: Patient has a history of diastolic heart failure. Appears euvolemic. Lung exam is clear. No pedal edema. Stop IV fluids after this bag is complete lungs are blood pressure is stable. (6) HTN (hypertension): Qualifiers: Hypertension type: essential hypertension Qualified Code(s): I10 - Essential (primary) hypertension Code(s): I10 - Essential (primary) hypertension Status: Acute Assessment and Plan: As above (7) Obstructive sleep apnea: Onset Date: ~10/2020 Code(s): G47.33 - Obstructive sleep apnea (adult) (pediatric) Status: Acute Assessment and Plan: Auto CPAP Plan DVT prophylaxis -Lovenox Code status -full Subjective Date/time seen: 02/19/24 20:04 Interval history: 53yo female with morbid obesity, hypertension, chronic kidney disease, recent gastric bypass surgery 1 week ago presents to the emergency room due to low blood pressure, poor per orally intake, nausea and vomiting has been regurgitating. Assuming care. Chart reviewed. No further nausea or vomiting. She is not tolerating the pureed diet. Her surgeon told her she needs to be on this pureed diet for the remainder of this week before she can be advanced to a soft diet. She is voiding normally. Passing flatus but no bowel movements. Last bowel movement was 2 days ago. No dysuria or hematuria. Exam Narrative: AF 97.8 108/76 68 20 100% ra Gen - NARD Chest - CTA bilaterally, nml RR CV - RRR S1/S2 Abd - Soft, NT/ND, Positive BS. Multiple small incisions are noted and are clean, dry and intact. Ext - No pedal edema Psych - Nml mood and affect Skin - Warm and dry Obje
[2024-02-20 06:00] VITALS: BP 118/73; PULSE 72; RESP 16; TEMP 36.8; O2SAT 99
[2024-02-20 06:28] LABS: Basophils Percent Auto 0.7 % (0.2-1.2); Eosinophils Absolute Auto 0.1 K/mm3 (0-0.3); Eosinophils Percent Auto 3.3 % (0-4.4); Hematocrit 38.3 % (37.0-47.0); Hemoglobin 12.4 g/dL (12.0-15.0); Immature Granulocyte Absolute 0.01 K/mm3 (0.00-0.031); Immature Granulocyte Percent A 0.2 % (0-0.5); Lymphocytes Absolute Auto 1.55 K/mm3 (0.9-3.2); Lymphocytes Percent Auto 36.8 % (18.3-44.2); Mean Corpuscular HGB Conc 32.4 g/dl (32-36); Mean Corpuscular Hemoglobin 29.2 pg (26-34); Mean Corpuscular Volume 90.3 fl (80-100); Mean Platelet Volume 9.6 fl (7.4-10.4); Monocytes Absolute Auto 0.4 K/mm3 (0.1-0.6); Monocytes Percent Auto 10.2 % (2.6-8.5); Neutrophils Absolute Auto 2.1 K/mm3 (1.3-6.7); Neutrophils Percent Auto 48.8 % (45.5-73.1); Platelet Count Result 319 k/mm3 (150-375); Red Blood Count 4.24 M/mm3 (4.2-5.4); Red Cell Distribution Width 12.9 % (11.5-14.5); White Blood Count 4.2 K/mm3 (4.5-10.0)
[2024-02-20 06:44] LABS: Albumin Level 3.5 g/dL (3.5-5.1); Anion Gap 9 mmol/L (4-12); Blood Urea Nitrogen 29 mg/dL (7-17); Calcium 8.8 mg/dL (8.4-10.2); Carbon Dioxide 25 mmol/L (22-30); Chloride 106 mmol/L (98-107); Estimated CRCL calculation 37 ml/min; Estimated Glomerular Filt Rate 33; Glucose 95 mg/dL (65-110); Magnesium 1.8 mg/dL (1.6-2.3); Potassium 4.4 mmol/L (3.4-5.0); Sodium 140 mmol/L (137-145)
[2024-02-20 08:00] VITALS: BP 102/54; PULSE 88; RESP 18; TEMP 36.7; O2SAT 92
[2024-02-20 08:59] LABS: Alanine Aminotransferase 47 U/L (6-35); Albumin Level 3.5 g/dL (3.5-5.1); Alkaline Phosphatase 60 U/L (38-126); Aspartate Amino Transferase 36 U/L (14-36); Bilirubin,Total 0.8 mg/dL (0.2-1.3)
[2024-02-20] MEDS: ursodioL 300 MG CAPSULE PO ×2 (09:17→20:41)
[2024-02-20] MEDS: OLANZapine 2.5 MG TABLET PO (09:17)
[2024-02-20] MEDS: ATORVASTATIN 20 MG TABLET PO (09:17)
[2024-02-20] MEDS: PANTOPRAZOLE 40 MG TABLET PO (09:17)
[2024-02-20] MEDS: ENOXAPARIN 40 MG/0.4 ML SYRINGE SUB-Q (09:17)
[2024-02-20] MEDS: carvediloL 12.5 MG TABLET PO ×2 (09:17→20:41)
[2024-02-20] MEDS: FLUoxetine HCL 20 MG CAPSULE 40 MG PO (09:17)
[2024-02-20] MEDS: hydrOXYzine pamoate 25 MG CAPSULE 50 MG PO ×2 (09:18→16:41)
--- NOTE | 2024-02-20 12:45 | PM.IMPN ---
Progress Note: A&P Assessment and Plan (1) Hypotension: Code(s): I95.9 - Hypotension, unspecified Status: Acute Assessment and Plan: Patient had blood pressure of 80/56 on admission. Probably related to her continuing her antihypertensive medications despite being dehydrated. Losartan/HCTZ and spironolactone have been stopped. She was continued on Coreg and amlodipine but BP remained soft so amlodipine stopped as well. Low blood pressure also may be related to weight loss. Continue Coreg. Continue to hold prn propranolol Off IV Fluids and BP stable. Follow. (2) Gastric bypass status for obesity: Code(s): Z98.84 - Bariatric surgery status Status: Acute Assessment and Plan: Patient was requesting her diet to be advanced despite the fact that her surgeon told her she should be on a pureed through the remainder of this week. Educated her about the need to adhere to her surgeon's instructions. Now having food sticking sensation after eating eggs. Could be psychosomatic or possible esophageal stricture or to tight at the GE junction. GI consult. NPO for now. (3) Acute kidney injury superimposed on CKD: Code(s): N17.9 - Acute kidney failure, unspecified; N18.9 - Chronic kidney disease, unspecified Status: Acute Assessment and Plan: Patient with CKD with creatinine runs 1.7-1.9. Creatinine 2.3 on admission probably related to poor oral intake dehydration. She was also on spironolactone, hydrochlorothiazide and losartan which could have contributed to this. No recent contrast exposure. Could also be related to low blood pressure. Creatinine is better today at 1.9. She is voiding well. Potassium and bicarb are normal. Renal ultrasound showing no acute findings. Continue to follow renal function, urine output and electrolytes. (4) N&V (nausea and vomiting): Code(s): R11.2 - Nausea with vomiting, unspecified Status: Acute Assessment and Plan: Etiology unclear. Symptoms seemed to have resolved. Follow. (5) Diastolic CHF: Qualifiers: Heart failure chronicity: unspecified Qualified Code(s): I50.30 - Unspecified diastolic (congestive) heart failure Code(s): I50.30 - Unspecified diastolic (congestive) heart failure Status: Acute Assessment and Plan: Patient has a history of diastolic heart failure. Appears euvolemic. Lungs remain clear. No pedal edema. Off IV fluids currently. (6) HTN (hypertension): Qualifiers: Hypertension type: essential hypertension Qualified Code(s): I10 - Essential (primary) hypertension Code(s): I10 - Essential (primary) hypertension Status: Acute Assessment and Plan: As above (7) Obstructive sleep apnea: Onset Date: ~10/2020 Code(s): G47.33 - Obstructive sleep apnea (adult) (pediatric) Status: Acute Assessment and Plan: Auto CPAP Plan DVT prophylaxis -Lovenox Code status -full Subjective Date/time seen: 02/20/24 12:45 Interval history: 53yo female with morbid obesity, hypertension, chronic kidney disease, recent gastric bypass surgery 1 week ago presents to the emergency room due to low blood pressure, poor oral intake, nausea and vomiting with regurgitating. Patient this morning feels like she has food 'stuck' in her esophagus and points to her mid-chest. She had eggs this morning. She remains on a pureed diet through the remainder of this week per her surgeon. Nausea but no vomiting. Drinking water seemed to make this worse. Flatus but no BMs. Exam Narrative: AF 98.0 102/54 88 18 92% ra Gen - NARD Chest - CTA bilaterally, nml RR CV - RRR S1/S2 Abd - Soft, NT/ND, Positive BS. Multiple small incisions are noted and are clean, dry and intact. Ext - No pedal edema Psych - sad mood and affect Skin - Warm and dry Objective Data Vital Signs Vital Signs: Vital Signs - 24 hr 0
[2024-02-20 14:00] VITALS: PULSE 82; RESP 18; TEMP 36.7; O2SAT 96
[2024-02-20 16:00] VITALS: BP 120/68; PULSE 87; RESP 18; TEMP 36.7; O2SAT 96
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
[2024-02-20 20:41] VITALS: PULSE 82
[2024-02-20 22:00] VITALS: BP 92/77; PULSE 87; RESP 20; TEMP 35.9; O2SAT 100
[2024-02-21 00:28] VITALS: BP 105/63
[2024-02-21 06:00] VITALS: BP 103/61; PULSE 65; RESP 18; TEMP 35.9; O2SAT 97
[2024-02-21 06:37] LABS: Albumin Level 3.5 g/dL (3.5-5.1); Anion Gap 10 mmol/L (4-12); Blood Urea Nitrogen 25 mg/dL (7-17); Calcium 8.8 mg/dL (8.4-10.2); Carbon Dioxide 22 mmol/L (22-30); Chloride 104 mmol/L (98-107); Estimated CRCL calculation 41 ml/min; Estimated Glomerular Filt Rate 38; Glucose 96 mg/dL (65-110); Phosphorus 4.2 mg/dL (2.5-4.5); Potassium 4.2 mmol/L (3.4-5.0); Sodium 136 mmol/L (137-145)
--- NOTE | 2024-02-21 07:17 | WPDGIPROGNO ---
Progress Note: A&P Assessment and Plan (1) N&V (nausea and vomiting): Code(s): R11.2 - Nausea with vomiting, unspecified Status: Acute Assessment and Plan: improved recent bariatric surgery, definitely playing a role on symptom continue with antiemetic, iv protonix and eat small portions at time no need of egd now will need follow-up with her bariatric surgeon (2) Regurgitation of food: Code(s): R11.10 - Vomiting, unspecified Status: Acute (3) Acute kidney injury superimposed on CKD: Code(s): N17.9 - Acute kidney failure, unspecified; N18.9 - Chronic kidney disease, unspecified Status: Acute Assessment and Plan: improving, creatining back to her baseline 1.7 (4) Gastric bypass status for obesity: Code(s): Z98.84 - Bariatric surgery status Status: Acute (5) Morbid obesity with BMI of 40.0-44.9, adult: Code(s): E66.01 - Morbid (severe) obesity due to excess calories; Z68.41 - Body mass index [BMI] 40.0-44.9, adult Status: Acute (6) HTN (hypertension): Qualifiers: Hypertension type: essential hypertension Qualified Code(s): I10 - Essential (primary) hypertension Code(s): I10 - Essential (primary) hypertension Status: Acute Subjective Date/time seen: 02/21/24 07:18 Interval history: she is feeling better this morning, had pretzels and able to hold down Review of Systems Review of Systems: All systems reviewed & are unremarkable except as noted in HPI and below Exam Const: General: comfortable and no acute distress Other: obese HENMT: Face/Nose/Sinus: Normal nares present Eyes: General: appearance normal, both eyes and all related structures Neck: Neck: supple Resp: Auscultation: clear to auscultation bilaterally Cardio: Rate: regular rate Rhythm: regular rhythm GI: Inspection: non-distended GI Palp: Yes Soft to palpation and No Tenderness to palpation present (GI) Auscultation: normal bowel sounds Other: clean incisions Skin: General skin exam: normal color Neuro: Speech: normal speech Motor exam (neuro): 5/5 motor strength present throughout Extrem: General: normal to inspection Psych: Mental Status: mental status grossly normal Objective Data Vital Signs Vital Signs: Vital Signs - 24 hr 07/18/24 08:00 02/20/24 08:00 02/20/24 14:00 Temperature 98.0 F 98.0 F Pulse Rate 88 88 82 Respiratory Rate 18 18 18 Blood Pressure 102/54 L Pulse Oximetry 92 92 96 Oxygen Delivery Room Air 02/20/24 16:00 02/20/24 20:41 02/20/24 20:00 Temperature 98.0 F Pulse Rate 87 82 Respiratory Rate 18 Blood Pressure 120/68 Pulse Oximetry 96 Oxygen Delivery Room Air 02/20/24 22:00 02/21/24 00:28 02/21/24 06:00 Temperature 96.6 F L 96.6 F L Pulse Rate 87 65 Respiratory Rate 20 18 Blood Pressure 92/77 L 105/63 103/61 Pulse Oximetry 100 97 Oxygen Delivery Intake/Output Intake/Output: Intake & Output 02/18/24 02/19/24 02/20/24 02/21/24 23:59 23:59 23:59 23:59 Intake Total 1000 1951 1720 480 Balance 1000 1951 1720 480 Meds/Results Medications: Active Medications Generic Name Dose Route Start Last Admin Trade Name Freq PRN Reason Stop Dose Admin Acetaminophen 650 mg 02/18/24 21:42 Acetaminophen 325 Mg Tablet PO Q4H PRN Mild Pain (1-3) or Fever Albuterol 1 puff 02/19/24 01:12 Albuterol Sulfate (*Sp) Aerosol 1 Puff INHALATION Q4HRT PRN Shortness Of Breath Or Wheezing Atorvastatin Calcium 20 mg 02/19/24 09:00 02/20/24 09:17 Atorvastatin 20 Mg Tablet PO 20 mg DAILY MARGA Administration Calcitriol 0.25 mcg 02/19/24 09:00 02/19/24 08:13 Calcitriol 0.25 Mcg Capsule PO 0.25 mcg MoWeFr@0900 [facility] Administration Carvedilol 6.25 mg 02/21/24 09:00 Carvedilol 6.25 Mg Tablet PO Q12HR [facility] Enoxaparin Sodium 40 mg 02/19/24 09:00 02/20/24 09:17 Enoxaparin 40 Mg/0.4 Ml Syringe SUB-Q
[2024-02-21] MEDS: hydrOXYzine pamoate 25 MG CAPSULE 50 MG PO (08:14)
[2024-02-21] MEDS: FLUoxetine HCL 20 MG CAPSULE 40 MG PO (08:14)
[2024-02-21] MEDS: ATORVASTATIN 20 MG TABLET PO (08:14)
[2024-02-21] MEDS: ursodioL 300 MG CAPSULE PO (08:14)
[2024-02-21] MEDS: PANTOPRAZOLE 40 MG TABLET PO (08:14)
[2024-02-21 08:20] VITALS: BP 116/81
[2024-02-21 08:21] VITALS: PULSE 61
[2024-02-21] MEDS: calcitrioL 0.25 MCG CAPSULE PO (08:21)
[2024-02-21] MEDS: carvediloL 6.25 MG TABLET PO (08:21)
--- NOTE | 2024-02-21 10:10 | PM.DS ---
DS: Admitting Diagnosis Discharge Date 02/21/24 Admitting Diagnosis Low blood pressure DS: Discharge Diagnosis Discharge Diagnosis (1) Hypotension: Code(s): I95.9 - Hypotension, unspecified Status: Acute (2) Gastric bypass status for obesity: Code(s): Z98.84 - Bariatric surgery status Status: Acute (3) Acute kidney injury superimposed on CKD: Code(s): N17.9 - Acute kidney failure, unspecified; N18.9 - Chronic kidney disease, unspecified Status: Acute (4) N&V (nausea and vomiting): Code(s): R11.2 - Nausea with vomiting, unspecified Status: Acute (5) Diastolic CHF: Qualifiers: Heart failure chronicity: unspecified Qualified Code(s): I50.30 - Unspecified diastolic (congestive) heart failure Code(s): I50.30 - Unspecified diastolic (congestive) heart failure Status: Acute (6) HTN (hypertension): Qualifiers: Hypertension type: essential hypertension Qualified Code(s): I10 - Essential (primary) hypertension Code(s): I10 - Essential (primary) hypertension Status: Acute (7) Obstructive sleep apnea: Onset Date: ~10/2020 Code(s): G47.33 - Obstructive sleep apnea (adult) (pediatric) Status: Acute DS: Summary Hospital Course Reason for hospitalization: 53yo female with morbid obesity, hypertension, chronic kidney disease, recent gastric bypass surgery 1 week ago presents to the emergency room due to low blood pressure, poor oral intake, nausea and vomiting with regurgitating. Please see H&P for details. Hospital Course: Patient had blood pressure of 80/56 on admission. Probably related to her continuing her antihypertensive medications despite being dehydrated. Low blood pressure also may be related to weight loss. Losartan/HCTZ and spironolactone were stopped. She was initially continued on her Coreg and amlodipine but blood pressure remained soft so amlodipine was stopped and Coreg dose was halved. She was treated with IV fluids which she tolerated well without evidence of CHF exacerbation. Patient with CKD with creatinine runs 1.7-1.9. She had IGGY with creatinine 2.3 on admission probably related to poor oral intake and dehydration. She was also on spironolactone, hydrochlorothiazide and losartan which could have contributed to this. No recent contrast exposure. Could also be related to low blood pressure. Creatinine is better today at 1.7. She is voiding well. Potassium is normal. Bicarb is normal. Renal ultrasound showing no acute findings. Patient had a recent gastric bypass elsewhere. She was requesting her diet to be advanced despite the fact that her surgeon told her she should be on a pureed through the remainder of this week. We declined the request and kept her on a pureed diet. She was educated about the need to adhere to her surgeon's instructions. Patient has a history of diastolic heart failure. She remained euvolemic. She had symptoms of having food sticking sensation after eating eggs. Could be psychosomatic or possible esophageal stricture or to tight at the GE junction. GI consulted. This was managed conservatively and her symptoms resolved. She is eating and tolerating it well. She overall did well and was able to be discharged on 02/21/24. Status at Discharge Cognitive/behavioral status at discharge: Stable Time Spent with Patient Time attestation: Total time spent providing and/or coordinating discharge services: 35 minutes Time spent: Greater than 30 minutes Exam Narrative: AF 96.6 116/81 61 18 97% ra Gen - NARD Chest - CTA bilaterally, nml RR CV - RRR S1/S2 Abd - Soft, NT/ND, Positive BS. Multiple small incisions are noted and are clean, dry and intact. Ext - No pedal edema Psych - normal mood. in good spirits today Skin - Warm and dry DS: Data Data Completed and Pending Labs on day of discharge: Labs from last 24 hours 02/21/24 05:59 [place]
== END 2024-02-21 12:30 | disposition home or self-care (01) ==
LOC: ANHED 20:59 → ANH3MEDSUR 02-20 11:09
PROVIDERS: Admitting Provider Internal Medicine; Emergency Provider Family Medicine; PCP Internal Medicine; Visit Provider Internal Medicine
DX: N17.9 Acute kidney failure, unspecified (principal); I95.9 Hypotension, unspecified; Z98.84 Bariatric surgery status; I13.0 Hypertensive heart and chronic kidney disease with heart failure and stage 1 through stage 4 chronic kidney disease, or unspecified chronic kidney disease; I50.30 Unspecified diastolic (congestive) heart failure; N18.9 Chronic kidney disease, unspecified; R11.2 Nausea with vomiting, unspecified; F41.9 Anxiety disorder, unspecified; F32.A Depression, unspecified; G47.33 Obstructive sleep apnea (adult) (pediatric); Z79.51 Long term (current) use of inhaled steroids; E66.01 Morbid (severe) obesity due to excess calories; Z68.42 Body mass index [BMI] 45.0-49.9, adult
CPT/HCPCS: 36415; 76775; 80048; 80053; 80069; 80076; 83735; 85025; 96360; 96361; 96372; 99285; A9270; G0378; J1650; J7030

== ENCOUNTER 2024-03-02 10:23 | Emergency (ER) | payer BC, OTHER, SELFPAY ==
[2024-03-02] VITALS (21 sets, daily range): BP systolic 106–149; BP diastolic 24–118; PULSE 94–123; RESP 9–29; TEMP 36.6; O2SAT 95–100
--- NOTE | ~2024-03-02 | XR_ITS ---
EXAMINATION: XR chest 2V DATE: 03/02/2024 16:22 INDICATION: Shortness of breath, nausea and vomiting TECHNIQUE: PA and lateral views of the chest were obtained. COMPARISON: Chest radiograph dated 11/12/19 FINDINGS: Unchanged mild elevation the left hemidiaphragm. No focal airspace opacities, pulmonary edema, pleura l effusion or pneumothorax. The cardiomediastinal silhouette is normal. Surgical clips at the left ax illa. Cholecystectomy clips in right upper quadrant. IMPRESSION: 1. No acute cardiopulmonary disease. Reviewed, dictated and finalized at location A.
--- NOTE | ~2024-03-02 | CT_ITS ---
CT abdomen pelvis w con Ordering provider: Jenny Amador PA-C History: 53 years Female with . recent gastric bypass, N/V . Comparison: None. Technique: CT abdomen and pelvis with IV and without oral contrast. Automated exposure control and it erative reconstruction technique were employed. The dose-length product was 1486.82 mGy-cm. 100 ML of Omnipaque 350 was given IV. Findings: VISUALIZED LOWER CHEST: Dependent atelectatic changes. UPPER ABDOMINAL ORGANS: Liver: Tiny cyst in the right lobe of the liver. Gallbladder: Normal. Spleen: Normal. Stomach/duodenum: Sliding hiatus hernia with fluid content which may indicate reflux. Dilated small bowel loops in the area of the surgery with normal caliber of the bowel distal to this loop. Possible Rotation at the junction of the dilated bowel loop with the distal small bowel is seen . Pancreas: Normal. Adrenals: Right adrenal adenoma measuring 0.9 cm. Left adrenal adenoma measuring 2.9 cm. Kidneys: A cyst in the left kidney midpole measuring 4.5 cm. Tiny cyst in the left kidney lower pole and the right kidney upper pole. PELVIC ORGANS: The bladder is underfilled. Uterus: Normal. BOWEL AND MESENTERY: Colon: No evidence of diverticulitis. Normal appendix. Small Bowel: Normal. No obstruction. Peritoneum/mesentery: No free air or free fluid. No mesenteric lymphadenopathy. RETROPERITONEUM: Mild atheromatous disease of the abdominal aorta. No retroperitoneal lymphadenopat hy. MUSCULOSKELETAL: Superficial soft tissues: Fat containing umbilical hernia. The superficial soft tissues are normal. Bones: Age appropriate degenerative changes of the spine. IMPRESSION: 1. Dilated small bowel loops at the site of surgery with possible rotation at the junction with the distal bowel. Clinical correlation advised 2. No free air or collection seen in the area. Reviewed, dictated and finalized at location A.
--- NOTE | 2024-03-02 10:39 | PC.NURSE ---
vascular access called for IV and blood work on patient. provider aware
[2024-03-02 11:32] LABS: Basophils Percent Auto 0.4 % (0.2-1.2); Eosinophils Percent Auto 0.7 % (0-4.4); Hematocrit 47.4 % (37.0-47.0); Immature Granulocyte Absolute 0.02 K/mm3 (0.00-0.031); Immature Granulocyte Percent A 0.4 % (0-0.5); Lymphocytes Percent Auto 29.1 % (18.3-44.2); Mean Corpuscular HGB Conc 33.8 g/dl (32-36); Mean Corpuscular Hemoglobin 29.6 pg (26-34); Mean Corpuscular Volume 87.6 fl (80-100); Mean Platelet Volume 10.1 fl (7.4-10.4); Monocytes Absolute Auto 0.6 K/mm3 (0.1-0.6); Monocytes Percent Auto 10.2 % (2.6-8.5); Neutrophils Absolute Auto 3.3 K/mm3 (1.3-6.7); Neutrophils Percent Auto 59.2 % (45.5-73.1); Platelet Count Result 347 k/mm3 (150-375); Red Blood Count 5.41 M/mm3 (4.2-5.4); Red Cell Distribution Width 13.2 % (11.5-14.5); White Blood Count 5.5 K/mm3 (4.5-10.0)
[2024-03-02] MEDS: ONDANSETRON INJ 4 MG/2 ML VIAL IV PUSH ×3 (11:45→23:53)
[2024-03-02] MEDS: SODIUM CHLORIDE 0.9% IV 1,000 ML 999 ML IV CONT ×3 (11:45→18:40)
[2024-03-02 11:46] LABS: Lactic Acid Reflex 1.9 mmol/L (0.7-2.0)
[2024-03-02 11:53] LABS: Alanine Aminotransferase 35 U/L (6-35); Albumin Level 4.7 g/dL (3.5-5.1); Alkaline Phosphatase 78 U/L (38-126); Anion Gap 17 mmol/L (4-12); Aspartate Amino Transferase 32 U/L (14-36); Blood Urea Nitrogen 38 mg/dL (7-17); Calcium 9.2 mg/dL (8.4-10.2); Carbon Dioxide 20 mmol/L (22-30); Chloride 101 mmol/L (98-107); Estimated CRCL calculation 32 ml/min; Estimated Glomerular Filt Rate 30; Glucose 118 mg/dL (65-110); Lipase 245 U/L (23-300); Magnesium 1.7 mg/dL (1.6-2.3); Sodium 138 mmol/L (137-145)
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
[2024-03-02] MEDS: METOCLOPRAMIDE HCL INJ 10 MG/2 ML VIAL IV PUSH (15:49)
[2024-03-02] MEDS: diphenhydrAMINE HCl INJ 50 MG/ML VIAL 25 MG IV PUSH (15:49)
--- NOTE | 2024-03-02 16:01 | ECG_ITS ---
Test Date: 2024-03-02 16:52:39 Measurements Intervals [place] Rate: 90 P: 42 RI: 140 QRS: -14 QRSD: 96 T: 56 QT: 367 QTc: 450 Interpretive Statements SINUS RHYTHM INCOMPLETE RIGHT BUNDLE BRANCH BLOCK MODERATE T-WAVE ABNORMALITY, CONSIDER ANTERIOR ISCHEMIA BASELINE ARTIFACT- I, II, AVR, AVL, AVF, V1 ABNORMAL ECG No previous ECG available for comparison Electronically Signed On 03-02-2024 19:41:01 CDT by Kayden Knapp D.O.
[2024-03-02] MEDS: FAMOTIDINE 20 MG/2 ML VIAL IV PUSH ×2 (16:15→20:52)
[2024-03-02 17:46] LABS: Appearance Urine Clear (Clear); Bacteria Urine 1+ /hpf; Bilirubin Urine Negative (Negative); Blood Urine Negative (Negative); Color Urine Yellow (Yellow); Glucose Urine UA Negative (Negative); Hyaline Casts Urine Present /lpf; Ketones Urine 1+ mg/dL (Negative); Leukocyte Esterase Ur Negative LEU/UL (Negative); Nitrate Urine Negative (Negative); Protein Urine Trace mg/dL (Negative); Specific Grav Ur > 1.045 (1.001-1.035); Squamous Epithelial Cell Urine Few /hpf (Few)
[2024-03-02 17:48] LABS: Add Urine Microscopic? YES
[2024-03-02 18:55] LABS: Anion Gap 19 mmol/L (4-12); Blood Urea Nitrogen 33 mg/dL (7-17); Carbon Dioxide 15 mmol/L (22-30); Chloride 105 mmol/L (98-107); Estimated CRCL calculation 37 ml/min; Estimated Glomerular Filt Rate 36; Glucose 99 mg/dL (65-110); Potassium 4.4 mmol/L (3.4-5.0); Sodium 139 mmol/L (137-145)
[2024-03-02 19:09] LABS: Troponin I < 0.012 ng/mL (0.000-0.034)
--- NOTE | 2024-03-02 19:42 | PC.NURSE ---
Assumed care of pt from FRANSISCA Nieto at this time.
[2024-03-02] MEDS: SODIUM CHLORIDE 0.9% IV 1,000 ML 125 ML IV CONT (20:50)
--- NOTE | 2024-03-02 23:30 | PC.NURSE ---
Pt moved from stretcher to hospital bed.
--- NOTE | 2024-03-02 23:34 | PC.NURSE ---
2/3 night meds ordered by this RN. CECILIA Kingsley orders. This RN ordered hydroxyzine 50mg PO and Carvedilol 6.25mg PO.
[2024-03-02] MEDS: carvediloL 6.25 MG TABLET PO (23:50)
[2024-03-02] MEDS: hydrOXYzine HCL 25 MG TABLET 50 MG PO (23:50)
[2024-03-02] MEDS: OLANZapine 2.5 MG TABLET PO (23:50)
[2024-03-03] VITALS (63 sets, daily range): BP systolic 106–152; BP diastolic 60–99; PULSE 79–97; RESP 12–21; TEMP 36.6; O2SAT 94–100
[2024-03-03] MEDS: ONDANSETRON INJ 4 MG/2 ML VIAL IV PUSH ×3 (05:03→18:06)
[2024-03-03] MEDS: SODIUM CHLORIDE 0.9% IV 1,000 ML 125 ML IV CONT ×2 (05:03→13:11)
[2024-03-03] MEDS: FAMOTIDINE 20 MG/2 ML VIAL IV PUSH (09:09)
--- NOTE | 2024-03-03 09:22 | PC.NURSE ---
0915 Spoke with Jeaneth from [facility] transfer center and gave update on pts vitals.
[2024-03-03] MEDS: carvediloL 6.25 MG TABLET PO (11:11)
[2024-03-03] MEDS: ATORVASTATIN 20 MG TABLET PO (11:12)
[2024-03-03] MEDS: ursodioL 300 MG CAPSULE PO (11:12)
[2024-03-03] MEDS: hydrOXYzine pamoate 25 MG CAPSULE 50 MG PO ×2 (11:12→19:31)
[2024-03-03] MEDS: amLODIPine BESYLATE 10 MG TABLET PO (11:12)
[2024-03-03] MEDS: FLUoxetine HCL 20 MG CAPSULE PO (11:12)
--- NOTE | 2024-03-03 15:33 | PC.NURSE ---
Clear liquid diet tray ordered for pt.
--- NOTE | 2024-03-03 18:02 | PC.NURSE ---
1715 Spoke with Jeaneth from the [facility] transfer center who states the pt got a bed at [facility]. Pt will be going to room 4911.
--- NOTE | 2024-03-03 18:14 | PC.NURSE ---
Spoke with Madhav from pharmacy to get pts 1700 and 2100 medications tubed to the ED.
[2024-03-03] MEDS: MORPHINE SULFATE (*CRX) 4 MG/ML INJ IV PUSH (19:31)
== END 2024-03-03 19:51 | disposition short-term general hospital (02) ==
PROVIDERS: Emergency Provider Physician Assistant; PCP Internal Medicine
DX: N17.9 Acute kidney failure, unspecified (principal); K95.89 Other complications of other bariatric procedure; K56.2 Volvulus; E86.0 Dehydration; R11.2 Nausea with vomiting, unspecified; I10 Essential (primary) hypertension; K58.9 Irritable bowel syndrome, unspecified; F41.9 Anxiety disorder, unspecified; F32.A Depression, unspecified; R82.90 Unspecified abnormal findings in urine; Z79.899 Other long term (current) drug therapy; X58.XXXA Exposure to other specified factors, initial encounter; Y83.2 Surgical operation with anastomosis, bypass or graft as the cause of abnormal reaction of the patient, or of later complication, without mention of misadventure at the time of the procedure
CPT/HCPCS: 36415; 71046; 74177; 80048; 80053; 81001; 83605; 83690; 83735; 84484; 85025; 87086; 93005; 96361; 96374; 96375; 96376; 99285; A9270; J1200; J2270; J2405; J2765; J7030; Q9967

== ENCOUNTER 2024-05-11 17:32 | Outpatient (CLI) | payer BC, OTHER, SELFPAY ==
[2024-05-11 18:41] LABS: Total Protein Urine Random 12 mg/dL
[2024-05-11 18:42] LABS: Anion Gap 7 mmol/L (4-12); Blood Urea Nitrogen 23 mg/dL (7-17); Calcium 9.1 mg/dL (8.4-10.2); Carbon Dioxide 28 mmol/L (22-30); Chloride 106 mmol/L (98-107); Estimated Glomerular Filt Rate 44; Glucose 101 mg/dL (65-110); Phosphorus 3.4 mg/dL (2.5-4.5); Potassium 3.4 mmol/L (3.4-5.0); Sodium 141 mmol/L (137-145)
[2024-05-11 18:48] LABS: Parathyroid Intact 147.1 pg/mL (14.5-75.2)
[2024-05-11 19:05] LABS: Creatinine Urine > 693.0 mg/dL
[2024-05-11 22:20] LABS: Ur Ttl Prot Creatinine Ratio > 0.00 mg/mg (0-0.20)
== END 2024-05-11 17:33 | disposition home or self-care (01) ==
LOC: ANHLAB 17:34
PROVIDERS: PCP Internal Medicine; Visit Provider Internal Medicine Nephrology
DX: I12.9 Hypertensive chronic kidney disease with stage 1 through stage 4 chronic kidney disease, or unspecified chronic kidney disease (principal); N18.32 Chronic kidney disease, stage 3b; N25.81 Secondary hyperparathyroidism of renal origin
CPT/HCPCS: 36415; 80069; 82570; 83970; 84156

== ENCOUNTER 2024-07-08 12:44 | Outpatient (CLI) | payer BC, OTHER, SELFPAY ==
--- NOTE | ~2024-07-08 | US_ITS ---
EXAMINATION: US FNA w image guidance DATE: 07/08/2024 14:01 INDICATION: Thyroid nodule. TECHNIQUE: The procedure and its benefits and risks were discussed with the patient. Risks specifically discusse d included bleeding. The patient verbalized understanding of the risks and agreed to proceed. The nec k was prepped and draped in the usual sterile manner. 1% lidocaine was used for local anesthesia. 8 passes were made with a 25G needle into the lesion under ultrasound guidance. There were no immedia te complications. FINDINGS: Grayscale ultrasound images demonstrate needles advanced into a 7.2 cm nodule in left thyroid lobe fo r biopsy. IMPRESSION: 1. Ultrasound-guided fine needle aspiration of a left thyroid nodule. Reviewed, dictated and finalized at location A. STIC DIRECTOR
== END 2024-07-08 12:45 | disposition home or self-care (01) ==
LOC: ANHIMG 12:46
PROVIDERS: PCP Internal Medicine; Visit Provider Internal Medicine
DX: E04.1 Nontoxic single thyroid nodule (principal)
CPT/HCPCS: 10005; 88172; 88173; 88177; 88305

== ENCOUNTER 2024-09-03 08:48 | Outpatient (CLI) | payer BC, OTHER, SELFPAY ==
--- NOTE | ~2024-09-03 | MM_ITS ---
EXAMINATION: MM screening navneet BI w anabel HISTORY: Screening TECHNIQUE: Craniocaudal and mediolateral oblique 3-D tomosynthesis images were obtained and synthetic 2-D images were generated. CAD analysis was submitted and interpreted. COMPARISON: No prior mammogram is available for comparison at this institution. BREAST PARENCHYMAL COMPOSITION: Not dense: There are scattered areas of fibroglandular density. FINDINGS: There is no evidence of suspicious mass, calcification, or architectural distortion to sugg est malignancy in either breast. There has been no suspicious interval change. IMPRESSION: 1. No mammographic evidence of malignancy. 2. Recommend routine screening mammography in one year. BI-RADS Category 1: Negative Reviewed, dictated and finalized at location A. RIDER
== END 2024-09-03 08:49 | disposition home or self-care (01) ==
LOC: ANHIMG 08:50
PROVIDERS: PCP Internal Medicine; Visit Provider Obstetrics & Gynecology
DX: Z12.31 Encounter for screening mammogram for malignant neoplasm of breast (principal)
CPT/HCPCS: 77063; 77067

== ENCOUNTER 2025-01-11 17:42 | Outpatient (CLI) | payer BC, OTHER, SELFPAY ==
--- OUTSIDE RECORDS SUMMARY | 2025-01-11 17:45 | XMS_ITS | Clinical Summary ---
Author Organization [facility] Address [address] [place] [address] Care Team Providers Care Beauty Consultant Name Role Phone Antonio Dalton MD Primary Care Provider [phone] Source Comments [facility],non-owned Affiliates and Associated Physician Practices is amultiple site organization consisting of ambulatory clinics and hospital sitesin [place], [place], [place] and [place]. This disclosure is being madepursuant to the Care Everywhere program and may not contain all information available regarding this patient. Last updated 18.[facility] Allergies Active Allergy Reactions Criticality Noted Date Comments Bupropion Nausea and/or Vomiting Low 01/21/2013 Visual distortions, nausea, headache Latex Rash Medium 09/22/2009 Penicillins Urticaria Medium 06/20/2009 Sulfa Drugs Urticaria Medium 06/20/2009 Medications * This document contains information received from the source organization and may not represent a complete record from that organization. * Be aware that medications may not be up to date on this document. Alwaysverify current medications with the patient. loratadine (CLARITIN) 10 MG tablet Take 10 mg by mouth 7 Active naproxen (NAPROSYN) 500 MG tablet TAKE ONE TABLET BY MOUTH TWICE DAILY WITH MEALS 7 Active saccharomyces (FLORASTOR) 250 MG capsuleIndicatio ns:Irritable bowel syndrome with constipation Take 1 capsule by mouth once daily 8 Active Additional Information Patient not taking.Reported on 12/25/2018 cyclobenzaprine (FLEXERIL) 5 MG tablet Take 1 tablet by mouth 3 times daily as needed 60 tablet 8 Active methocarbamol (ROBAXIN) 750 MG tablet TAKE 1 TO 2 TABLETS BY MOUTH THREE TIMES DAILY NEEDED 120 tablet 9 Active hydrOXYzine hcl (ATARAX) 25 MG tabletIndication s:Anxiety Take 1 tablet by mouth 4 times daily as needed for Itching Reasons: Feeling Anxious 30 tablet 9 Active COMBIVENT RESPIMAT 20-100 MCG/ACT inhaler 0 Active budesonide-formo terol (SYMBICORT) 80-4.5 MCG/ACT inhaler Inhale 2 puffs by mouth 2 times daily 1 Inhaler 3 0 Active VENTOLIN HFA 108 (90 Base) MCG/ACT inhaler Inhale 2 puffs by mouth every 6 hours as needed 1 Inhaler 3 0 Active FLUoxetine (PROZAC) 20 MG capsule Take 1 capsule by mouth once daily 90 capsule 0 Active lisinopril-hydro CHLOROthiazide (PRINZIDE; ZESTORETIC) 20-12.5 MG tablet Take 2 tablets by mouth once daily 60 tablet 3 0 Active amLODIPine (NORVASC) 10 MG tablet Take 1 tablet by mouth once daily 90 tablet 0 Active carvedilol (COREG) 12.5 MG tablet Take 1 tablet by mouth twice daily 180 tablet 0 Active spironolactone (ALDACTONE) 25 MG tablet Take 1 tablet by mouth once daily 30 tablet 3 0 Active traZODone (DESYREL) 50 MG tablet TAKE 1 TABLET BY MOUTH AT BEDTIME 30 tablet 3 0 Active propranolol (INDERAL) 10 MG tablet TAKE 1 TABLET BY MOUTH 4 TIMES DAILY NEEDED FOR HIGH BLOOD PRESSURE 60 tablet 5 0 Active fluticasone propionate (FLONASE) 50 MCG/ACT nasal sprayIndications :Rhinosinusitis Use 2 spray(s) in each nostril once daily 16 g 5 0 Active Active Problems Problem Noted Date Diagnosed Date Irritable bowel syndrome with constipation 10/24 Assessment & Plan (01/23/2018 2:38 PM CDT): Discussed bowel management with consistent fiber diet, minimizing triggering foods. Use Florastor or similar. Primary insomnia 10/24/2016 Bilateral low back pain without sciatica 015 Assessment & Plan (01/23/2018 2:35 PM CDT): Never made it to PT. Will reenter referral today. Prediabetes 09/12/2012 Assessment & Plan (09/26/2018 11:25 AM HEALTH AND WELLNESS INSTRUCTOR): A1c now below prediabetic range. Encouraged continued attention to diet and recommended increased physical activity. Assessment & Plan (04/18/2018 11:02 AM CDT): Congratulated on exercise program, although the transient muscle soreness may limit intensity. Continue this. Labs as ordered. BMI 40.0-44.9, adult 02/02/2010 Assessment & Plan (01/23/2018 2:34 PM CDT): Discussed options. Would like to consider going beyond current attempts at diet/exercise. Anxiety 08/13/2009 Depression 08/13/2009 Assessment & Plan (09/26/2018 11:26 AM HEALTH AND WELLNESS INSTRUCTOR): Currently well controlled. Continue current Rx. Assessment & Plan (04/18/2018 11:05 AM CDT): Doing better with improvement in job situation. Continue current Rx. If remains well at next visit, could look to extend visit interval. Assessment & Plan (01/23/2018 2:34 PM CDT): Controlled. Continue current Rx. Hypertension 08/13/2009 Assessment & Plan (09/26/2018 11:26 AM HEALTH AND WELLNESS INSTRUCTOR): BP slightly elevated, but without meds past two days. Reminded of importance of taking medications regularly (especially carvedilol to prevent rebound HTN). Assessment & Plan (04/18/2018 11:05 AM CDT): BP nominally controlled today; would expect continued improvement with continued exercise. Assessment & Plan (01/23/2018 2:35 PM CDT): BP well controlled. Continue current Rx. Resolved Problems Problem Noted Date Diagnosed Date Resolved Date Rhinitis 12/24/2013 11/17/2019 Immunizations Immunization Administration Dates Next Due INFLUENZA VACCINE, TRIV. (AF LURIA, FLUZONE TRIVALENT; 6MO+) (IIV3) 06/25/2016,06/28/2015,06/05/2009 HepB Unspecified formulation 07/05/2007 INFLUENZA A [id number] VACCINE 06/05/2009 INFLUENZA VACCINE 05/21/2018, 4,05/08/2013,2010 TDAP (7yrs+) 08/30/2016 TETANUS 07/05/2007 Social History Tobacco Use Types Packs/Day Years Used Date Smoking Tobacco: Never Smokeless Tobacco: Never Alcohol Use Standard Drinks/Week Comments Yes 0 (1 standard drink = 0.6 oz pur e alcohol) PHQ-2 Answer Date Recorded Patient Health Questionnaire-2 Score 2 01/06/2025 Comments No Sex and Gender Information Value Date Recorded Sex Assigned at Not on file Legal Sex Female 2:35 PM CDT Gender Identity Not on file Sexual Orientation Not on file Last Filed Vital Signs Vital Sign Reading Time Taken Comments Blood Pressure 110/80 06/05/2019 10:14 AM CDT Pulse 57 06/05/2019 10:14 AM CDT Temperature 35.8 C (96.5 F) 06/05/2019 10:14 AM CDT Respiratory Rate 16 08/13/2016 9:19 AM HEALTH AND WELLNESS INSTRUCTOR Oxygen Saturation 98% 06/05/2019 10: 14 AM CDT Inhaled Oxygen Concentration - - Weight 112.7 kg (248 lb 6.4 oz) 019 10:14 AM CDT Height 157.5 cm (5' 2) 06/05/2019 10:1 4 AM CDT Body Mass Index 45.43 06/05/2019 10:14 AM CDT Plan of Treatment Upcoming Encounters Date Type Department Care Team (Late st Contact Info) Description 01/12/2025 1:00 PM CDT Office Visit [facility] - Family Medicine [address] [facility], [facility] [address] [place] [address] Alfonzo Tavares PA-C [address] [facility] [address] [place] [address] Health Maintenance Due Date Last Done Comments COLOGUARD (AGES 45-75) - COLON CA SCREENING 1969 COLON MONITORING 1969 COLONOSCOPY - COLON CA SCREENING 1969 CT COLONOGRAPHY - COLON CA SCREENING 1969 Colorectal Cancer Screening 1969 FIT - COLON CA SCREENING 1969 FLEX SIG - COLON CA SCREENING 1969 PAP SMEAR 1969 HEPATITIS C SCREENING 09/21/1987 HEPATITIS B VACCINE (2 of 3 - 19+ 3-dose series) 08/02/2007 07/05/2007 MAMMOGRAM 07/23/2018 07/23/2016, 01/27/2015 LIPID TESTING 05/18/2019 05/18/2014, 05/05, 08/19/2012, Additional history exists PNEUMOCOCCAL VACCINE 50+ (1 of 1 - PCV) 2019 ZOSTER VACCINE (1 of 2) 2019 SCREENING FOR DIABETES 2021 9, 10/24/2017, 10/24/2017, Additional history exists DEPRESSION SCREENING 08/05/2024 DTAP/TDAP/TD VACCINES (3 - Td or Tdap) 08/30/2026 08/30/2016, 07/05/2007 HIV SCREENING Completed 06/20/2009 COVID-19 VACCINE Completed 04/29/2024, , 05/29/2022, Additional history exists INFLUENZA VACCINE Completed 04/29/2024, , 05/29/2022, Additional history exists HIB VACCINE Aged Out No longer eligi ble based on patient's age to complete this topic HPV VACCINE Aged Out No longer eligi ble based on patient's age to complete this topic MENINGOCOCCAL (Group B) VACCINE SHARED DECISION-MAKING Aged Out No longer eligible based on patient's age to complete this topic MENINGOCOCCAL GROUPS A/C/Y/W VACCINE Aged Out No longer eligible based on patient's age to complete this topic Goals Goal Patient Goal Type Associated Problems Recent Progress Patient-Stated? Author Follow-up with weight management as directed Weight Antonio Johansen MD Note: Goal 185 lb Goal for February 2019: 229 (12) Procedures Procedure Name Priority Date/Time Associated Diagnosis Comments HEMOGLOBIN A1C - POINT OF CARE (AMB) [facility] Routine 2018 Pre-diabetes MAMMO BILAT SCREENING Routine 07/23/2016 3:01 PM HEALTH AND WELLNESS INSTRUCTOR LIPID PROFILE Routine 05/18/2014 12:00 AM CDT HIV-1 HIV-2 ANTIBODY W REFLX HIV1 WB Routine 06/20/2009 11:55 AM HEALTH AND WELLNESS INSTRUCTOR from Last 3 Months or Most Recently Relevant to Health Maintenance Results * HEMOGLOBIN A1C - POINT OF CARE (AMB) [facility] (2018) Hemoglobin A1c POCT 5.6 BLOOD SPECIMEN / Unknown 2018 Christiano Burnette MD LAB - POINT OF CARE ORDERABL ES Final Result * MAMMO BILAT SCREENING (07/23/2016 3:01 PM HEALTH AND WELLNESS INSTRUCTOR) Anatomical Region Laterality Modality Breast Bilateral Other Impressions 07/24/2016 9:30 AM HEALTH AND WELLNESS INSTRUCTOR IMPRESSION: No mammographic evidence of malignancy. ASSESSMENT: BI-RADS Category 1: Negative mammogram. RECOMMENDATION: Bilateral screening mammogram in one year. I, Dr. JULIA GRANT M.D. have personally reviewed and interpreted this examination/study. This report was electronically signed by JULIA GRANT M.D. on 07/24/2016 9:30 AM . Narrative 07/24/2016 9:30 AM HEALTH AND WELLNESS INSTRUCTOR BILATERAL SCREENING MAMMOGRAM DATE: 07/23/2016. COMPARISON: Multiple prior mammograms, most recently 01/27/2015 and 06/01/2011. HISTORY: Screening mammogram. TECHNIQUE: Images were performed using 3D tomosynthesis images with reconstructed/synthetic 2D images and CAD analysis. BREAST COMPOSITION: There are scattered areas of fibroglandular density. RISK ASSESSMENT CALCULATION: Based on the information provided by the patient, her lifetime risk of breast cancer is average (<15%) (calculated at 6% by Tyrer- Cuzick model and 9% by NCI model). FINDINGS: There is no suspicious mass, clustered microcalcification, or architectural distortion in either breast on 2D or 3D images. There has been no change in the mammographic appearance compared with the prior study. Procedure Note Julia Grant MD - 11/01/2017 BILATERAL SCREENING MAMMOGRAM DATE: 07/23/2016. COMPARISON: Multiple prior mammograms, most recently 01/27/2015 and06/01/2011. HISTORY: Screening mammogram. TECHNIQUE: Images were performed using 3D tomosynthesis images withreconstructed/synthetic 2D images and CAD analysis. BREAST COMPOSITION: There are scattered areas of fibroglandular density. RISK ASSESSMENT CALCULATION: Based on the information provided by thepatient, her lifetime risk of breast cancer is average (<15%) (calculatedat 6% by Tyrer- Cuzick model and 9% by NCI model). FINDINGS: There is no suspicious mass, clustered microcalcification, orarchitectural distortion in either breast on 2D or 3D images. There hasbeen no change in the mammographic appearance compared with the priorstudy. IMPRESSION IMPRESSION: No mammographic evidence of malignancy. ASSESSMENT: BI-RADS Category 1: Negative mammogram. RECOMMENDATION: Bilateral screening mammogram in one year. IDr. JULIA M.D. have personally reviewed and interpretedthis examination/study. This report was electronically signed by JULIA GRANT M.D. on07/24/2016 9:30 AM . us Christiano Burnette MD MAMMO ORDERABLES Final Resul t * (ABNORMAL) LIPID PROFILE (05/18/2014 12:00 AM CDT) Cholesterol Total 207(H) 100 - 199 mg/dL [facility] ([facility]) Triglycerides 75 0 - 149 mg/dL [facility] ([facility]) HDL 59 >39 mg/dL [facility] ([facility]) Comment: According to ATP-III Guidelines, HDL-C >59 mg/dL is considered a negative risk factor for CHD. VLDL Calculated 15 5 - 40 mg/dL [facility] ([facility]) LDL Calculated 133(H) 0 - 99 mg/dL [facility] ([facility]) Blood specimen (specimen) BLOOD SPECIMEN / Unknown 05/18/2014 05/19/2014 3:41 AM CDT Narrative [facility] ([facility]) - 05/19/2014 9:32 AM CDT Performed at: 01 - [facility] [address] [place], [place] [id number] Feature Writer: Brian Torres PhD, Phone: [phone] Yennifer Garduno MD LAB - CHEMISTRY ORDERABLES Fi nal Result Performing Organization Address [facility] Co de Phone Number [facility] ([facility]) [address] [place] [address] * HIV-1 HIV-2 ANTIBODY W REFLX HIV1 WB (06/20/2009 11:55 AM HEALTH AND WELLNESS INSTRUCTOR) Pathologist [facility] HIV 1/2 EIA Antibody NON-REACTI VE NON-REACT KRYSTYNA [facility] ([facility]) Comment: A Nonreactive HIV-1/2 antibody result does not exclude HIV infection since the time frame for seroconversion is variable. If acute HIV infection is suspected, antibody retesting and nucleic acid amplification (HIV DNA/RNA) testing is recommended. Test Performed at: [facility] [address] [place] [address] CHRISTIANO ALFARO DO,MPH 06/20/2009 11:5 5 AM HEALTH AND WELLNESS INSTRUCTOR 06/20/2009 11:49 AM HEALTH AND WELLNESS INSTRUCTOR Narrative [facility] ([facility]) - 06/21/2009 2:00 PM HEALTH AND WELLNESS INSTRUCTOR Preferred Lab:->[facility] Loyd Patel MD LAB - CHEMISTRY ORDERABLES Final Result Performing Organization Address [facility] Co de Phone Number [facility] ([facility]) [phone] from Last 3 Months or Most Recently Relevant to Health Maintenance Insurance [facility] Care Teams Beauty Consultant Relationship Specialty Start Date End Date Antonio Dalton MD PCP - General 12/25/18
--- OUTSIDE RECORDS SUMMARY | 2025-01-11 17:45 | XMS_ITS | Encounter Summary ---
Author Organization [facility] Address [address] [place] [address] Care Team Providers Care Chief Recordist Name Role Phone Antonio Dalton MD Primary Care Provider [phone]- [phone] Reason for Visit * Reason Onset Date Comments MEDICATION REFILL 01/27/2020 Encounter Details Date Type Department Care Team (Late Contact Info) Description 01/27/2020 Refill [facility] [address] [facility] [place] [address] Antonio Dalton MD [address] [phone] MEDICATION REFILL Social History Tobacco Use Types Packs/Day Years Used Date Smoking Tobacco: Never Smokeless Tobacco: Never Alcohol Use Standard Drinks/Week Comments Yes 0 (1 standard drink = 0.6 oz pur e alcohol) Comments No Sex and Gender Information Value Date Recorded Sex Assigned at Not on file Legal Sex Female 2:35 PM CDT Gender Identity Not on file Sexual Orientation Not on file documented as of this encounter Plan of Treatment Upcoming Encounters Date Type Department Care Team (Late Contact Info) Description 01/12/2025 1:00 PM CDT Office Visit [facility] - [facility] Medicine [address] [facility], [address] [place] [phone] Alfonzo Tavares PAColtonC [address] [facility] [address] [place] [address] documented as of this encounter Goals Goal Patient Goal Type Associated Problems Recent Progress Patient-Stated? Author Follow-up with weight management as directed Weight No Antonio Dalton MD Note: Goal 185 lb Goal for February 2019: 229 (12) documented as of this encounter Visit Diagnoses Not on filedocumented in this encounter Care Teams Chief Recordist Relationship Specialty Start Date End Date Antonio Dalton MD PCP - General 12/25/18 documented as of this encounter
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
--- OUTSIDE RECORDS SUMMARY | 2025-01-11 17:45 | XMS_ITS | Referral Summary ---
Author Organization [facility] [address] Address [address] [place] [address] Care Team Providers Care Stunt Double Name Role Phone Sindi Rupal Day DPT Unavailable Shelton Eddy MD Primary Care Provider + [phone] Allergies Active Allergy Reactions Criticality Noted Date [...] 02/04/2024 02/10/2024 BMI 45.0-49.9, adult 05/20/2023 024 Social History Tobacco Use Types Packs/Day Years Used Date Smoking Tobacco: Never Passive Smoke Exposure: Past Smokeless Tobacco: Never Tobacco Cessation:Counseling Given: Not Answered [facility] Local Motionities Answer Date Recorded In the past 12 months has [employer], [employer], or water [employer] threatened to shut off services in your [...] 03/04/2024 How often do you attend chur or mormonism services? Never 03/04/2024 Do you belong to any clubs o r organizations such as religious groups, unions, fraternal or athletic groups, or [...] any time in the past 12 m [facility], were you homeless or living in a chcf (including now)? No 03/04/2024 Personal Safety Answer Date Recorded Have you ever been in or are you currently in a harmful physical or emotional relationship or is someone making you feel afraid or unsafe? 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 Gender Identity Female 04/19/2023 11:12 PM CDT Sexual Orientation Straight 04/19/2023 11 :12 PM CDT Last Filed Vital Signs Vital Sign Reading [...] 04/20/2024 9:42 AM CDT Plan of Treatment Not on file Medical Devices Implanted Type Area Bulk System Operator Device Identifier Shelf Expiration Date Model / Serial / Lot [employer] Bariatric Peristrip Non Crosslinked Bovine Pericardium For Endo Rachel Thin [id number] - [id number] Implanted:Qty: 1 on 02/04/2024 by Shawn Greco MD at [facility] N/A: Stomach [employer] 12/03/2025 [id number] / / [id number] [employer] Bariatric Peristrip Non Crosslinked Bovine Pericardium For Endo Rachel Thin [id number] - [id number] Implanted:Qty: 1 on 02/04/2024 by Shawn Greco MD at [facility] N/A: Stomach [employer] 10/15/2025 [id number] / / [id number] Insurance [facility] [email or web address] [place] [employer] [place] [facility] Advance Directives For more information, please contact: [phone] * Full Code (Latest Code Status on File) Date Activated Date Inactivated Comments 03/03/2024 8:27 PM 03/08/2024 7:26 PM * Full Code Date Activated Date Inactivated Comments 02/04/2024 12:25 PM 02/06/2024 6:16 PM * Full Code Date Activated Date Inactivated Comments 07/08/2023 7:31 AM 07/08/2023 1:14 PM Care Teams Stunt Double Relationship Specialty Start Date End Date Shelton Eddy MD [address] [place] [address] PCP - General Internal Medicine 12/06/23 Rupal Delong DPT [address] [facility] [address] [place] [id number] Physical Therapist Physical Therapy 06/17/23
--- OUTSIDE RECORDS SUMMARY | 2025-01-11 17:45 | XMS_ITS | Data Portability ---
Author Organization [place] - [employer], Main Office Address [address] [place] [address] Assessment No assessment recorded. Plan of Treatment Reminders Order Date Submit Date Provider Last Modified By Organization Details Last Modified Time Details Appointments Follow Up 20 2024 05:20P Frida Smith NP Not available Not available Not available Lab None recorded. Referral nutrition ist/dieti rafaela referral [email or web address], [address], [place], [address], 04/10/2023 10:27:43 bariatric surgery referral 2022 023 [email or web address] [facility], [address], [place], [address], 04/10/2023 10:28:41 Procedures None recorded. Surgeries None recorded. Imaging US, neck, soft tissue - *Please call pt to schedule* 2023 024 [facility], [address], [place], [address], 09/24/2023 21:47:40 Medication Orders None recorded. Patient TargetsNo targets recorded. 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 ral for Body mass index 30+ - obesity Referring Physician: Myron Schmitt, Family Medicine, Encounter Date: 03/13/2023 Bariatric Surgery Referral f or Body mass index 30+ - obesity Referring Physician: Myron Schmitt, Family Medicine, Encounter Date: 03/13/2023 Results Created Date Observation Date Name Description Value Unit Range Abnormal Flag Note LastModifiedBy Organization Detail LastModifiedTime 07/24/20 22 07/24/2022 TSH thyroid-stim ulating hormone 1.450 uIU/m L 0.465- 4.680 Not Available [facility] (Lab) [address] [place], [address], 07/24/2022 23:39:20 07/24/20 22 07/24/2022 FOLAT E, SERUM /PLAS MA folate 8.93 NG/mL 2.76-2 0.0 Not Available [facility] (Lab) [address] [place], [address], 07/24/2022 23:38:02 07/24/20 22 07/24/2022 VITAM IN B12 (OSMANI CHERYL ) vb12 >1000 pg/mL 239-93 1 high Not Available [facility] (Lab) [address] [place], [address], 07/24/2022 23:37:57 07/24/20 22 07/24/2022 VITAM IN D 25-HY DROXY vd25oh 23.9 NG/mL 30-100 low Vitam in D Statu s: Defic ient: <20 ng/mL Insuf ficie nt: 20-29 ng/mL Suffi cient : 30-10 0 ng/mL Not Available [facility] (Lab) [address] [place], [address], 07/24/2022 22:41:37 07/24/20 22 07/24/2022 CBC/C OMPLE TE BLD COUNT W/DIF F white blood cells 3.6 x10'3 /uL 4.2-10 .8 low Not Available [facility] (Lab) [address] [place], [address], 07/24/2022 21:31:16 07/24/20 22 07/24/2022 CBC/C OMPLE TE BLD COUNT W/DIF F red blood cells 4.51 x10'6 /uL 3.80-5 .20 Not Available [facility] (Lab) [address] [place], [address], 07/24/2022 21:31:16 07/24/20 22 07/24/2022 CBC/C OMPLE TE BLD COUNT W/DIF F hemoglobin 13.0 g/dL 12.0-1 5.6 Not Available [facility] (Lab) [address] [place], [address], 07/24/2022 21:31:16 07/24/20 22 07/24/2022 CBC/C OMPLE TE BLD COUNT W/DIF F hematocrit 40.8 % 35.7-4 5.7 Not Available [facility] (Lab) [address] [place], [address], 07/24/2022 21:31:16 07/24/20 22 07/24/2022 CBC/C OMPLE TE BLD COUNT W/DIF F mean red cell volume 90.5 fL 82.0-9 9.0 Not Available [facility] (Lab) [address] [place], [address], 07/24/2022 21:31:16 07/24/20 22 07/24/2022 CBC/C OMPLE TE BLD COUNT W/DIF F mean red cell hemoglobin 28.8 pg 27.0-3 3.0 Not Available [facility] (Lab) [address] [place], [address], 07/24/2022 21:31:16 07/24/20 22 07/24/2022 CBC/C OMPLE TE BLD COUNT W/DIF F mean RBC HGB concentratio n 31.9 g/dL 31.0-3 6.0 Not Available [facility] (Lab) [address] [place], [address], 07/24/2022 21:31:16 07/24/20 22 07/24/2022 CBC/C OMPLE TE BLD COUNT W/DIF F red cell distribution width 12.9 % 11.8-1 5.5 Not Available [facility] (Lab) [address] [facility] [place], [address], 07/24/2022 21:31:16 07/24/20 22 07/24/2022 CBC/C OMPLE TE BLD COUNT W/DIF F platelets 296 x10'3 /uL 150-40 0 Not Available [facility] (Lab) [address] [place], [address], 07/24/2022 21:31:16 07/24/20 22 07/24/2022 CBC/C OMPLE TE BLD COUNT W/DIF F mean platelet volume 10.7 fL 9.0-12 .4 Not Available [facility] (Lab) [address] [place], [address], 07/24/2022 21:31:16 07/24/20 22 07/24/2022 CBC/C OMPLE TE BLD COUNT W/DIF F neutrophils 43.3 % 39.0-7 2.0 Not Available [facility] (Lab) [address] [place], [address], 07/24/2022 21:31:16 07/24/20 22 07/24/2022 CBC/C OMPLE TE BLD COUNT W/DIF F lymphocytes 39.0 % 16.0-4 7.0 Not Available [facility] (Lab) [address] [place], [address], 07/24/2022 21:31:16 07/24/20 22 07/24/2022 CBC/C OMPLE TE BLD COUNT W/DIF F monocytes 9.0 % 5.0-12 .0 Not Available [facility] (Lab) [address] [place], [address], 07/24/2022 21:31:16 07/24/20 22 07/24/2022 CBC/C OMPLE TE BLD COUNT W/DIF F eosinophils 7.0 % 1.0-7. 0 Not Available [facility] (Lab) [address] [place], [address], 07/24/2022 21:31:16 07/24/20 22 07/24/2022 CBC/C OMPLE TE BLD COUNT W/DIF F basophils 1.4 % 0.0-2. 0 Not Available [facility] (Lab) [address] [place], [address], 07/24/2022 21:31:16 07/24/20 22 07/24/2022 CBC/C OMPLE TE BLD COUNT W/DIF F immature granulocytes 0.3 % 0.00-0 .50 Not Available [facility] (Lab) [address] [place], [address], 07/24/2022 21:31:16 07/24/20 22 07/24/2022 CBC/C OMPLE TE BLD COUNT W/DIF F neutrophils, absolute count 1.54 x10'3 /uL 1.5-8. 0 Not Available [facility] (Lab) [address] [place], [address], 07/24/2022 21:31:16 07/24/20 22 07/24/2022 CBC/C OMPLE TE BLD COUNT W/DIF F lymphocytes, absolute count 1.39 x10'3 /uL 1.07-3 .43 Not Available [facility] (Lab) [address] [place], [address], 07/24/2022 21:31:16 07/24/20 22 07/24/2022 CBC/C OMPLE TE BLD COUNT W/DIF F monocytes, absolute count 0.32 x10'3 /uL 0.29-0 .99 Not Available [facility] (Lab) [address] [place], [address], 07/24/2022 21:31:16 07/24/20 22 07/24/2022 CBC/C OMPLE TE BLD COUNT W/DIF F eosinophils, absolute count 0.25 x10'3 /uL 0.02-0 .53 Not Available [facility] (Lab) [address] [place], [address], 07/24/2022 21:31:16 07/24/20 22 07/24/2022 CBC/C OMPLE TE BLD COUNT W/DIF F basophils, absolute count 0.05 x10'3 /uL 0.01-0 .08 Not Available [facility] (Lab) [address] [place], [address], 07/24/2022 21:31:16 07/24/20 22 07/24/2022 CBC/C OMPLE TE BLD COUNT W/DIF F immature granulocytes ,absolute 0.01 x10'3 /uL 0.00-0 .05 Not Available [facility] (Lab) [address] [place], [address], 07/24/2022 21:31:16 07/24/20 22 07/24/2022 CBC/C OMPLE TE BLD COUNT W/DIF F nucleated red blood cells 0.0 % -0 Not Available [facility] (Lab) [address] [place], [address], 07/24/2022 21:31:16 07/24/20 22 07/24/2022 CBC/C OMPLE TE BLD COUNT W/DIF F NRBC# 0.00 x10'3 /uL Not Available [facility] (Lab) [address] [place], [address], 07/24/2022 21:31:16 12/18/19 23 12/17/2022 US, abdom en No observ ation record ed. [email or web address] [facility] [address], [place], [address], 12/17/2022 12:05:40 03/22/20 23 03/22/2023 US, renal No observ ation record ed. [email or web address] [facility] [address], [place], [address], 03/26/2023 13:11:09 04/23/20 23 04/13/2023 XR, knee No observ ation record ed. [email or web address] Not Available 04/05 09:43:03 06/06/20 23 05/23/2022 upper endos copy proce dure (EGD) (PROC ) No observ ation record ed. BARCODE Not Available 2022 08:23:41 06/06/20 23 05/23/2022 colon oscop y scree nuzhat (PROC ) No observ ation record ed. BARCODE Not Available 2022 08:23:42 08/26/19 24 08/21/2023 XR, lumba r spine No observ ation record ed. [email or web address] [facility] [address], [place], [address], 12/15/2023 15:30:56 09/24/19 24 09/24/2023 US, neck, soft tissu e No observ ation record ed. [email or web address] [place] [address], [place], [address], 10/09/2023 15:59:05 Result Notes None recorded. Problems Name Problem SNOMED Code Status Onset Date Resolution Date Notes Provider Name and Address Organization Details Recorded Time Cyst of kidney 747607927 Active 2022 CARMEN Negron [address], [place], [address] , [place] [facility] [employer] 3 08:19:20 Chronic kidney disease stage 3 918264104 Active 2022 CARMEN Negron [address], [address], [place], [address] , [employer] 3 08:19:45 Lumbago with sciatica 769940187 Active 2022 CARMEN Negron [address], [address], [place], [address] , [employer] 3 08:27:33 Leukopenia 70571728 Active 2022 CARMEN Negron [address], [place], [address] , [employer] 3 08:28:57 Dependent edema 465569979 Active 2022 CARMEN Negron [address], [place], [address] , [employer] 3 14:45:32 Mass of neck 525615759 Active 2023 ZEYNEP Nielson [address], [place], [address] , [employer] 4 16:10:57 Thyroid nodule 468867585 Active 2023 ZEYNEP Nielson [address], [place], [address] , [employer] 4 16:00:18 Abdominal pain 21087562 Active 2021 Not Available [employer] 3 04:49:16 Renal impairment 992260179 Active 2019 Not Available [employer] 3 04:49:16 Morbid obesity 798059418 Active 2021 Not Available [employer] 3 04:49:16 Dyspnea 263006890 Active 2019 Not Available [employer] 3 04:49:16 Depressive disorder 81118786 Active 2019 Not Available [employer] 3 04:49:16 Neuropathy 015575452 Active 2019 Not Available [employer] 3 04:49:16 Dysphagia 40192003 Active 2021 Not Available [facility] 3 04:49:16 Anxiety 11626599 Active 2019 Not Available [facility] 3 04:49:16 Postviral fatigue syndrome 81482443 Active 2019 Not Available [facility] 3 04:49:16 Essential hypertension 74222139 Active 2019 Not Available [facility] 3 04:49:16 Allergic rhinitis 18817968 Active 2020 Not Available [facility] 3 04:49:16 Prediabetes 203698003 Active 2019 Not Available [facility] 3 04:49:16 Obstructive sleep apnea syndrome 59462621 Active 2020 Not Available [facility] 3 04:49:17 Epigastric pain 46211716 Active 2021 Not Available [facility] 3 04:49:17 Problem Notes None recorded. Procedures Surgical History Date Name Laterality Status Provider Name and Address Organization Details Recorded Time 1 Most Recent Mammogram completed Not Available [facility] 10/03/2022 04:41:42 8 Date of Last Pap Smear completed Not Available [facility] 10/03/2022 04:41:42 Orthopedic Surgery completed Not Available [facility] 10/03/2022 04:41:45 section completed Not Available [facility] 10/03/2022 04:41:45 Imaging Results None recorded. Procedure Notes None recorded. Medical Equipment None Reported. Allergies Allergen ID Allergen Name Allergen Category Reaction Reaction Severity Criticality Documentation Date Start Date Code Code System Note Provider Name and Address Organization Details Recorded Time 97906 Abilify medicatio n Not available Not available Not available 02/26/2023 77661 3 RxNorm Mady Vann RN null, [place] [employer] [facility] 3 08:10:11 7516 Wellbutri n medicatio n Not available Not available Not available 10/03/2022 92768 RxNorm Not Available [facility] 3 05:01:17 7517 Substance with sulfonami de structure and antibacte rial mechanism of action (substanc e) medicatio n Not available Not available Not available 10/03/2022 90640 8003 SNOMED Not Available [facility] 3 05:01:17 7518 pineapple extract food Not available Not available Not available 10/03/2022 14792 74 RxNorm Not Available [facility] 3 05:01:17 7519 Product containin g penicilli n (product) medicatio n Not available Not available Not available 10/03/2022 06035 8001 SNOMED Not Available [facility] 3 05:01:17 7520 Latex (substanc e) environme nt,medica tion Not available Not available Not available 10/03/2022 46614 8007 SNOMED Not Available [facility] 3 05:01:17 7521 latex environme nt,medica tion rash Not available Not available 10/03/2022 96660 91 RxNorm Not Available [facility] 3 05:01:17 7522 bupropion Not available hallucina tions severe Not available 10/03/2022 82130 RxNorm Not Available [facility] 3 05:01:18 7523 Ambien medicatio n Not available Not available Not available 10/03/2022 73735 5 RxNorm Not Available [facility] 3 05:01:18 Medications Name Sig Start Date Stop Date Status Note LastModified by Organization Details LastModified Time binaxnow cov kit home raciel active Not Available Not Available Not Available fluoxetine 40 mg capsule TAKE 1 CAPSULE BY MOUTH ONCE DAILY IN THE MORNING active Not Available Not Available No t Available cyclobenzap rine 10 mg tablet TAKE 1 TABLET BY MOUTH EVERY 8 HOURS active Not Available Not Available No t Available atorvastati n 20 mg tablet TAKE 1 TABLET BY MOUTH ONCE DAILY active Not Available Not Available No t Available carvedilol 12.5 mg tablet TAKE 1 TABLET BY MOUTH TWICE DAILY active Not Available Not Available No t Available loperamide 2 mg capsule TAKE 1 CAPSULE BY MOUTH THREE TIMES DAILY active Not Available Not Available No t Available trazodone 50 mg tablet TAKE 1 TABLET BY MOUTH NEEDED AT BEDTIME active Not Available Not Available No t Available lisinopril 20 mg-hydrochl orothiazide 12.5 mg tablet TAKE 2 TABLETS BY MOUTH ONCE DAILY active Not Available Not Available No t Available fluconazole 150 mg tablet TAKE ONE TABLET BY MOUTH A ONE TIME DOSE REPEAT ONE TABLET IN 3 5 DAYS IF NEEDED active Not Available Not Available No t Available benzonatate 200 mg capsule Take 1 capsule 3 times a day by oral route as needed for 10 days. active Not Available Not Available No t Available metronidazo le 0.75 % (37.5 mg/5 gram) vaginal gel active Not Available Not Available Not Available ondansetron HCl 4 mg tablet TAKE 1 TABLET BY MOUTH EVERY 8 HOURS NEEDED FOR NAUSEA AND VOMITING (START POST-SURG ALBERTO) active Not Available Not Available No t Available prednisone 20 mg tablet Take 2 tablets every day by oral route for 5 days. active Not Available Not Available No t Available olanzapine 5 mg tablet TAKE 1 TABLET BY MOUTH ONCE DAILY AT BEDTIME active Not Available Not Available No t Available hydroxyzine pamoate 50 mg capsule TAKE 1 CAPSULE BY MOUTH THREE TIMES DAILY NEEDED FOR ANXIETY active Not Available Not Available No t Available olanzapine 10 mg tablet TAKE 1 TABLET BY MOUTH ONCE DAILY AT BEDTIME active Not Available Not Available No t Available ciprofloxac in 250 mg tablet TAKE 1 TABLET BY MOUTH TWICE DAILY FOR 7 DAYS active Not Available Not Available No t Available sulfamethox azole 800 mg-trimetho prim 160 mg tablet TAKE 1 TABLET BY MOUTH EVERY 12 HOURS FOR 7 DAYS active Not Available Not Available No t Available olanzapine 2.5 mg tablet TAKE 1 TABLET BY MOUTH ONCE DAILY AT BEDTIME FOR 30 DAYS active Not Available Not Available No t Available olanzapine 7.5 mg tablet TAKE 1 TABLET BY MOUTH ONCE DAILY AT BEDTIME FOR 30 DAYS active Not Available Not Available No t Available tramadol 50 mg tablet TAKE 1 TABLET BY MOUTH EVERY 6 HOURS NEEDED FOR 5 DAYS active Not Available Not Available No t Available quetiapine 100 mg tablet TAKE 1 TABLET BY MOUTH ONCE DAILY AT BEDTIME 04/27 completed Not Available Not Available Not Available spironolact one 25 mg tablet TAKE 1 TABLET BY MOUTH ONCE DAILY active Not Available Not Available No t Available ondansetron 8 mg disintegrat ing tablet PUT 1 TABLET ONTO TONGUE 2 TIMES DAILY FOR 3 DAYS NEEDED FOR NAUSEA AND VOMITING. active Not Available Not Available No t Available meloxicam 7.5 mg tablet Take 1 tablet by mouth once daily 2022 active Not Available Not Available Not Avai lable lidocaine 1 %-epinephri ne 1:100,000 injection solution Take 2 mL by injection route for 1 day. active Not Available Not Available No t Available propranolol 10 mg tablet TAKE 1 TABLET BY MOUTH 4 TIMES DAILY NEEDED FOR HIGH BLOOD PRESSURE active Not Available Not Available No t Available methocarbam ol 750 mg tablet TAKE 1 TABLET BY MOUTH EVERY 6 HOURS NEEDED active Not Available Not Available No t Available trazodone 100 mg tablet TAKE 1 TABLET BY MOUTH ONCE DAILY AT BEDTIME FOR 30 DAYS active Not Available Not Available No t Available amlodipine 10 mg tablet TAKE 1 TABLET BY MOUTH ONCE DAILY active Not Available Not Available No t Available triamcinolo ne acetonide 40 mg/mL suspension for injection Take 40 mg by injection route for 1 day. active Not Available Not Available No t Available cephalexin 500 mg capsule TAKE 1 CAPSULE BY MOUTH EVERY 12 HOURS FOR 10 DAYS active Not Available Not Available No t Available pantoprazol e 40 mg tablet,patti yed release TAKE 1 TABLET BY MOUTH ONCE DAILY IN THE MORNING 30 MINUTES BEFORE BREAKFAST FOR ACID REFLUX active Not Available Not Available No t Available cyanocobala min (vit B-12) 1,000 mcg/mL injection solution 07/14 completed Not Available Not Available Not Available fluoxetine 20 mg tablet TAKE 1 & 1 2 (ONE & ONE HALF) TABLETS BY MOUTH ONCE DAILY 09/28 completed Not Available Not Available Not Available triamcinolo ne acetonide 0.1 % topical ointment APPLY A THIN LAYER TOPICALLY TO THE AFFECTED AREA(S) TWICE DAILY active Not Available Not Available No t Available hyoscyamine 0.125 mg sublingual tablet DISSOLVE 1 TABLET IN MOUTH EVERY 6 HOURS FOR 4 DAYS (START POST-SURG ALBERTO) active Not Available Not Available No t Available ursodiol 300 mg capsule TAKE 1 CAPSULE BY MOUTH TWICE DAILY (START POST-SURG ALBERTO) active Not Available Not Available No t Available benztropine 1 mg tablet active Not Available Not Available Not Available fluoxetine 10 mg capsule TAKE 1 CAPSULE BY MOUTH ONCE DAILY 09/04 completed Not Available Not Available Not Available omeprazole 20 mg capsule,del ayed release TAKE 1 CAPSULE BY MOUTH TWICE DAILY (START POST-SURG ALBERTO) active Not Available Not Available No t Available diclofenac sodium 75 mg tablet,patti yed release TAKE 1 TABLET BY MOUTH TWICE DAILY active Not Available Not Available No t Available hydroxyzine HCl 25 mg tablet 08/10 completed Not Available Not Available Not Available furosemide 20 mg tablet TAKE 1 TABLET BY MOUTH IN THE MORNING active Not Available Not Available No t Available ergocalcife rol (vitamin D2) 1,250 mcg (50,000 unit) capsule TAKE 1 CAPSULE BY MOUTH ONCE A WEEK active Not Available Not Available No t Available lisinopril 10 mg-hydrochl orothiazide 12.5 mg tablet Take 1 tablet every day by oral route. 08/10 completed Not Available Not Available Not Available fluocinonid e 0.05 % topical solution APPLY TOPICALLY TWICE DAILY TO FRONTAL SCALP WHERE HAIRS THINNED AND BROKEN OFF active Not Available Not Available No t Available scopolamine 1 mg over [address] 1 PATCH ON THE SKIN ONCE FOR 1 DOSE, PLACE BEHIND EAR AT 8PM THE NIGHT PRIOR TO SURGERY active Not Available Not Available No t Available methylpredn isolone 4 mg tablets in a dose pack TAKE BY MOUTH DIRECTED ON INSIDE OF PACKAGE active Not Available Not Available No t Available albuterol sulfate HFA 90 mcg/actuati on aerosol inhaler INHALE 2 PUFFS BY MOUTH EVERY 4 HOURS NEEDED active Not Available Not Available No t Available losartan 50 mg-hydrochl orothiazide 12.5 mg tablet TAKE 1 TABLET BY MOUTH ONCE DAILY active Not Available Not Available No t Available propranolol 20 mg tablet Take 1 tablet 3 times a day by oral route. 08/10 completed Not Available Not Available Not Available ondansetron 4 mg disintegrat ing tablet DISSOLVE 1 TABLET IN MOUTH EVERY 8 HOURS NEEDED FOR NAUSEA FOR VOMITING active Not Available Not Available No t Available fluoxetine 20 mg capsule TAKE 1 CAPSULE BY MOUTH ONCE DAILY 04/27 completed Not Available Not Available Not Available fluticasone propionate 50 mcg/actuati on nasal spray,suspe nsion USE 2 SPRAY(S) IN EACH NOSTRIL ONCE DAILY active Not Available Not Available No t Available doxycycline hyclate 100 mg tablet 08/10 completed Not Available Not Available Not Available calcitriol 0.25 mcg capsule TAKE I CAPSULE BY MOUTH THREE TIMES PER WEEK; ADMINISTE R ON MONDAYS, SATURDAY S, AND FRIDAYS active Not Available Not Available No t Available oxycodone 5 mg tablet active Not Available Not Available No t Available hydroxyzine pamoate 25 mg capsule TAKE 1 CAPSULE BY MOUTH THREE TIMES DAILY NEEDED active Not Available Not Available No t Available aripiprazol e 10 mg tablet TAKE 1 TABLET BY MOUTH ONCE DAILY AT BEDTIME FOR 30 DAYS active Not Available Not Available No t Available cyclobenzap rine 5 mg tablet 03/08 completed Not Available Not Available Not Available aripiprazol e 5 mg tablet TAKE 1 TABLET BY MOUTH ONCE DAILY IN THE MORNING FOR 30 DAYS active Not Available Not Available No t Available Iron (ferrous sulfate) active 65 mg Not Available Not Available Not Available multivitami n 2019 active Not Available Not Available Not Avai lable aprepitant 40 mg capsule TAKE 1 CAPSULE BY MOUTH ONCE FOR 1 DOSE, TAKE AT 8PM ON THE NIGHT PRIOR TO SURGERY active Not Available Not Available No t Available aripiprazol e 2 mg tablet TAKE 1 TABLET BY MOUTH ONCE DAILY IN THE MORNING FOR 30 DAYS active Not Available Not Available No t Available quetiapine 50 mg tablet TAKE 1 TABLET BY MOUTH ONCE DAILY AT BEDTIME FOR 30 DAYS 04/27 completed Not Available Not Available Not Available quetiapine ER 150 mg tablet,exte nded release 24 hr TAKES DAILY active Not Available Not Available No t Available fluoxetine 60 mg tablet TAKE 1 TABLET BY MOUTH ONCE DAILY DIRECTED FOR 30 DAYS active Not Available Not Available No t Available Farxiga 5 mg tablet TAKE 1 TABLET BY MOUTH ONCE DAILY active Not Available Not Available No t Available Biotene Dry Mouth Oral Rinse mouthwash Take per package instructi ons active Not Available Not Available No t Available Arnuity Ellipta 200 mcg/actuati on powder for inhalation INHALE 1 PUFF BY MOUTH ONCE DAILY DIRECTED active Not Available Not Available No t Available Vitamin B12 Gummy 2019 active Not Available Not Available Not Avai lable Vraylar 1.5 mg capsule TAKE 1 CAPSULE BY MOUTH ONCE DAILY DIRECTED FOR 30 DAYS active Not Available Not Available No t Available Qvar RediHaler 80 mcg/actuati on HFA breath activated aerosol Inhale 2 puffs twice a day by inhalatio n route as directed for 30 days. 08/18 completed Not Available Not Available Not Available Fluarix Quad (PF) 60 mcg (15 mcg x 4)/0.5 mL IM syringe 12/14 completed Not Available Not Available Not Available Fluzone Quad (PF) 60 mcg (15 mcg x 4)/0.5 mL IM syringe PHARMACIS T ADMINISTE RED IMMUNIZAT ION ADMINISTE RED AT TIME OF DISPENSIN G active Not Available Not Available No t Available Sutab 1.479-0.188 -0.225 gram tablet TAKE DIRECTED PER PHYSICIAN 'S INSTRUCTI ON PROCEDURE DATE 05/23 active Not Available Not Available No t Available BinaxNOW COVID-19 Ag Self Test kit Use as Directed on the Package active Not Available Not Available No t Available Brenzavvy 20 mg tablet TAKE ONE TABLET BY MOUTH EVERY DAY active Not Available Not Available No t Available Vitals Date Recorded Body mass index (BMI) Body height Oxygen saturation Oxygen saturation in Arterial blood by Pulse oximetry Heart rate Body temperature Body weight Systolic blood pressure Diastolic blood pressure Provider Name and Address Organization Details Last Updated DateTime 3 44.8 kg/m2 157.48 cm 97 % 97 % 76 /min 96.9 [degF] 420473. 13 g 122 mm[Hg] 80 mm[Hg] Not Available [facility] 3 04:44:03 Date Recorded Body height Body mass index (BMI) Body weight Body temperature Heart rate Oxygen saturation Oxygen saturation in Arterial blood by Pulse oximetry Systolic blood pressure Diastolic blood pressure Provider Name and Address Organization Details Last Updated DateTime 4 157.48 cm 47.9 kg/m2 217595. 2 g 97.6 [degF] 58 /min 97 % 97 % 128 mm[Hg] 86 mm[Hg] Janie Cervantes RN [facility] [employer] 4 16:00:52 Date Recorded Body height Body mass index (BMI) Body weight Body temperature Heart rate Oxygen saturation Oxygen saturation in Arterial blood by Pulse oximetry Systolic blood pressure Diastolic blood pressure Provider Name and Address Organization Details Last Updated DateTime 3 157.48 cm 45.9 kg/m2 976920. 68 g 96.5 [degF] 65 /min 97 % 97 % 108 mm[Hg] 62 mm[Hg] Mady Vann RN [facility] [employer] 3 08:09:45 Date Recorded Body height Body mass index (BMI) Body weight Body temperature Heart rate Oxygen saturation Oxygen saturation in Arterial blood by Pulse oximetry Systolic blood pressure Diastolic blood pressure Provider Name and Address Organization Details Last Updated DateTime 3 157.48 cm 45.7 kg/m2 375363. 09 g 97.7 [degF] 67 /min 94 % 94 % 104 mm[Hg] 70 mm[Hg] FRANSISCA Gustafson [facility] [employer] [facility] 3 08:20:40 Date Recorded Body height Body mass index (BMI) Body weight Body temperature Heart rate Oxygen saturation Oxygen saturation in Arterial blood by Pulse oximetry Systolic blood pressure Diastolic blood pressure Provider Name and Address Organization Details Last Updated DateTime 3 157.48 cm 46.1 kg/m2 467082. 28 g 96.9 [degF] 68 /min 93 % 93 % 110 mm[Hg] 70 mm[Hg] FRANSISCA Gustaf[facility] [employer] [facility] 3 08:17:16 Social History Question Answer Notes LastModified by Organizat ion Details LastModified Time Tobacco Smoking Status Never Smoker Not Available [facility] 10/03/2022 04:15:20 Do You Have An Advance Directive? No MIGRATION.[id number] 2836 Information not available 10/03/2022 Do You Wear A Helmet When Biking? No MIGRATION.972557 8366 Information not available 10/03/2022 What Is Your Level Of Caffeine Consumption? None MIGRATION.103869 2039 Information not available 10/03/2022 In The 14 Days Before Symptom Onset, Have You Had Close Contact With A Laboratory-confirm ed COVID-19 While That Case Was Ill? No MIGRATION.924424 1888 Information not available 10/03/2022 In The 14 Days Before Symptom Onset, Have You Had Close Contact With A Person Who Is Under Investigation For COVID-19 While That Person Was Ill? No MIGRATION.729868 3224 Information not available 10/03/2022 What Type Of Diet Are You Following? REGULAR MIGRATION.001058 2947 Information not available 10/03/2022 Which Illicit Or Recreational Drugs Have You Used? None MIGRATION.313467 9412 Information not available 10/03/2022 What Is The Highest Grade Or Level Of School You Have Completed Or The Highest Degree You Have Received? [id number] MIGRATION.097202 2973 Information not available 10/03/2022 Have There Been Any Changes To Your Family Or Social Situation? No MIGRATION.651365 6142 Information not available 10/03/2022 What Is The Fluoride Status Of Your Home? Unknown MIGRATION.684501 2177 Information not available 10/03/2022 Are There Any Guns Present In Your Home? No MIGRATION.401120 6284 Information not available 10/03/2022 Do You Use Insect Repellent Routinely? Yes MIGRATION.406463 2373 Information not available 10/03/2022 Where Do You Live? Apartment MIGRATION .140263 3437 Information not available 10/03/2022 Do You Have A Medical Power Of Lung Gun Operator? No MIGRATION.105571 6954 Information not available 10/03/2022 What Was The Date Of Your Most Recent Tobacco Screening? 12/14/2020 MIGRATION.014661 9470 Information not available 10/03/2022 Have You Ever Been Counseled For Unhealthy Alcohol Use? No MIGRATION.100714 9878 Information not available 10/03/2022 Do You Have Any Pets? No MIGRATION.898165 8811 Information not available 10/03/2022 What Is Your Relationship Status? MIGRATION.328222 2003 Information not available 10/03/2022 Do You Use Your Seat Belt Or Car Seat Routinely? Yes MIGRATION.166243 0273 Information not available 10/03/2022 Do You Have Smoke And Carbon Monoxide Detectors In Your Home? Yes MIGRATION.493925 2444 Information not available 10/03/2022 Are You Passively Exposed To Smoke? No MIGRATION.275679 3387 Information not available 10/03/2022 Are There Any Smokers In Your House? No MIGRATION.355025 6681 Information not available 10/03/2022 Do You Participate In Social Media? Yes MIGRATION.118005 8636 Information not available 10/03/2022 Do You Use Sunscreen Routinely? No MIGRATION.148134 0052 Information not available 10/03/2022 Have You Recently Traveled Abroad? No MIGRATION.783062 8573 Information not available 10/03/2022 Are You Currently In School? No MIGRATION.336150 6586 Information not available 10/03/2022 Do You Have Any Dietary Restrictions? No MIGRATION.086074 6995 Information not available 10/03/2022 Sex: Female Functional Status Question Answer Note LastModified by Organizat ion Details LastModified Time Do you use any illicit or recreational drugs? No MIGRATION.897076 8699 Information not available 10/03/2022 Do you or have you ever used any other forms of tobacco or nicotine? No MIGRATION.983316 4121 Information not available 10/03/2022 What is your level of alcohol consumption? Occasional MIGRATION.711851 1760 Information not available 10/03/2022 Do you or have you ever used smokeless tobacco? 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 Never used electronic cigarettes MIGRATION.149487 9600 Information not available 10/03/2022 What is your exercise level? None MIGRATION.216540 8117 Information not available 10/03/2022 Mental Status Question Answer Note LastModified by Organizat ion Details LastModified Time Do you feel stressed (tense, restless, nervous, or anxious, or unable to sleep at night)? [id number] MIGRATION.[id number] 6 Information not available 10/03/2022 Family History Relationship Description Onset Age of this Age Resolved Age Notes LastModified by Organization Details LastModified Time Brother Hypertensive disorder MIGRATION.871 [id number] Not available 10/03/2022 04:41:48 Brother Diabetes mellitus MIGRATION.207 [id number] Not available 10/03/2022 04:41:48 Father Hypertensive disorder MIGRATION.671 [id number] Not available 10/03/2022 04:41:48 Mother Hypertensive disorder MIGRATION.419 [id number] Not available 10/03/2022 04:41:48 Sister Hypertensive disorder MIGRATION.597 [id number] Not available 10/03/2022 04:41:48 Maternal Uncle Diabetes mellitus MIGRATION.044 9571234 Not available 10/03/2022 04:41:48 Medical History Condition Response ANXIETY DISORDER Y OBESITY Y KIDNEY DISEASE Y ALLERGIES/HAYFEVER Y DEPRESSION (INCLUDING POST ) Y BOWEL PROBLEMS Y SLEEP DISORDER Y HEARTBURN / REFLUX Y HYPERTENSION Y Gynecological History Statement/Question Response Abnormal Pap N Date of Last Mammogram 03/21/2021 Date of Last Pap Smear 07/14/2018 Current Control Method Menopause Age at Menarche 14 Most Recent Mammogram 03/21/2021 Obstetrics History GPAL:G 4 P 2 0 2 2 Type Value Full Term 2 Induced 1 Spontaneous 1 Living 2 Total 4 Immunizations Vaccine Type Date Status Note Provider Nam e and Address Organization Details Recorded Time influenza, unspecified formulation 3 completed VIRA Domingo, [facility] [employer] [facility] 05/22/2023 14:36:58 COVID-19, mRNA, LNP-S, PF, 50 mcg/0.5 mL 3 completed VIRA Domingo, [employer] [facility] 05/22/2023 14:37:37 zoster, unspecified formulation 2 completed Not Available [facility] 10/03/2022 05:00:55 Influenza, split virus, quadrivalent, PF 0 completed Not Available [facility] 10/03/2022 05:00:55 Past Encounters Encounter ID Performer Location Encounter Start Date Encounter Closed Date Diagnosis/Indication Diagnosis SNOMED-CT Code Diagnosis ICD10 Code Diagnosis Note [id number] Jaylyn Watt MD [facility] [address] [address] 11/07/2020 00:00:00 11/07/2020 15:30:46 [id number] Chastity Smith NP [facility] [address] [place] [address] 01/30/2021 00:00:00 01/30/2021 16:23:47 [id number] Chastity Smith NP [facility] [address] [facility] [place] [address] 03/29/2021 00:00:00 03/29/2021 19:07:00 [id number] Chastity Smith NP [facility] [address] [place], [place] [address] [address] 05/25/2021 00:00:00 05/25/2021 15:26:10 [id number] Chastity Smith NP [facility] [address] [place], [place] [address] [address] 1 06/28/2021 00:00:00 06/28/2021 15:22:22 [id number] Chastity Smith, CELINE [facility] [address], [address] [address] 09/12/2021 00:00:00 09/12/2021 15:45:14 [id number] Chastity Smith NP [facility] [address], [address] [address] 10/31/2021 00:00:00 10/31/2021 10:35:13 [id number] Chastity Smith NP [facility] [address], [address] [address] 01/08/2022 00:00:00 01/08/2022 10:38:02 [id number] Chastity Smith NP [facility] [address], [address] [address] 02/07/2022 00:00:00 02/07/2022 15:27:42 [id number] Chastity Smith NP [facility] [address], [address] [address] 1 04/12/2022 00:00:00 04/12/2022 15:49:34 [id number] Chastity Smith NP [facility] [address], [address] [address] 06/27/2022 00:00:00 07/02/2022 11:27:54 [id number] Chastity Smith NP [facility] [address], [address] [address] 07/25/2022 00:00:00 07/25/2022 18:21:29 [id number] Chastity Smith NP [facility] [address], [address] [address] 08/20/2022 00:00:00 08/21/2022 09:55:08 [id number] Chastity Smith NP [facility] [address], [address] [place] [address] 09/18/2022 00:00:00 09/18/2022 18:54:49 [id number] [facility] [place] [address] [place] [address] 12/14/2020 00:00:00 12/14/2020 23:59:36 [id number] [facility] _ATHENA_M IGRATION_ DEFAULT_1 _1 , 02/22/2021 00:00:00 02/22/2021 17:20:11 [id number] [facility] [place] [address] [place] [address] 04/05/2021 00:00:00 04/06/2021 00:00:38 [id number] [facility] [place] [address] [place] [address] 05/17/2021 00:00:00 05/17/2021 17:19:24 [id number] Guerda Reardon MD [facility] [place] [address] [place] [address] 10/10/2021 00:00:00 10/10/2021 13:50:12 [id number] [facility] [place] [address] [place] [address] 12/27/2021 00:00:00 12/27/2021 16:27:03 [id number] CARMEN Negron [facility] [place] [address] [place] [address] 01/16/2022 00:00:00 01/16/2022 12:13:19 [id number] CARMEN Negron [facility] [place] [address] [place] [address] 01/31/2022 00:00:00 01/31/2022 11:33:02 [id number] CARMEN Negron [facility] [place] [address] [facility] [address] [place] [address] 03/07/2022 00:00:00 03/07/2022 08:58:14 [id number] _ATHN_MIGR ATION_1 _ATHENA_M IGRATION_ DEFAULT_1 _1 , 05/09/2022 00:00:00 05/09/2022 17:44:51 [id number] Guerda Reardon MD [facility] [place] [address] [facility] [address] [place] [address] 07/24/2022 00:00:00 07/24/2022 13:58:38 [id number] Guerda Reardon MD [facility] [place] [address] [facility] [address] [place] [address] 08/08/2022 00:00:00 08/08/2022 13:30:24 [id number] Chastity Smith NP [facility] [address] [address] 10/23/2022 18:14:43 10/24/2022 11:44:17 [id number] Chastity Smith NP [facility] [address] [address] 01/21/2023 18:14:27 01/21/2023 18:43:54 [id number] Chastity Smith NP [facility] [address] [address] 02/25/2023 18:16:42 02/26/2023 10:26:08 [id number] CARMEN Negron [facility] [place] [address] [facility] [address] [place] [address] 02/26/2023 07:56:44 02/26/2023 08:40:31 Cyst of kidney 325197077 N28.1 New problemLef tFinding on abd u/s (12/17/22)C omplete follow up imaging per Dr. Rios as scheduled. Chronic ki dney disease stage 3 108694271 N18.30 New dx per nephrology (Dr. Rios)Aw aiting results of additional imaging and labsShe is Euvolemic. Reviewed course of kidney disease, importance to control HTN, low salt diet Lumbago with sciatica 20 3542880 M54.41 M54.42 New problemDai ly good back mechanics reviewed with patient, good posture, avoid prolonged sitting or standing, stretches given and reviewed with patient. Heat 10-15 minutes 3 times daily as needed for pain or spasms. Go to ED for neurologic symptoms or incontinen ce. Leukopenia 78816401 D72. 819 Chronicwbc 3.8 (03/09/2020) , 3.6 ( 2)May be adverse affect of previous covid infection, normal for this patient, or represent a pathology. Being managed by Dr. Pham (hematolog y/oncology ) Body mass index 30+ - obesity 288650341 Z68.42 ChronicNot improved despite report of dieting/li festyle changes.Ad vised eat 3 meals daily with 1-2 healthy snacks, eliminate caloric drinks, no grazing btw meals, reduce packaged foods, portion control, modificati on of cooking style, low fat/low sugar items, 30 minutes of exercise at least 3x/week, reduce emotional/ stress eating, increase fruits/veg etables, take 15-20 minutes to eat.Encour aged pt to keep food diary for the next 2 weeks. Dependent edema 21397711 4 R60.0 New problemEle vate lower extremitie s, try not to keep legs dependent. Limit salt, pork, caffeine. Try otc compressio n socks. Work on appropriat e water intake. No diuretics indicated at this time. [id number] CARMEN Negron [facility] [place] [address] [facility] [address] [facility] [place] [address] 03/13/2023 08:05:05 03/13/2023 08:58:21 Cyst of kidney 212986333 N28.1 LeftFindin g on abd u/s (12/17/22), repeat scan this month as arie d.Complete follow up imaging per Dr. Rios as scheduled. Leukopenia 17097341 D72. 819 Chronicwbc 3.8 (03/09/2020) , 3.6 ( 2)May be adverse affect of previous covid infection, normal for this patient, or represent a pathology. Being managed by Dr. Pham (hematolog y/oncology ) Body mass index 30+ - obesity 372292681 Z68.42 ChronicNot improved despite report of dieting/li festyle changes.Ad vised eat 3 meals daily with 1-2 healthy snacks, eliminate caloric drinks, no grazing btw meals, reduce packaged foods, portion control, modificati on of cooking style, low fat/low sugar items, 30 minutes of exercise at least 3x/week, reduce emotional/ stress eating, increase fruits/veg etables, take 15-20 minutes to eat.Review ed food diary with pt and discussed reduction of carbs/fats in diet. Gave meal planning handout and referred to tool room lathe operator/ nutritioni st for further evaluation /tx. Will refer to bariatrics to discuss options. [id number] Guerda Reardon MD [facility] [address] [place] [address] 04/10/2023 08:11:45 04/10/2023 10:44:05 Body mass index 30+ - obesity 526600319 Z68.42 ChronicNot improved despite report of dieting/li festyle changes.Ad vised eat 3 meals daily with 1-2 healthy snacks, eliminate caloric drinks, no grazing btw meals, reduce packaged foods, portion control, modificati on of cooking style, low fat/low sugar items, 30 minutes of exercise at least 3x/week, reduce emotional/ stress eating, increase fruits/veg etables, take 15-20 minutes to eat.Review ed food diary with pt and discussed reduction of carbs/fats in diet. Gave meal planning handout and referred to tool room lathe operator/ nutritioni st for further evaluation /tx. Referred to bariatrics for further evaluation /tx. Cyst of kidney 464045228 N28.1 LeftFindin g on abd u/s (12/17/22), repeat scan this month as arie benavides.Pt reports she has completed follow up imaging per Dr. Rios as well as labs. Has an appt with him next week on 04/16/23. Leukopenia 97915849 D72. 819 Chronicwbc 3.8 (03/09/2020) , 3.6 ( 2)May be adverse affect of previous covid infection, normal for this patient, or represent a pathology. Being managed by Dr. Pham (hematolog y/oncology ) [id number] Chastity Smith NP [facility] [address] [place] [address] 04/23/2023 18:11:27 04/23/2023 18:52:58 [id number] Chastity Smith NP [facility] [address] [place] [address] 05/21/2023 18:10:01 05/23/2023 12:01:19 [id number] Chastity Smith NP [facility] [address] [place] [address] 07/16/2023 18:30:40 07/18/2023 16:17:03 [id number] Chastity Smith NP [facility] [address] [place] [address] 08/20/2023 18:43:57 08/21/2023 18:36:52 [id number] ZEYNEP Nielson [facility] [address] [place] [address] 08/30/2023 15:48:37 08/30/2023 17:40:17 Pre-surgery evaluation 288468548 Z01.818 she is wanting to have evaluation for bariatric surgery (Dr. Paez)- already had ekg (noted to be bradycardi c, sinus rhythm in the hospital earlier this month)-lab s already obtained through surgeon-bp 128/86, 58 no de león, cp, sob-surgic al clearance for completed Mass of neck 420862971 R 22.1 -last US was 2017-US ordered [id number] [facility] [address] [address] 09/26/2023 18:31:39 09/26/2023 19:01:49 [id number] [facility] [address] [address] 10/24/2023 18:36:28 10/24/2023 19:08:03 [id number] [facility] [address] [address] 02/13/2024 13:58:04 02/13/2024 14:48:50 [id number] [facility] [address] [address] 06/22/2024 17:58:21 06/22/2024 19:07:28 [id number] [facility] [address] [address] 09/17/2024 15:00:03 09/17/2024 15:55:57 [id number] [facility] [address] [address] 12/07/2024 18:35:54 12/10/2024 07:08:07 [id number] [facility] [address] [address] 01/05/2025 18:34:07 01/07/2025 07:10:52 Health Concerns Section Related Observation LastModified by Organization Detai ls LastModified Time None Recorded Concern Status LastModified by Organization Details LastModified Time None Recorded Advance Directives Directive N: Payers Encounter Date Sequence Insurance Name Policy Number Policy Gomez Covered Member ID Gomez Member ID Guarantor Name 02/26/2023 1 [employer] (PPO) [id number] Jeaneth Junior [id number] Jeaneth Junior 02/26/2023 2 [facility] [id number] Jeaneth Foster [id number] Jeaneth Galicia Foster 03/13/2023 1 [employer] [id number] Jeanethvladimir Junior [id number] Jeaneth Junior 03/13/2023 2 [facility] [id number] Jeaneth Vernon [id number] Jeaneth Junior 04/10/2023 1 [place] [id number] Jeaneth Vernon [id number] Jeaneth Junior 04/10/2023 2 [facility] [id number] Jeaneth Vernon [id number] Jeaneth Junior 08/30/2023 1 [employer] [id number] Jeaneth Junior [id number] Jeaneth Junior 08/30/2023 2 [facility] [id number] Jeaneth Vernon [id number] Jeaneth Junior Notes Date Note Type Note Provider Name and Address Organization Details Recorded Time 02/26/2023 text/html 1. Pt in office for 6 month f/u appt to review referral recommendations. Pt reports Dr. Pham (hem/onc) started her on iron.2. Pt states Dr. Rios (nephrology) has her scheduled to have an u/s and some additional lab work3. Pt c/o bilat low back pain that radiates down into her buttocks and legs. Pt states sx worsened during walking while on vacation in [place].4. Pt c/o ongoing weight gain despite trying to reduce intake. Pt states she is not exercising regularly.5. Pt c/o swelling in lower legs/feet (left > right). States sx improve with elevation of legs. Myron Schmitt, [employer] [address] [facility] [address], [place], [address], [facility] [employer] 02/26/2023 14:47:15 03/13/2023 text/html 03/13/23: 1. Pt in office for 2 week f/u on food diary. Pt states she is really struggling with weight loss. Pt states she did her food diary and knows that she is eating out too much and eating too much junk food. 02/26/23: 1. Pt in office for 6 month f/u appt to review referral recommendations. Pt reports Dr. Pham (hem/onc) started her on iron.2. Pt states Dr. Rios (nephrology) has her scheduled to have an u/s and some additional lab work3. Pt c/o bilat low back pain that radiates down into her buttocks and legs. Pt states sx worsened during walking while on vacation in [place].4. Pt c/o ongoing weight gain despite trying to reduce intake. Pt states she is not exercising regularly.5. Pt c/o swelling in lower legs/feet (left > right). States sx improve with elevation of legs. Myron Schmitt, [employer] [address] [facility], [address], [place], [address], [place] [facility] [employer] 03/13/2023 08:57:33 04/10/2023 text/html 04/10/23: 1. Pt in office for 4 week f/u on obesity. Pt states she hasn't heard from bariatric provider or tool room lathe operator/nutriti onist. Pt states she has been working on changing over to a raw foods diet and only grilling her meats.2. Pt reports she has completed labs and imaging for nephrology (Dr. Rios) and has an appt on 04/16/23. 03/13/23: 1. Pt in office for 2 week f/u on food diary. Pt states she is really struggling with weight loss. Pt states she did her food diary and knows that she is eating out too much and eating too much junk food. 02/26/23: 1. Pt in office for 6 month f/u appt to review referral recommendations. Pt reports Dr. Pham (hem/onc) started her on iron.2. Pt states Dr. Rios (nephrology) has her scheduled to have an u/s and some additional lab work3. Pt c/o bilat low back pain that radiates down into her buttocks and legs. Pt states sx worsened during walking while on vacation in [place].4. Pt c/o ongoing weight gain despite trying to reduce intake. Pt states she is not exercising regularly.5. Pt c/o swelling in lower legs/feet (left > right). States sx improve with elevation of legs. CARMEN Negron [address], [facility] [address], [place], [address], [employer] [facility] [employer] [facility] 04/10/2023 18:43:28 08/30/2023 text/html Pt is here to discuss thyroid issues and clearance for surgery CARMEN Nielson-Irena [address], [facility] [address], [place], [address], [facility] 09/04/2023 15:12:24 OBGyn Episode No OBEpisode recorded.
--- OUTSIDE RECORDS SUMMARY | 2025-01-11 17:45 | XMS_ITS | Clinical Summary ---
Author Organization [facility] Address [address] [address] Phone Care Team Providers Care Door Clamper Name Role Phone Myron Schmitt MEDICAL INSURANCE BILLER Primary Care Provider [phone] Allergies Active Allergy Reactions Criticality Noted Date Comments Bupropion Nausea And Vomiting Low 01/21/2013 Visual distortions, nausea, headache Latex Rash Medium 09/22/2009 Penicillins Hives Medium 06/20/2009 Sulfa Antibiotics Hives Medium 06/20/2009 Zolpidem 06/30/2020 Medications Ventolin HFA 108 (90 Base) MCG/ACT inhaler Inhale 2 puffs every 4 (four) hours if needed 0 Active amLODIPine (NORVASC) 10 MG tablet Take 10 mg by mouth 1 (one) time each day 0 Active ARIPiprazole (ABILIFY) 10 MG tablet TAKE 1 TABLET BY MOUTH ONCE DAILY AT BEDTIME FOR 30 DAYS 0 Active carvedilol (COREG) 12.5 MG tablet Take 12.5 mg by mouth 2 (two) times a day 0 Active FLUoxetine (PROzac) 20 MG tablet 0 Active fluticasone (FLONASE) 50 MCG/ACT nasal spray USE 2 SPRAY(S) IN EACH NOSTRIL ONCE DAILY 0 Active lisinopril-hydr oCHLOROthiazide (PRINZIDE) 20-12.5 MG per tablet Take 2 tablets by mouth 1 (one) time each day 0 Active methocarbamol (ROBAXIN) 750 MG tablet Take 750 mg by mouth every 6 (six) hours if needed 0 Active loratadine (CLARITIN) 10 MG tablet Take 10 mg by mouth 7 Active propranolol (INDERAL) 10 MG tablet TAKE 1 TABLET BY MOUTH 4 TIMES DAILY NEEDED FOR HIGH BLOOD PRESSURE 0 Active spironolactone (ALDACTONE) 25 MG tablet Take 25 mg by mouth 1 (one) time each day 0 Active traZODone (DESYREL) 100 MG tablet TAKE 1 TABLET BY MOUTH ONCE DAILY AT BEDTIME FOR 30 DAYS 0 Active triamcinolone (KENALOG) 0.1 % ointment APPLY A THIN LAYER TOPICALLY TO THE AFFECTED AREA(S) TWICE DAILY 0 Active Multiple Vitamins-Minera ls (MULTIVITAMIN ADULT EXTRA C PO) multivitamin Active Active Problems Problem Noted Date Diagnosed Date Dyspnea 04/19/2020 Anxiety 03/08/2020 Irritable bowel syndrome with constipation 10/24 Overview (06/30/2020): Last Assessment & Plan: Discussed bowel management with consistent fiber diet, minimizing triggering foods. Use Florastor or similar. Prediabetes 09/12/2012 Overview (06/30/2020): Last Assessment & Plan: A1c now below prediabetic range. Encouraged continued attention to diet and recommended increased physical activity. Hypertension 08/13/2009 Overview (06/30/2020): Last Assessment & Plan: BP slightly elevated, but without meds past two days. Reminded of importance of taking medications regularly (especially carvedilol to prevent rebound HTN). Immunizations Immunization Administration Dates Next Due H1N1 All Forms 06/05/2009 Hep B, Unspecified 07/05/2007 Influenza TIV (IM) 06/25/2016,06/28/2015, 009 Influenza, Injectable, Quadr ivalent, Preservative Free 05/16/2020 Influenza, Unspecified 05/21/2018,2013,05/08/2013,2010 Tdap 08/30/2016 Tetanus 07/05/2007 Family History Medical History Relation Comments Kidney disease Neg Hx Social History Tobacco Use Types Packs/Day Years Used Date Smoking Tobacco: Never Smokeless Tobacco: Never Alcohol Use Standard Drinks/Week Comments Yes 0 (1 standard drink = 0.6 oz pur e alcohol) occ Comments Unknown Sex and Gender Information Value Date Recorded Sex Assigned at Not on file Legal Sex Female 11:52 AM MDT Gender Identity Not on file Sexual Orientation Not on file Last Filed Vital Signs Vital Sign Reading Time Taken Comments Blood Pressure 132/80 07/10/2020 6:21 AM [employer]LOROBUTADI[employer] SCRUBBER OPERATOR Pulse 84 07/10/2020 6:21 AM CHLOROBUTADIENE SCRUBBER OPERATOR Temperature 36.7 C (98 F) 07/10/2020 6:21 AM CHLOROBUTADIENE SCRUBBER OPERATOR Respiratory Rate - - Oxygen Saturation - - Inhaled Oxygen Concentration - - Weight 111 kg (244 lb) 07/10/2020 6:21 AM CHLOROBUTADIENE SCRUBBER OPERATOR Height 157.5 cm (5' 2) 07/10/2020 6:21 AM CHLOROBUTADIENE SCRUBBER OPERATOR Body Mass Index 44.63 07/10/2020 6:21 AM CHLOROBUTADIENE SCRUBBER OPERATOR Plan of Treatment Health Maintenance Due Date Last Done Comments Influenza Vaccine (Season Ended) 2025 05/16/2020, 05/21/2018, 06/25/2016, Additional history exists Insurance Care Teams Door Clamper Relationship Specialty Start Date End Date Myron Schmitt FNP [address] [place] [address] PCP - General Family Medicine 05/16/20
--- OUTSIDE RECORDS SUMMARY | 2025-01-11 17:46 | XMS_ITS | Encounter Summary ---
Author Organization [facility] Address [address] [place] [address] Care Team Providers Care Parts Control Clerk Name Role Phone Antonio Dalton MD Primary Care Provider + [phone] Cisco Burnette MD Primary Care Provider [phone] Antonio Dalton MD Primary Care Provider [phone] Reason for Visit * Reason Onset Date Comments MEDICATION REFILL 01/31/2018 Encounter Details Date Type Department Care Team ([facility] Contact Info) Description 01/31/[address] [facility] Family [facility] Community Medicine [address] [address] Geraldine Farmer MD [address] [place] [address] MEDICATION REFILL Social History Tobacco Use Types Packs/Day Years Used Date Smoking Tobacco: Never Smokeless Tobacco: Never Alcohol Use Standard Drinks/Week Comments Yes 0 (1 standard drink = 0.6 oz pur e alcohol) Comments Unknown Sex and Gender Information Value Date Recorded Sex Assigned at Not on file Legal Sex Female 2:35 PM CDT Gender Identity Not on file Sexual Orientation Not on file documented as of this encounter Plan of Treatment Upcoming Encounters Date Type Department Care Team (Late Contact Info) Description 01/12/2025 1:00 PM CDT Office Visit [facility] - Family Medicine [address] [facility], [facility] [address] [place] [phone] Alfonzo Tavares PA-C [address] [facility] [address] [place] [address] documented as of this encounter Visit Diagnoses Not on filedocumented in this encounter Care Teams Parts Control Clerk Relationship Specialty Start Date End Date Antonio Dalton MD PCP - General Family Medicine 12/04/18 12/10/18 Cisco Burnette MD PCP - General 12/11/18 12/24/18 Antonio Dalton MD PCP - General 12/25/18 documented as of this encounter
--- OUTSIDE RECORDS SUMMARY | 2025-01-11 17:46 | XMS_ITS | Data Portability ---
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 4 text/html recently hospitalized at [facility] with low blood pressure Coreg was cut in half losartan hydrochlorothiazide and spironolactone were discontinued she had IGGY with creatinine bumping to 2.3. Renal ultrasound was negative creatinine came down to 1.7 by the time she was discharge. she continues to have dizzy sensation of her food getting stuck in the retro sternal area. She has not been following her pureed diet as often as she should. She still has some nausea Marcy Eddy MD Attn: Accounting,[address] [facility], [place], [address], [facility] 03/01/2024 16:47:54 4 text/html she is feeling better she has not had any dizziness or chest pain or shortness on breath bowels are doing little bit better slowly coming around cholesterol was up so we started her on atorvastatin she says she is getting the medicine taking it no side effects Marcy Eddy MD Attn: Accounting,[address] [facility], [place], [address], [facility] 04/13/2024 23:01:47 4 text/html hypertension no headache or dizziness dyslipidemia does try to follow her diet GERD has been stable thyroid nodule needs to be biopsied still her insomnia has been doing okay. CKD 3 she has been asymptomatic Marcy Eddy MD Attn: Accounting,[address], [place], [address], [place] [facility] 06/14/2024 16:57:59 5 text/html biopsy of thyroid was nondiagnostic GERD has been stable blood pressure is controlled prediabetes she could do better with her diet allergic rhinitis has been stable obesity she struggles dyslipidemia she struggles at times with her diet Marcy Eddy MD Attn: Accounting,[address], [place], [address], [place] [facility] 10/04/2024 15:29:05 OBGyn Episode No OBEpisode recorded.
--- OUTSIDE RECORDS SUMMARY | 2025-01-11 17:46 | XMS_ITS | Clinical Summary ---
[facility] Organization [facility] Address [address] [place] [address] Care Team Providers Care Satellite Specialist Name Role Phone Unavailable Primary Care Provider Unavailabl e Allergies Active Allergy Reactions Criticality Noted Date Comments Aripiprazole Unknown 04/13/2023 Bupropion Hallucination,Nausea and Vomiting,Unknown High 01/21/2013 Visual distortions, nausea, headache Bupropion Hcl Delirium,Hallucinati o n Medium 12/05/2022 Latex Rash Low 12/05/2022 Penicillins Hives High 12/05/2022 Pineapple Anaphylaxis High 12/05/2022 Sulfa (Sulfonamide Antibiotics) Hives,Unknown High 04/13/2023 Reaction: Hives, Zolpidem Unknown 06/30/2020 Medications carvediloL (COREG) 12.5 mg tablet Take 12.5 mg by mouth 2 times daily. 3 Active spironolactone (ALDACTONE) 25 mg tablet Take 25 mg by mouth daily. 3 Active OLANZapine (ZyPREXA) 2.5 mg tablet TAKE 1 TABLET BY MOUTH ONCE DAILY AT BEDTIME FOR 30 DAYS 3 Active pantoprazole (PROTONIX) 40 mg Tablet, Delayed Release (E.C.) TAKE 1 TABLET BY MOUTH IN THE MORNING 30 MINUTES BEFORE BREAKFAST FOR ACID REFLUX 3 Active lisinopril-hydr oCHLOROthiazide (ZESTORETIC) 20-12.5 mg tablet 3 Active propranoloL (INDERAL) 10 mg tablet 1 time daily as needed. 0 Active traZODone (DESYREL) 50 mg tablet Take 1 Tablet by mouth daily at bedtime. 0 Active fluticasone propionate (FLONASE) 50 mcg/spray [place], Suspension nasal inhaler Administer 2 Sprays in each nostril daily. 0 Active FLUoxetine (PROzac) 40 mg capsule TAKE 1 CAPSULE BY MOUTH ONCE DAILY IN THE MORNING FOR 30 DAYS 3 Active triamcinolone acetonide (KENALOG) 0.1 % Ointment APPLY A THIN LAYER TOPICALLY TO THE AFFECTED AREA(S) TWICE DAILY 0 Active amLODIPine (NORVASC) 10 mg tablet Take 10 mg by mouth daily. 3 Active meloxicam (MOBIC) 7.5 mg tablet Take 7.5 mg by mouth daily. 3 Active Active Problems No known active problems Family History Medical History Relation Name Comments Diabetes Brother Heart Attack Brother Heart Disease Father Hypertension Mother Diabetes Sister Relation Name Status Comments Brother Alive Father Mother Alive Sister Alive Son 1 Alive Son 2 Alive Social History Tobacco Use Types Packs/Day Years Used Date Smoking Tobacco: Never Smokeless Tobacco: Never Tobacco Cessation:Counseling Given: Not Answered Alcohol Use Standard Drinks/Week Comments Never 0 (1 standard drink = 0.6 oz pur e alcohol) Comments Unknown Sex and Gender Information Value Date Recorded Sex Assigned at Not on file 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 Gender Identity Not on file Sexual Orientation Not on file Last Filed Vital Signs Vital Sign Reading Time Taken Comments Blood Pressure 92/66 04/13/2023 11:44 AM CDT Pulse 71 04/13/2023 11:44 AM CDT Temperature 36.6 C (97.9 F) 04/13/2023 11:44 AM CDT Respiratory Rate 16 04/13/2023 11:44 AM CDT Oxygen Saturation 93% 04/13/2023 11:44 AM CDT Inhaled Oxygen Concentration - - Weight 110.7 kg (244 lb) 12/24/2022 2:30 PM CDT Height 157.5 cm (5' 2) 12/05/2022 2:55 PM CDT Body Mass Index 44.63 12/05/2022 2:55 PM CDT Plan of Treatment Health Maintenance Due Date Last Done Comments HPV/Cotest (21-29) 1990 CERVICAL CANCER SCREENING 1999 HPV/Cotest (30-65) 1999 PAP SMEAR 1999 HEPATITIS B VACCINES (2 of 3 - 19+ 3-dose series) 08/02/2007 07/05/2007 BREAST CANCER SCREENING 2009 COLORECTAL SCREENING 2014 Colorectal Cancer Screening 2014 FIT-DNA Q 3 years 2014 FIT/FOBT Q 1 year 2014 Flex Sig/CT Colonography Q 5 years 2014 ZOSTER VACCINE (1 of 2) 2019 INFLUENZA VACCINE (#1) 2024 , 06/25/2016, 06/28/2015, Additional history exists COVID-19 Vaccine ( - 2023-2 5 season) 2024 01/19/2021, 12/22/2020 DTAP/TDAP/TD VACCINES (2 - T d or Tdap) 08/30/2026 08/30/2016 Insurance [facility] [id number] [facility]
--- OUTSIDE RECORDS SUMMARY | 2025-01-11 17:46 | XMS_ITS | Patient Health Record ---
Author Organization [facility] Address [address] [place] [address] Care Team Providers Care Chief Merchandising Officer Name Role Phone Matt Burns Primary Care Provider Reason For Referral No Information Immunizations Vaccine Route Administration Date Status Comme nts COVID-19 Moderna 2nd IM Intramuscular 01/19/2021 Administered COVID-19 Moderna 1ST IM Intramuscular 12/22/2020 Administered EUA date 0. Screening reviewed and consent signed. Patient tolerated well. Plan Of Treatment No Information Insurance Providers Payer Name Payer Address Payer Phone Subscriber Number Group Number Insured Name Patient Relationship to Insured Coverage Start Date Coverage End Date [facility] [address] [place] [address] [id number] Jeaneth Junior Self - patient is the insured 0
--- OUTSIDE RECORDS SUMMARY | 2025-01-11 17:46 | XMS_ITS | Clinical Summary ---
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 Gender Identity Not on file Sexual Orientation Not on file Plan of Treatment Health Maintenance Due Date Last Done Comments Hepatitis C Virus (HCV) Screening 1969 Hepatitis B Immunization (1 of 3 - 19+ 3-dose series) 1988 Pap Smear 1990 Cervical Cancer Screening (CCS) 1999 HPV/Cotest 1999 Colonoscopy 2014 Colorectal Cancer Screening 2014 Cologuard 2019 Immunochemical Fecal Occult Blood 2019 Mammogram 2019 Pneumococcal Immunization (50+ years) (1 of 1 - PCV) 2019 Zoster Immunization (1 of 2) 2019 Influenza Immunization (#1) 04/05/202405/06, 05/16/2020, 06/01/2019, Additional history exists SARS-COV-2 Immunization ( season) 2024 08/01/2021, 01/19/2021, 12/22/2020 Respiratory Syncytial Virus (RSV) Immunization (Adult) (1 - 1-dose 75+ series) 2044 DTaP/Tdap/Td Immunization Discontinued 08/30/2016 TdaP Immunization Completed 08/30/2016 Meningococcal Immunization (ACWY) Aged Out No longer eligible based on patient's age to complete this topic Pneumococcal Immunization Combined Aged Out No longer eligible based on patient's age to complete this topic Rotavirus Immunization Aged Out No lo nger eligible based on patient's age to complete this topic Insurance [address] [place] [address] [facility] Care Teams Gear Room Keeper Relationship Specialty Start Date End Date Provider, None ASHLEY PCP - General 10/09/21
[2025-01-11 18:18] LABS: Creatinine Urine 211.5 mg/dL
[2025-01-11 18:24] LABS: Albumin Level 4.1 g/dL (3.5-5.1); Anion Gap 9 mmol/L (4-12); Blood Urea Nitrogen 22 mg/dL (7-17); Calcium 9.3 mg/dL (8.4-10.2); Carbon Dioxide 28 mmol/L (22-30); Chloride 101 mmol/L (98-107); Estimated Glomerular Filt Rate 36; Glucose 100 mg/dL (65-110); Phosphorus 4.5 mg/dL (2.5-4.5); Potassium 4.4 mmol/L (3.4-5.0); Sodium 138 mmol/L (137-145)
[2025-01-11 18:53] LABS: Total Protein Urine Random < 5 mg/dL; Ur Ttl Prot Creatinine Ratio < 0.02 mg/mg (0-0.20)
== END 2025-01-11 17:43 | disposition home or self-care (01) ==
LOC: ANHLAB 17:43
PROVIDERS: PCP Internal Medicine; Visit Provider Internal Medicine Nephrology
DX: I12.9 Hypertensive chronic kidney disease with stage 1 through stage 4 chronic kidney disease, or unspecified chronic kidney disease (principal); N18.31 Chronic kidney disease, stage 3a
CPT/HCPCS: 36415; 80069; 82570; 84156

== ENCOUNTER 2025-05-19 17:48 | Outpatient (CLI) | payer BC, OTHER, SELFPAY ==
--- OUTSIDE RECORDS SUMMARY | 2025-05-19 17:56 | XMS_ITS | Clinical Summary ---
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 ADVISOR Gender Identity Not on file Sexual Orientation Not on file Plan of Treatment Health Maintenance Due Date Last Done Comments Hepatitis C Virus (HCV) Screening 1969 Hepatitis B Immunization (1 of 3 - 19+ 3-dose series) 1988 Pap Smear 1990 Cervical Cancer Screening (CCS) 1999 HPV/Cotest 1999 Cologuard 2014 Colonoscopy 2014 Colorectal Cancer Screening 2014 Immunochemical Fecal Occult Blood 2014 Pneumococcal Immunization (50+ years) (1 of 1 - PCV) 2019 Zoster Immunization (1 of 2) 2019 Influenza Immunization (#1) 04/05/202505/06, 05/16/2020, 06/01/2019, Additional history exists SARS-COV-2 Immunization ( season) 2025 08/01/2021, 01/19/2021, 12/22/2020 Respiratory Syncytial Virus (RSV) Immunization (Adult) (1 - 1-dose 75+ series) 2044 DTaP/Tdap/Td Immunization Discontinued 08/30/2016 TdaP Immunization Completed 08/30/2016 Human Papillomavirus (HPV) Immunization Aged Out No longer eligible based on patient's age to complete this topic Meningococcal Immunization (ACWY) Aged Out No longer eligible based on patient's age to complete this topic Rotavirus Immunization Aged Out No lo nger eligible based on patient's age to complete this topic [place] [address] [place] [address] [facility] Care Teams Log Roper Relationship Specialty Start Date End Date Provider, None [place] PCP - General 10/09/21
--- OUTSIDE RECORDS SUMMARY | 2025-05-19 17:56 | XMS_ITS | Encounter Summary ---
Author Organization [facility] Address [address] [facility] [place] [address] Care Team Providers Care Supervisor Keymodule Assembly Name Role Phone Antonio Dalton MD Primary Care Provider [phone] Alfonzo Tavares PA-C Primary Care Provider [phone] Reason for Visit * Reason Onset Date Comments MEDICATION REFILL 01/27/2020 Encounter Details Date Type Department Care Team (Late st Contact Info) Description 01/27/2020 Refill [facility] [address] [place] [address] Antonio Dalton MD [address] [phone] MEDICATION REFILL Social History Tobacco Use Types [...] Care Team (Late st Contact Info) Description 07/22/2025 8:30 AM WORK AND FAMILY LIFE CONSULTANT Office Visit [facility] [facility], [place] [address] [place] [address] Alfonzo Tavares PA-C [address] [address] documented as of this encounter Goals Goal Patient Goal Type Associated Problems Recent Progress Patient-Stated? Author Follow-up with weight management as directed Weight No Antonio Dalton MD Note: Goal 185 lb Goal for February 2019: 229 (12) documented as of this encounter Visit Diagnoses Not on filedocumented in this encounter Care Teams Supervisor Keymodule Assembly Relationship Specialty Start Date End Date Antonio Dalton MD PCP - General 12/25/18 01/11/25 Alfonzo Tavares PA-C [address] [address] PCP - General Physician Automotive Instructor 01/12/25 documented as of this encounter
--- OUTSIDE RECORDS SUMMARY | 2025-05-19 17:56 | XMS_ITS | Patient Health Record ---
Author Organization [facility] Address [address] [place] [address] Care Team Providers Care Package Line Operator Name Role Phone Matt Burns Primary Care Provider [phone] Reason For Referral No Information Immunizations Vaccine [...] Insured Coverage Start Date Coverage End Date [facility] [address] [place] [address] [phone] [id number] Jeaneth Junior Self - patient is the insured 0
--- OUTSIDE RECORDS SUMMARY | 2025-05-19 17:56 | XMS_ITS | Encounter Summary ---
Author Organization [facility] Address [address] [facility] [place] [address] Care Team Providers Care Bottom Man Name Role Phone Alfonzo Tavaers PA-C Primary Care Provider [phone] Reason for Visit * Reason Onset Date Comments MEDICATION REFILL 01/28/2025 Encounter Details Date Type Department Care Team (Late st Contact Info) Description 01/28/2025 Refill [facility] [address] [place] [address], [place] [address] Antonio Dalton MD [address] [place] [phone] MEDICATION REFILL Social History Tobacco Use Types Packs/Day Years Used Date Smoking Tobacco: Never Smokeless Tobacco: Never Alcohol Use Standard Drinks/Week Comments Yes 0 (1 standard drink = 0.6 oz pur e alcohol) special occasions PHQ-2 Answer Date Recorded Patient Health Questionnaire-2 Score 2 01/12/2025 Comments No Sex and Gender Information Value Date Recorded Sex Assigned at Not on file Legal Sex Female 2:35 PM CDT Gender Identity Not on file Sexual Orientation Not on file documented as of this encounter Plan of Treatment Upcoming Encounters Date Type Department Care Team (Late st Contact Info) Description 07/22/2025 8:30 AM CAFETERIA ASSISTANT Office Visit [facility] [address] [facility], [facility] [address] [place] [address] Alfonzo Tavares PA-C [address] [facility] [address] [place] [address] documented as of this encounter Goals Goal Patient Goal Type Associated Problems Recent Progress Patient-Stated? Author Follow-up with weight management as directed Weight No Antonio Dalton MD Note: Goal 185 lb Goal for February 2019: 229 (12) documented as of this encounter Visit Diagnoses Diagnosis Rhinosinusitis Unspecified sinusitis (chronic) documented in this encounter Care Teams Bottom Man Relationship Specialty Start Date End Date Alfonzo Tavares PA-C [address] [place] [address] PCP - General Physician Placer Miner 01/12/25 documented as of this encounter
--- OUTSIDE RECORDS SUMMARY | 2025-05-19 17:56 | XMS_ITS | Clinical Summary ---
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
--- OUTSIDE RECORDS SUMMARY | 2025-05-19 17:56 | XMS_ITS | Clinical Summary ---
Author Organization [facility] [address] Address [address] [place] [address] Care Team Providers Care Hvac R Tech Name Role Phone Sindi Rupal Day DPT Unavailable Shelton Eddy MD Primary Care Provider [phone] Allergies Active Allergy Reactions Criticality Noted Date [...] post Surgery 90 tablet 3 01/22/20 24 Active calcium citrate-vitamin D3 200 mg-6.25 mcg (250 unit) tabletIndications: Hypocalcemia Prevention Take 2 tablets by mouth 3 (three) times a day Start post-surgery 540 tablet 3 01/22/20 24 Active ursodioL (ACTIGALL) 300 mg capsuleIndications :Cholelithiasis Prevention Take 1 capsule (300 mg total) by mouth 2 (two) times a day Start post-surgery 180 capsule 1 01/22/20 24 Active polyethylene glycol (MIRALAX) 17 gram/dose bulk powderIndications: constipation Take 17 g by mouth 2 (two) times a day Start post-surgery 1020 g 01/22/20 24 Active albuterol HFA (PROVENTIL HFA,VENTOLIN HFA,PROAIR HFA) [...] kidney disease) stage 3, GFR 30-59 ml/min ([facility]) Family History Medical History Relation Name Comments [...] Tobacco: Never Tobacco Cessation:Counseling Given: Not Answered [facility] Utilities Answer Date Recorded In the past 12 months has [employer] electric, gas, oil, or water company threatened to shut off services in your home? No 03/04/2024 Social Connection and Isolation Panel Answer Date Recorded In a typical week, how many times do you talk on the phone with family, friends, or neighbors? More than three times a week 03/04/2024 How often do you get togethe r with friends or relatives? More than three times a week 03/04/2024 How often do you attend chur ch or jain services? Never 03/04/2024 Do you belong to any clubs o r organizations such as yazidi groups, unions, fraternal or athletic groups, or [...] any time in the past 12 m [facility], were you homeless or living in a m[facility]p (including now)? No 03/04/2024 Personal Safety Answer Date Recorded Have you ever been in or are you currently in a harmful physical or emotional relationship or is someone making you feel afraid or unsafe? Denies 03/05/2024 Comments No Sex and Gender Information Value Date Recorded Sex Assigned at Not on file Legal Sex Female 3:10 AM CHIEF CRUISER Gender Identity Female 04/19/2023 11:12 PM CDT [...] Zoster Vaccine (1 of 2) 2019 01/08/2022 Depression Screening 03/02/2025 03/02/2024 Covid-19 Vaccine (3 - 2024- season) 2025 01/19/2021, 12/22/2020 Influenza Vaccine (#1) 2025 , 05/31/2021, 05/16/2020, Additional history exists DTaP/Tdap/Td Vaccine (2 - Td or Tdap) 08/30/2026 08/30/2016, 07/05/2007 Hepatitis B Screening Completed 07/05/2007 Pneumococcal vaccine <65 Aged Out No longer eligible based on patient's age to complete this topic Medical Devices Implanted Type Area Principal Consultant Device Identifier Shelf Expiration Date Model / Serial / Lot Tank Top TV [employer] Bariatric Peristrip Non Crosslinked Bovine Pericardium For Endo Rachel Thin [id number] - [id number] Implanted:Qty: 1 on 02/04/2024 by Shawn Greco MD at [facility] N/A: [employer] 12/03/2025 [id number] / / [id number] [employer] Biological Bariatric Peristrip Non Crosslinked Bovine Pericardium For Endo Rachel Thin [id number] - [id number] Implanted:Qty: 1 on 02/04/2024 by Shawn Greco MD at [facility] N/A: [employer] 10/15/2025 [id number] / / [id number] Insurance [facility]PP[facility] Address: [address] [facility]PPO Address: [address] [address] [facility]/PPO Address: [address] [address] [place] [address] Advance Directives For more information, please contact: [phone] * Full Code (Latest Code Status on File) Date Activated Date Inactivated Comments 03/03/2024 8:27 PM 03/08/2024 7:26 PM * Full Code Date Activated Date Inactivated Comments 02/04/2024 12:25 PM 02/06/2024 6:16 PM * Full Code Date Activated Date Inactivated Comments 07/08/2023 7:31 AM 07/08/2023 1:14 PM Care Teams Hvac R Tech Relationship Specialty Start Date End Date Shelton Eddy MD [address] [facility] [address] [place] [address] PCP - General Internal Medicine 12/06/23 Rupal Delong DPT [address] [facility] [address] [place] [address] Physical Therapist Physical Therapy 06/17/23
--- OUTSIDE RECORDS SUMMARY | 2025-05-19 17:56 | XMS_ITS | Clinical Summary ---
Author Organization [facility] Address [address] [facility] [place] [address] Care Team Providers Care Human Resources Temp Name Role Phone Alfonzo Tavares PA-C Primary Care Provider [phone] Source Comments [facility],non-owned Affiliates and Associated Physician Practices is amultiple site organization consisting of ambulatory clinics and hospital sitesin [place] and [place]. This disclosure is being madepursuant to the Care Everywhere program and may not contain all information available regarding this patient. Last updated 18.[facility] Allergies Active Allergy Reactions Criticality Noted Date Comments Bupropion Nausea and/or Vomiting Low 01/21/2013 Visual distortions, nausea, headache Latex Rash Medium 09/22/2009 Penicillins Urticaria Medium 06/20/2009 Pineapple Itching 01/12/2025 Tongue goes numb Sulfa Drugs Urticaria Medium 06/20/2009 Medications * This document contains information received from the source organization and may not represent a complete record from that organization. * Be aware that medications may not be up to date on this document. Alwaysverify current medications with the patient. methocarbamol (ROBAXIN) 750 MG tablet TAKE 1 TO 2 TABLETS BY MOUTH THREE TIMES DAILY NEEDED 120 tablet 9 Active COMBIVENT RESPIMAT 20-100 MCG/ACT inhaler 0 Active VENTOLIN HFA 108 (90 Base) MCG/ACT inhaler Inhale 2 puffs by mouth every 6 hours as needed 1 Inhaler 3 0 Active calcitriol (Rocaltrol) 0.25 MCG capsule Take 1 (one) capsule by mouth Three times a week Mondays, Wednesdays and Fridays 4 Active ferrous sulfate 325 (65 FE) MG tablet Take 1 (one) tablet by mouth once daily 4 Active fluocinonide (Lidex) 0.05 % solution Apply to affected area 2 times daily 5 Active hydrOXYzine pamoate (Vistaril) 50 MG capsule 1 (one) capsule 3 times daily as needed 5 Active OLANZapine (ZyPREXA) 10 MG tablet Take 1 (one) tablet by mouth at bedtime 4 Active triamcinolone acetonide (Kenalog) 0.1 % ointment Apply to affected area 2 times daily 4 Active FLUoxetine (PROzac) 60 MG tablet Take 1 (one) tablet by mouth once daily 5 Active Farxiga 5 MG tabletIndications: Chronic Renal Disease Take 1 (one) tablet by mouth once daily Reasons: Chronic Kidney Disease 90 tablet 1 5 Active furosemide (Lasix) 20 MG tabletIndications: Stage 3 chronic kidney disease, unspecified whether stage 3a or 3b CKD (HCC) Take 1 (one) tablet by mouth every morning 90 tablet 1 5 Active amLODIPine (Norvasc) 10 MG tabletIndications: Primary hypertension Take 1 (one) tablet by mouth once daily 90 tablet 1 5 Active atorvastatin (Lipitor) 20 MG tabletIndications: Hyperlipidemia, unspecified hyperlipidemia type Take 1 (one) tablet by mouth once daily 90 tablet 1 5 Active carvedilol (Coreg) 12.5 MG tabletIndications: Primary hypertension Take 1 (one) tablet by mouth 2 times daily 180 tablet 5 Active fluticasone propionate (Flonase) 50 MCG/ACT nasal sprayIndications:R hinosinusitis [place] 2 (two) sprays into each nostril once daily 16 g 5 5 Active vitamin D, ergocalciferol, (Drisdol) 1.25 MG (86745 UT) capsuleIndications :Vitamin D deficiency Take 1 capsule by mouth once a week 12 capsule 5 Active Active Problems Problem Noted Date Diagnosed Date Stage 3 chronic kidney disease 01/12/2025 Small bowel obstruction 03/03/2024 Status post bariatric surgery 02/10/2024 Thyroid nodule 10/08/2023 Gastroesophageal reflux disease 06/20/2023 Major depressive disorder, recurrent episode, mo derate 06/20/2023 Chronic pain of right knee 04/24/2023 Obstructive sleep apnea syndrome 04/05/2021 Irritable bowel syndrome with constipation 10/24 Assessment & Plan (01/23/2018 2:38 PM CDT): Discussed bowel management with consistent fiber diet, minimizing triggering foods. Use Florastor or similar. Primary insomnia 10/24/2016 Bilateral low back pain without sciatica 015 Assessment & Plan (01/23/2018 2:35 PM CDT): Never made it to PT. Will reenter referral today. Prediabetes 09/12/2012 Assessment & Plan (09/26/2018 11:25 AM SAIL REPAIRER): A1c now below prediabetic range. Encouraged continued [...] 08/13/2009 Assessment & Plan (09/26/2018 11:26 AM SAIL REPAIRER): Currently well controlled. Continue current Rx. Assessment & Plan (04/18/2018 11:05 AM CDT): Doing better with improvement in job situation. Continue current Rx. If remains well at next visit, could look to extend visit interval. Assessment & Plan (01/23/2018 2:34 PM CDT): Controlled. Continue current Rx. Hypertension 08/13/2009 Assessment & Plan (09/26/2018 11:26 AM SAIL REPAIRER): BP slightly elevated, but without meds past [...] Diagnosed Date Resolved Date Rhinitis 12/24/2013 11/17/2019 Encounters Date Type Department Care Team Description 04/14/2025 Refill [facility] - Family Medicine [address] [address] Alfonzo Tavares, PAColtonC Refill Request from Last 3 Months Immunizations Immunization Administration Dates Next Due INFLUENZA VACCINE, TRIV. (AF LURIA, FLUZONE TRIVALENT; 6MO+) (IIV3) 06/25/2016,06/28/2015,06/05/2009 COVID MODERNA 12+ yr 50mcg/0.5mL 05/21/2023 COVID MODERNA BIVALENT 12Y+ 50MCG/0.5ML 05/29/2022 COVID PFIZER 12+YR 30MCG/0.3mL 04/29/2024 Covid Moderna primary monova lent 12+ yr 0.5mL 08/01/2021 FLU, HISTORIC VACCINE 05/20/2014,05/08/2013 HepB Unspecified formulation 07/05/2007 INFLUENZA A [id number] VACCINE 06/05/2009 INFLUENZA VACCINE 05/21/2018, 4,05/08/2013,2010 INFLUENZA VACCINE, CELL CULT URE, QUADR. (FLUCELVAX QUADRIVALENT; 6MO+) (CCIIV4) 06/25/2016 INFLUENZA VACCINE, QUADR. (F LUZONE; FLULAVAL; FLUARIX; AFLURIA QUADRIVALENT; 6MO+), 0.5 ML (IIV4) 05/21/2023,05/31/2021,05/16/2020,2018,05/21/2018,06/04/2017 INFLUENZA VACCINE, TRIV. (FL UZONE; FLULAVAL; FLUARIX; AFLURIA TRIVALENT; 6MO+), 0.5 ML (IIV3) 04/29/2024,06/24/2015 PNEUMOCOCCAL PCV20 CONJ VAC IM 01/08/2022 TDAP (7yrs+) 08/30/2016 TETANUS 07/05/2007 Zoster Hzv Vacc Recombinant Inj Im 03/26/2022, iNFLUENZA VACCINE, RECOM-MCBRIDE, QUADR. (FLUBLOCK QUADRIVALENT; 18Y+) (RIV4) 05/29/2022 Family History Medical History Relation Name Comments Hypertension Father Hypertension Mother Relation Name Status Comments Father Mother Social History Tobacco Use Types Packs/Day Years Used Date Smoking Tobacco: Never Smokeless Tobacco: Never Tobacco Cessation:Counseling Given: Not Answered Alcohol Use Standard Drinks/Week Comments Yes 0 [...] Sign Reading Time Taken Comments Blood Pressure 125/85 01/12/2025 1:05 PM CDT Pulse 64 01/12/2025 1:05 PM CDT Temperature 36.7 C (98 F) 01/12/2025 1:05 PM CDT Respiratory Rate 16 08/13/2016 9:19 AM SAIL REPAIRER Oxygen Saturation 99% 01/12/2025 1:05 PM CDT Inhaled Oxygen Concentration - - Weight 89.8 kg (198 lb) 01/12/2025 1:05 PM CDT Height 157.5 cm (5' 2) 01/12/2025 1:05 PM CDT Body Mass Index 36.21 01/12/2025 1:05 PM CDT Plan of Treatment Upcoming Encounters Date Type Department Care Team (Late st Contact Info) Description 07/22/2025 8:30 AM SAIL REPAIRER Office Visit [facility] - Family Medicine [address] [facility], [facility] [address] [place] [address] Alfonzo Tavares PAColtonC [address] [facility] [address] [place] [address] Health Maintenance Due Date Last Done Comments COLON MONITORING 1969 COLONOSCOPY - COLON CA SCREENING 1969 CT COLONOGRAPHY - COLON CA SCREENING 1969 FIT - COLON CA SCREENING 1969 FLEX SIG - COLON CA SCREENING 1969 HEPATITIS C SCREENING 09/21/1987 HEPATITIS B VACCINE (2 of 3 - 19+ 3-dose series) 08/02/2007 07/05/2007 INFLUENZA VACCINE (#1) 2025 , 05/21/2023, 05/29/2022, Additional history exists MAMMOGRAM 02/16/2026 02/17/2024 (Done Outside Per Patient), 07/23/2016, 01/27/2015 DTAP/TDAP/TD VACCINES (3 - Td or Tdap) 08/30/2026 08/30/2016, 07/05/2007 PAP SMEAR 02/11/2027 02/12/2024 (Done Outside Per Patient) SCREENING FOR DIABETES 02/04/2028 , 02/03/2025, 2018, Additional history exists COLOGUARD (AGES 45-75) - COLON CA SCREENING 03/09/2028 03/09/2025, 04/06/2020 Colorectal Cancer Screening 03/09/2028 HIV SCREENING Completed 06/20/2009 PNEUMOCOCCAL VACCINE 50+ Completed 01/08/2022 ZOSTER VACCINE Completed 03/26/2022, 01/08/2022 COVID-19 VACCINE Completed 04/29/2024, , 05/29/2022, Additional history exists DEPRESSION SCREENING Completed 01/12/2025 HIB VACCINE Aged Out No longer eligi [...] Procedure Name Priority Date/Time Associated Diagnosis Comments COLOGUARD TEST Routine 03/09/2025 7:00 AM CDT Screening for colorectal cancer COMPREHENSIVE METABOLIC PANEL Routine 02/03/2025 6:53 AM CDT Primary hypertension MAMMO BILAT SCREENING Routine 07/23/2016 3:01 PM SAIL REPAIRER HIV-1 HIV-2 ANTIBODY W REFLX HIV1 WB Routine 06/20/2009 11:55 AM SAIL REPAIRER from Last 3 Months or Most Recently Relevant to Health Maintenance Results * COLOGUARD TEST (03/09/2025 7:00 AM CDT) Cologuard Negative Negative [facility] Comment: The Cologuard (TM) test was performed on this specimen. NEGATIVE TEST RESULT. A negative Cologuard result indicates a low likelihood that a colorectal cancer (CRC) or advanced adenoma (adenomatous polyps with more advanced pre-malignant features) is present. The chance that a person with a negative Cologuard test has a colorectal cancer is less than 1 in 1500 (negative predictive value >99.9%) or has an advanced adenoma is less than 5.3% (negative predictive value 94.7%). These data are based on a prospective cross-sectional study of 10,000 individuals at average risk for colorectal cancer who were screened with both Cologuard and colonoscopy. (Maria Eugenia Stone al, N Engl J Med 2014;370(14):3843-0437) The normal value (reference range) for this assay is negative. COLOGUARD RE-SCREENING RECOMMENDATION: Periodic colorectal cancer screening is an important part of preventive healthcare for asymptomatic individuals at average risk for colorectal cancer. Following a negative Cologuard result, the Citizen [place] Cancer Society and U.S. Multi-Society Task Force screening guidelines recommend a Cologuard re-screening interval of 3 years. References: [place] Cancer Society Guideline for Colorectal Cancer Screening: https://www.cancer.org/cancer/osyei-qotuej-yewsnd/sgyjzynwf-brjywxmem-yqxpitl/ acs-recommendations.html.; Edison DK, Prosper GONZALES, Shawanda RAMÍREZ, Colorectal Cancer Screening: Recommendations for Physicians and Patients from the U.S. Multi-Society Task Force on Colorectal Cancer Screening , Am J Gastroenterology 2017; 112:7693-1563. TEST DESCRIPTION: Composite algorithmic analysis of stool DNA-biomarkers with hemoglobin immunoassay. Quantitative values of individual biomarkers are not reportable and are not associated with individual biomarker result reference ranges. Cologuard is intended for colorectal cancer screening of adults of either sex, 45 years or older, who are at average-risk for colorectal cancer (CRC). Cologuard has been approved for use by the U.S. FDA. The performance of Cologuard was established in a cross sectional study of average-risk adults aged 50-84. Cologuard performance in patients ages 45 to 49 years was estimated by sub-group analysis of near-age groups. Colonoscopies performed for a positive result may find as the most clinically significant lesion: colorectal cancer [4.0%', advanced adenoma (including sessile serrated polyps greater than or equal to 1cm diameter) [20%' or non- advanced adenoma [31%'; or no colorectal neoplasia [45%'. These estimates are derived from a prospective cross-sectional screening study of 10,000 individuals at average risk for colorectal cancer who were screened with both Cologuard and colonoscopy. (Maria Eugenia Stone al, N Engl J Med 2014;370(14):9894-2594.) Cologuard may produce a false negative or false positive result (no colorectal cancer or precancerous polyp present at colonoscopy follow up). A negative Cologuard test result does not guarantee the absence of CRC or advanced adenoma (pre-cancer). The current Cologuard screening interval is every 3 years. (Citizen [place] Cancer Society and U.S. Multi-Society Task Force). Cologuard performance data in a 10,000 patient pivotal study using colonoscopy as the reference method can be accessed at the following location: www.[employer]/results. Additional description of the Cologuard test process, warnings and precautions can be found at www.[employer].com. Stool STOOL SPECIMEN / Unknown 03/09/2025 7:00 AM CDT 04/07/2025 10:57 AM CDT Alfonzo Tavares PA-C LAB - CHEMISTRY ORDERABLES Fi nal Result [facility] [address] [facility] [address] [place] [address] [facility] [address] [place] [address] * (ABNORMAL) COMPREHENSIVE METABOLIC PANEL (02/03/2025 6:53 AM CDT) Glucose 93 65 - 99 mg/dL [facility] Comment: Fasting reference interval BUN 19 7 - 25 mg/dL [facility] Creatinine 1.50(H) 0.50 - 1.03 mg/dL [facility] eGFR by Cystatin C 41(L) > OR = 60 mL/min/1.7 3m2 [facility] BUN/Creatinine Ratio 13 6 - 22 (calc) [facility] Sodium 143 135 - 146 mmol/L [facility] Potassium 4.0 3.5 - 5.3 mmol/L [facility] Chloride 106 98 - 110 mmol/L [facility] CO2 30 20 - 32 mmol/L [facility] Calcium 9.0 8.6 - 10.4 mg/dL [facility] Protein Total 5.9(L) 6.1 - 8.1 g/dL [facility] Albumin 3.7 3.6 - 5.1 g/dL [facility] Globulin Total 2.2 1.9 - 3.7 g/dL (calc) [facility] Albumin/Globulin Ratio 1.7 1.0 - 2.5 (calc) [facility] Bilirubin Total 1.3(H) 0.2 - 1.2 mg/dL [facility] Alkaline Phosphatase 75 37 - 153 U/L [facility] AST 20 10 - 35 U/L [facility] ALT 21 6 - 29 U/L [facility] Comment: REPORT COMMENT: FASTING:YES Test Performed at: [facility] [address] [facility] [address] BEBE SARGENT MD Blood BLOOD SPECIMEN / Unknown 02/03/2025 6:53 AM CDT 02/03/2025 6:54 AM CDT us Alfonzo Tavares PA-C LAB - CHEMISTRY ORDERABLES Fi nal Result [facility] [address] [place] [address] * MAMMO BILAT SCREENING (07/23/2016 3:01 PM SAIL REPAIRER) Anatomical Region Laterality Modality Breast Bilateral Other Impressions 07/24/2016 9:30 AM SAIL REPAIRER IMPRESSION: No mammographic evidence of malignancy. ASSESSMENT: BI-RADS Category 1: Negative mammogram. RECOMMENDATION: Bilateral screening mammogram in one year. I, Dr. JULIA GRANT M.D. have personally reviewed and interpreted this examination/study. This report was electronically signed by JULIA GRANT M.D. on 07/24/2016 9:30 AM . Narrative 07/24/2016 9:30 AM SAIL REPAIRER BILATERAL SCREENING MAMMOGRAM DATE: 07/23/2016. COMPARISON: Multiple [...] JULIA GRANT M.D. have personally reviewed and interpretedthis examination/study. This report was electronically signed by JULIA GRANT M.D. on07/24/2016 9:30 AM . Christiano Burnette MD MAMMO ORDERABLES Final Resul t * HIV-1 HIV-2 ANTIBODY W REFLX HIV1 WB (06/20/2009 11:55 AM SAIL REPAIRER) HIV 1/2 EIA Antibody NON-REACTI VE NON-REACT KRYSTYNAEris BERGER ([facility]) Comment: A Nonreactive HIV-1/2 antibody result does not exclude HIV infection since the time frame for seroconversion is variable. If acute HIV infection is suspected, antibody retesting and nucleic acid amplification (HIV DNA/RNA) testing is recommended. Test Performed at: [facility] [address] [place] [address] CHRISTIANO ALFARO DO,MPH 06/20/2009 11:5 5 AM SAIL REPAIRER 06/20/2009 11:49 AM SAIL REPAIRER Narrative [facility] ([facility]) - 06/21/2009 2:00 PM SAIL REPAIRER Preferred Lab:->[facility] Loyd Patel MD LAB - CHEMISTRY ORDERABLES Final Result [facility] ([facility]) [id number] from Last 3 Months or Most Recently Relevant to Health Maintenance Insurance ON LICENSE OF [facility] Care Teams Human Resources Temp Relationship Specialty Start Date End Date Alfonzo Tavares PAColtonC [address] [facility] [address] [place] [address] PCP - General Physician Cleaner 01/12/25
--- OUTSIDE RECORDS SUMMARY | 2025-05-19 17:56 | XMS_ITS | Encounter Summary ---
Author Organization [facility] Health Address [address] [facility] [place] [address] Care Team Providers Care Writing Tutor Name Role Phone Antonio Dalton MD Primary Care Provider [phone] Cisco Burnette MD Primary Care Provider [phone] Antonio Dalton MD Primary Care Provider [phone] Alfonzo Tavares PA-C Primary Care Provider [phone] Reason for Visit * Reason Onset Date Comments MEDICATION REFILL 01/31/2018 Encounter Details Date Type Department Care Team (Late st Contact Info) Description 01/31/2018 Refill [facility] [address] [facility] [address] [place] [address] Geraldine Farmer MD [address] [place] [address] MEDICATION REFILL Social History Tobacco Use Types [...] st Contact Info) Description 07/22/2025 8:30 AM ORTHOPAEDIC NURSE Office Visit [facility] - Family Medicine [address] [facility], [address] [place] [phone] Alfonzo Tavares PA-C [address] [facility] [address] [place] [address] documented as of this encounter Visit Diagnoses Not on filedocumented in this encounter Care Teams Writing Tutor Relationship Specialty Start Date End Date Antonio Dalton MD PCP - General Family Medicine 12/04/18 12/10/18 Cisco Burnette MD PCP - General 12/11/18 12/24/18 Antonio Dalton MD PCP - General 12/25/18 01/11/25 Alfonzo Tavares PA-C [address] [facility] [address] [place] [address] PCP - General Physician Fuel Manager 01/12/25 documented as of this encounter
[2025-05-19 18:12] LABS: Total Protein Urine Random 6 mg/dL; Ur Ttl Prot Creatinine Ratio 0.04 mg/mg (0-0.20)
[2025-05-19 18:21] LABS: Albumin Level 3.8 g/dL (3.5-5.1); Anion Gap 6 mmol/L (4-12); Blood Urea Nitrogen 17 mg/dL (7-17); Calcium 8.8 mg/dL (8.4-10.2); Carbon Dioxide 30 mmol/L (22-30); Chloride 102 mmol/L (98-107); Estimated Glomerular Filt Rate 40; Glucose 87 mg/dL (65-110); Potassium 4.1 mmol/L (3.4-5.0); Sodium 138 mmol/L (137-145)
[2025-05-19 18:41] LABS: Parathyroid Intact 129.9 pg/mL (14.5-75.2)
== END 2025-05-19 17:49 | disposition home or self-care (01) ==
PROVIDERS: Visit Provider Internal Medicine Nephrology
DX: I12.9 Hypertensive chronic kidney disease with stage 1 through stage 4 chronic kidney disease, or unspecified chronic kidney disease (principal); N18.31 Chronic kidney disease, stage 3a; N25.81 Secondary hyperparathyroidism of renal origin; E55.9 Vitamin D deficiency, unspecified
CPT/HCPCS: 36415; 80069; 82306; 82570; 83970; 84156